=== PATIENT | female | born 1965 | race Caucasian/White ===

== ENCOUNTER 2020-10-29 09:09 | Outpatient (REF) | payer OTHER, SELFPAY ==
[2020-10-29 10:33] LABS: Thyroid Stimulating Hormone 0.16 uIU/mL (0.32-4.0)
== END 2020-10-29 09:10 | disposition home or self-care (01) ==
LOC: HO.LAB 09:09
PROVIDERS: PCP Internal Medicine; Visit Provider Internal Medicine Endocrinology, Diabetes & Metabolism
DX: E03.9 Hypothyroidism, unspecified (principal)
CPT/HCPCS: 36415; 84443

== ENCOUNTER 2020-12-27 08:06 | Outpatient (REF) | payer OTHER, SELFPAY ==
[2020-12-27 09:46] LABS: Thyroid Stimulating Hormone 1.11 uIU/mL (0.32-4.0)
== END 2020-12-27 08:07 | disposition home or self-care (01) ==
LOC: HO.LAB 08:06
PROVIDERS: PCP Internal Medicine; Visit Provider Internal Medicine Endocrinology, Diabetes & Metabolism
DX: E03.9 Hypothyroidism, unspecified (principal)
CPT/HCPCS: 36415; 84443

== ENCOUNTER 2021-02-07 08:47 | Emergency (ER) | payer OTHER, SELFPAY ==
--- NOTE | ~2021-02-07 | CT_ITS ---
EXAMINATION: CT ABDOMEN AND PELVIS WITH CONTRAST CLINICAL INFORMATION: Abdominal pain with central tenderness COMPARISON: CT abdomen and pelvis 04/29/2014 TECHNIQUE: Multidetector volumetric images were obtained from the superior aspect of the liver through the pubic symphysis following administration 85 mL of Omnipaque 350 intravenous contrast. Sagittal and coronal reformatted images were obtained on the technologist's workstation. Oral contrast: No This CT examination was performed using dose optimization techniques as appropriate, variously including the following: *Automated exposure control *Adjustment of mA and/or kV according to patient size (this includes techniques or standardized protocols for targeted exams where dose is matched to indication/reason for exam; i.e. extremities or head) *Use of iterative reconstruction technique DLP: 360 mGy-cm FINDINGS: LUNG BASES: The visualized lung bases are unremarkable. LIVER, GALLBLADDER, AND BILIARY TREE: The liver is normal in size, shape, and attenuation. No focal hepatic lesion or biliary ductal dilatation is present. The gallbladder is unremarkable with no evidence of radiopaque gallstones, gallbladder wall thickening, or obvious pericholecystic inflammatory changes. PANCREAS: Unremarkable. SPLEEN: Unremarkable. ADRENAL GLANDS: Unremarkable. KIDNEYS AND URETERS: The kidneys are normal in size, shape, and attenuation. No hydronephrosis, hydroureter, or calculi seen. No perinephric stranding. BLADDER: Unremarkable. GASTROINTESTINAL TRACT: There is scattered stool, diverticuli and gas seen throughout the colon without any significant distention. There is no evidence of diverticulitis. The small bowel loops are normal caliber. Appendix is not visualized. ABDOMINAL WALL: No significant hernia is appreciated. LYMPH NODES: Normal. VASCULAR: Unremarkable. PELVIC VISCERA: Unremarkable. OSSEOUS STRUCTURES: There is no lytic or sclerotic process. CT/CT abdomen pelvis w con IMPRESSION: No acute intra-abdominal process seen. Especially there is no abnormality seen in the epigastric region.
--- NOTE | 2021-02-07 09:25 | ED_ITS ---
HPI - Abdominal Pain General Chief Complaint: Abdominal Pain Stated Complaint: abd pain, vomiting Time Seen by Provider: 02/07/21 09:09 Source: patient Mode of arrival: ambulatory Limitations: no limitations History of Present Illness HPI narrative: 56 y/o female with history of insomnia and GERD is presenting to the ER from home complaints epigastgric abdominal pain along with nausea and diarrhea for the last 1 week. She also reports violent vomiting last night after eating. No blood in her vomit or stool. She repors having an EGD several years ago but does not know the results. She has pain in her epigastric area that is worse with eating. No fever, chills, chest pian, SOB. MD elicited complaint: abdominal pain Pertinent past history: none Onset (ago): week(s) (1) Pain Consistency: intermittent Location: epigastric Severity: moderate Quality: aching Radiation: none Migration to: no migration Exacerbating factors: eating Relieving factors: nothing Associated symptoms: nausea, vomiting and diarrhea Related Data Previous Rx's Medication Instructions Recorded ondansetron HCl 4 mg tablet 4 mg PO Q8H PRN #10 tab 02/07/21 (Zofran) pantoprazole 40 mg tablet,delayed 40 mg PO DAILY #30 tab 02/07/21 release (Protonix) Allergies Allergy/AdvReac Type Severity Reaction Status Date / Time Penicillins [PENICILLINS] Allergy Unknown DIFF Unverified 01/28/20 15:22 BREATHING Review of Systems Review of Systems Constitutional: No Fever, No Chills ENT/Mouth: No sore throat, No Rhinorrhea, No Swallowing Difficulty Cardiovascular: No Chest Pain, No SOB, No Orthopnea, No Edema Respiratory: No Cough, No Sputum, No Wheezing, No dyspnea Gastrointestinal: + Nausea, + Vomiting, + Diarrhea, + abdominal Pain, No Hematochezia, No Melena Genitourinary: No Dysuria, No Urinary Frequency, No Hematuria Musculoskeletal: No joint pain, No Myalgias Skin: No Skin Lesions, No rash Neuro: No Weakness, No Numbness, No Dizziness, No Headache Psych: + Anxiety/Panic, No Depression Heme/Lymph: No Bruising, No Lymphadenopathy Endocrine: No Polyuria, No Polydipsia Physical Exam Vital Signs: Vital Signs: Last Vital Signs Temp 97.8 F 02/07/21 10:17 Pulse 80 02/07/21 12:07 Resp 16 02/07/21 12:07 BP 142/82 H 02/07/21 12:07 Pulse Ox 98 02/07/21 12:07 Body Mass Index 23.2 Appearance: Alert. Oriented X3. No acute distress. Eyes: Pupils equal, round and reactive to light. ENT: Pharynx normal. Neck: Normal inspection. Neck supple. CVS: Normal heart rate and rhythm. Pulses normal. Respiratory: No respiratory distress. Breath sounds normal. Abdomen: Soft with moderate epigastric tenderness, negative Muprhy's sign, no rebound or guarding. +BS x4 Skin: Skin warm and dry. Normal skin color. Normal skin turgor. No rashes. Extremities: No lower extremity edema. Neuro: Oriented X 3. No motor deficit. No sensory deficit. Course Course Course Narrative: 56 y/o female presenting to the ER with 1 week of nausea, vomiting and intermittent epigastric pain. Denies ETOH or NSAIDS. No evidence of GI bleed. Possible gastroentertitis vs gastritis vs PUD. Will get labs to start, medicate with IVF, Zofran and GI cocktail. Reevaluation(s) Reevaluation #1: Lab workup is unremarkable. CT scan ordered for further evaluation as patient is still reporting pain. Reevaluation #2: CT scan is normal. Her nausea is resolved. We discussed results and concern for gastritis vs PUD. Will start on PPI, diet modifications and have her follow up with GI. She agrees with plan. Stable for d/c home with outpatient follow up. MDM - Abdominal Pain Lab Data Result diagrams: 02/07/21 09:46 02/07/21 09:46 Labs: Lab Results 02/07/21 02/07/21 02/07/21 Range/Units 09:46 09:46 09:46 WBC 6.5 (4.8-10.8) X10*3/uL RBC 5.06 (4.20-5.50) X10*6/uL Hgb 15.2 (12.0-16.0) g/dl Hct 46.4 (37-47) % MCV 91.7 (80-98) fL MCH 30.0 (27.0-33.0) pg MCHC 32.8 (31.0-35.0) g/dl RDW 12.5 (11.0-16.0) % Plt Count 203 (160-400) X10*3/uL MPV 11.9 (9.4-12.3) fL Immature Gran % (Auto) 0.3 (0.0-0.4) % Neut % (Auto) 65.2 (45-73) % Lymph % (Auto) 25.0 (20-40) % [place] % (Auto) 7.9 (2-11) % Eos % (Auto) 0.8 (0-4) % Baso % (Auto) 0.8 (0-2) % Lymph # (Auto) 1.6 (1.2-4.9) X10*3/uL [place] # (Auto) 0.5 (0.1-1.2) X10*3/uL Eos # (Auto) 0.1 (0.0-0.4) X10*3/uL Baso # (Auto) 0.1 (0.0-0.2) X10*3/uL Abs Immat Gran (auto) 0.02 (0.00-0.03) X10*3/uL Absolute Neuts (auto) 4.2 (2.0-8.3) X10*3/uL Absolute Nucleated RBC 0.000 (0.0-0.012) X10*3/uL Nucleated RBC % (auto) 0.0 (0.0-0.2) /100WBC Sodium 138 (135-145) mmol/L Potassium 4.4 (3.3-5.1) mmol/L Chloride 104 (96-108) mmol/L Carbon Dioxide 23 (22-29) mmol/L Anion Gap 15 (12-20) BUN 13 (9-16) mg/dL Creatinine 0.81 (0.5-1.4) mg/dL Estim Creat Clear Calc 57.1 Estimated GFR > 60 Random Glucose 97 (60-115) mg/dL Calcium 9.4 (8.4-10.2) mg/dL Magnesium 2.5 (1.6-2.6) mg/dL Total Bilirubin 1.3 H (0.0-1.0) mg/dL Direct Bilirubin 0.3 (0.0-0.5) mg/dL AST 29 (5-31) U/L ALT 25 (0-31) U/L Alkaline Phosphatase 59 (39-117) U/L Total Protein 8.6 H (6.5-8.0) g/dL Albumin 5.0 (3.5-5.0) g/dL Lipase 30 (8-78) U/L Urine Color Urine Appearance Urine pH (5.0-8.0) Ur Specific [place] (1.005-1.025) Urine Protein (NEG-TRACE) MG/DL Urine Glucose (UA) (NEG) MG/DL Urine Ketones (NEG) MG/DL Urine Blood (NEG) Urine Nitrite (NEG) Ur Leukocyte Esterase (NEG) COVID-19 ([facility]KO) Negative (Negative) COVID-19 Clin Com See Note 02/07/21 Range/Units 10:17 WBC (4.8-10.8) X10*3/uL RBC (4.20-5.50) X10*6/uL Hgb (12.0-16.0) g/dl Hct (37-47) % MCV (80-98) fL MCH (27.0-33.0) pg MCHC (31.0-35.0) g/dl RDW (11.0-16.0) % Plt Count (160-400) X10*3/uL MPV (9.4-12.3) fL Immature Gran % (Auto) (0.0-0.4) % Neut % (Auto) (45-73) % Lymph % (Auto) (20-40) % [place] % (Auto) (2-11) % Eos % (Auto) (0-4) % Baso % (Auto) (0-2) % Lymph # (Auto) (1.2-4.9) X10*3/uL [place] # (Auto) (0.1-1.2) X10*3/uL Eos # (Auto) (0.0-0.4) X10*3/uL Baso # (Auto) (0.0-0.2) X10*3/uL Abs Immat Gran (auto) (0.00-0.03) X10*3/uL Absolute Neuts (auto) (2.0-8.3) X10*3/uL Absolute Nucleated RBC (0.0-0.012) X10*3/uL Nucleated RBC % (auto) (0.0-0.2) /100WBC Sodium (135-145) mmol/L Potassium (3.3-5.1) mmol/L Chloride (96-108) mmol/L Carbon Dioxide (22-29) mmol/L Anion Gap (12-20) BUN (9-16) mg/dL Creatinine (0.5-1.4) mg/dL Estim Creat Clear Calc Estimated GFR Random Glucose (60-115) mg/dL Calcium (8.4-10.2) mg/dL Magnesium (1.6-2.6) mg/dL Total Bilirubin (0.0-1.0) mg/dL Direct Bilirubin (0.0-0.5) mg/dL AST (5-31) U/L ALT (0-31) U/L Alkaline Phosphatase (39-117) U/L Total Protein (6.5-8.0) g/dL Albumin (3.5-5.0) g/dL Lipase (8-78) U/L Urine Color STRAW Urine Appearance HAZY Urine pH 6.0 (5.0-8.0) Ur Specific [place] <= 1.005 (1.005-1.025) Urine Protein NEG (NEG-TRACE) MG/DL Urine Glucose (UA) NEG (NEG) MG/DL Urine Ketones NEG (NEG) MG/DL Urine Blood NEG (NEG) Urine Nitrite NEG (NEG) Ur Leukocyte Esterase NEG (NEG) COVID-19 ([facility]KO) (Negative) COVID-19 Clin Com Critical Care Time Critical Care Time Critical Care Time: No Discharge Plan Discharge Clinical Impression: Abdominal pain Qualifiers: Abdominal location: epigastric Qualified Code(s): R10.13 - Epigastric pain Patient Disposition: Home, Self-Care Instructions: Peptic Ulcer (ED), Diet for Stomach Ulcers and Gastritis (ED), Abdominal Pain (ED) Additional Instructions: Your lab workup today was unremarkable. Your CT scan was normal. You may have irritation of your stomach lining or peptic ulcers. Recommend starting prescribed antacid medication and following up with GI for further evaluation. Stick to a bland diet - no acidic or spicy foods, no greasy foods. Prescriptions: New pantoprazole [Protonix] 40 mg tablet,delayed release (DR/EC) 40 mg PO DAILY Qty: 30 RF: 0 ondansetron HCl [Zofran] 4 mg tablet 4 mg PO Q8H PRN (Reason: nausea and vomiting) Qty: 10 RF: 0 Referrals: Roz Ruano MD [Physician] - 1 week (gastritis vs PUD, rec EGD) [facility] Past Medical History Medical History (Updated 02/07/21 @ 12:50 by JASON Alvarez) Graves disease Insomnia Social History Social History Patient Tobacco Use Status: Former Tobacco user Advance Directives: Yes Advance Directives Information Provided: Yes Advance Directives on File: No
[2021-02-07 09:33] VITALS: BP 168/97; PULSE 77; RESP 16; TEMP 36.6; O2SAT 98; BMI 23.2
[2021-02-07] MEDS: 0.9 % Sodium Chloride 1,000 ML 999 ML IVCONT (09:56)
[2021-02-07] MEDS: ondansetron HCL 4 MG/2 ML VIAL IVPUSH (09:56)
[2021-02-07] MEDS: PHENobarb/Hyoscy/Atropine/Scop 10 ML ELIXIR PO (10:01)
[2021-02-07] MEDS: Lidocaine HCl Viscous 2 % 15 ML SOLUTION MUCOUS MEM (10:02)
[2021-02-07] MEDS: Magnesium Hydrox/Alum Hydrox 30 ML ORAL.SUSP PO (10:02)
[2021-02-07 10:08] LABS: MANUAL DIFF FLAG NO
[2021-02-07 10:10] LABS: Basophils Absolute Auto 0.1 X10*3/uL (0.0-0.2); Basophils Percent Auto 0.8 % (0-2); Eosinophils Absolute Auto 0.1 X10*3/uL (0.0-0.4); Eosinophils Percent Auto 0.8 % (0-4); Hematocrit 46.4 % (37-47); Hemoglobin 15.2 g/dl (12.0-16.0); Imm Gran Abs Auto 0.02 X10*3/uL (0.00-0.03); Imm Gran Pct Auto 0.3 % (0.0-0.4); Lymphocytes Absolute Auto 1.6 X10*3/uL (1.2-4.9); Mean Corpuscular HGB Conc 32.8 g/dl (31.0-35.0); Mean Corpuscular Volume 91.7 fL (80-98); Mean Platelet Volume 11.9 fL (9.4-12.3); Monocytes Absolute Auto 0.5 X10*3/uL (0.1-1.2); Monocytes Percent Auto 7.9 % (2-11); Neutrophils Absolute Auto 4.2 X10*3/uL (2.0-8.3); Neutrophils Percent Auto 65.2 % (45-73); Platelet Count 203 X10*3/uL (160-400); Red Blood Count 5.06 X10*6/uL (4.20-5.50); Red Cell Distribution Width 12.5 % (11.0-16.0); White Blood Count 6.5 X10*3/uL (4.8-10.8)
[2021-02-07 10:17] VITALS: BP 151/68; PULSE 65; RESP 17; TEMP 36.6; O2SAT 99
[2021-02-07 10:26] LABS: Alanine Aminotransferase 25 U/L (0-31); Alkaline Phosphatase 59 U/L (39-117); Anion Gap 15 (12-20); Aspartate Amino Transferase 29 U/L (5-31); Bilirubin Direct 0.3 mg/dL (0.0-0.5); Bilirubin Total 1.3 mg/dL (0.0-1.0); Blood Urea Nitrogen 13 mg/dL (9-16); Calcium 9.4 mg/dL (8.4-10.2); Carbon Dioxide 23 mmol/L (22-29); Chloride 104 mmol/L (96-108); Creatinine Clr Calc Pharmacy 57.1; Estimated Glomerular Filt Rate > 60; Glucose Random 97 mg/dL (60-115); Lipase 30 U/L (8-78); Magnesium 2.5 mg/dL (1.6-2.6); Potassium 4.4 mmol/L (3.3-5.1); Sodium 138 mmol/L (135-145); Total Protein 8.6 g/dL (6.5-8.0)
[2021-02-07 10:29] LABS: COVID-19 Test Negative (Negative)
[2021-02-07 10:33] LABS: Appearance Urine HAZY; Color Urine STRAW; Glucose Urine UA NEG (NEG); Leukocyte Esterase Urine NEG (NEG); Nitrite Urine NEG (NEG); Specific Gravity - Urine <= 1.005 (1.005-1.025); Urine Blood NEG (NEG); Urine Ketones NEG (NEG); Urine Protein NEG (NEG-TRACE)
[2021-02-07 10:40] VITALS: BP 141/79; PULSE 64; RESP 16; O2SAT 98
[2021-02-07] MEDS: iohexoL 350 MG/ML 100 ML INFUS..BTL 85 ML IV (11:24)
[2021-02-07 12:07] VITALS: BP 142/82; PULSE 80; RESP 16; O2SAT 98
== END 2021-02-07 13:08 | disposition home or self-care (01) ==
PROVIDERS: Physician Assistant; Emergency Provider Emergency Medicine; PCP Internal Medicine
DX: R10.13 Epigastric pain (principal); Z20.822 Contact with and (suspected) exposure to COVID-19; Z87.891 Personal history of nicotine dependence
CPT/HCPCS: 36415; 74177; 80048; 80076; 81003; 83690; 83735; 85025; 87635; 96361; 96374; 99284; 99285; J2405; Q9967

== ENCOUNTER 2021-03-25 | Outpatient (REF) | payer OTHER, SELFPAY ==
[2021-03-25 09:00] LABS: Thyroid Stimulating Hormone 0.26 uIU/mL (0.32-4.0)
== END 2021-03-25 00:01 | disposition home or self-care (01) ==
LOC: HO.LAB
PROVIDERS: PCP Internal Medicine Endocrinology, Diabetes & Metabolism; Visit Provider Internal Medicine Endocrinology, Diabetes & Metabolism
DX: E03.9 Hypothyroidism, unspecified (principal)
CPT/HCPCS: 36415; 84443

== ENCOUNTER 2021-06-03 07:26 | Outpatient (REF) | payer OTHER, SELFPAY ==
[2021-06-03 09:07] LABS: Thyroid Stimulating Hormone 1.25 uIU/mL (0.32-4.0)
== END 2021-06-03 07:27 | disposition home or self-care (01) ==
LOC: HO.LAB 07:26
PROVIDERS: PCP Internal Medicine; Visit Provider Internal Medicine Endocrinology, Diabetes & Metabolism
DX: E03.9 Hypothyroidism, unspecified (principal)
CPT/HCPCS: 36415; 84443

== ENCOUNTER 2021-07-12 07:24 | Outpatient (REF) | payer OTHER, SELFPAY ==
[2021-07-12 09:08] LABS: Thyroid Stimulating Hormone 1.14 uIU/mL (0.32-4.0)
== END 2021-07-12 07:25 | disposition home or self-care (01) ==
LOC: HO.LAB 07:24
PROVIDERS: PCP Internal Medicine; Visit Provider Internal Medicine Endocrinology, Diabetes & Metabolism
DX: E03.9 Hypothyroidism, unspecified (principal)
CPT/HCPCS: 36415; 84443

== ENCOUNTER 2021-09-19 06:03 | Emergency (ER) | payer OTHER, SELFPAY ==
[2021-09-19 06:08] VITALS: BP 165/92; PULSE 93; RESP 16; TEMP 36.8; O2SAT 96; BMI 21.7
[2021-09-19 07:01] LABS: MANUAL DIFF FLAG NO
[2021-09-19 07:04] LABS: Basophils Percent Auto 0.5 % (0-2); Eosinophils Absolute Auto 0.1 X10*3/uL (0.0-0.4); Hematocrit 42.5 % (37.0-47.0); Imm Gran Abs Auto 0.01 X10*3/uL (0.00-0.03); Imm Gran Pct Auto 0.2 % (0.0-0.4); Lymphocytes Absolute Auto 1.2 X10*3/uL (1.2-4.9); Lymphocytes Percent Auto 19.5 % (20-40); Mean Corpuscular HGB Conc 32.9 g/dl (31.0-35.0); Mean Corpuscular Hemoglobin 30.3 pg (27.0-33.0); Mean Platelet Volume 11.5 fL (9.4-12.3); Monocytes Absolute Auto 0.5 X10*3/uL (0.1-1.2); Monocytes Percent Auto 7.5 % (2-11); Neutrophils Absolute Auto 4.3 x10*3/uL (2.0-8.3); Neutrophils Percent Auto 71.3 % (45-73); Platelet Count 194 X10*3/uL (160-400); Red Blood Count 4.62 X10*6/uL (4.20-5.50); Red Cell Distribution Width 11.9 % (11.0-16.0)
[2021-09-19 07:21] LABS: COVID-19 Test Negative (Negative)
[2021-09-19 07:23] LABS: Alanine Aminotransferase 21 U/L (0-31); Albumin Level 4.5 g/dL (3.5-5.0); Alkaline Phosphatase 52 U/L (39-117); Anion Gap 12 (12-20); Aspartate Amino Transferase 20 U/L (5-31); Bilirubin Total 1.2 mg/dL (0.0-1.0); Blood Urea Nitrogen 16 mg/dL (9-16); Calcium 9.4 mg/dL (8.4-10.2); Carbon Dioxide 25 mmol/L (22-29); Chloride 102 mmol/L (96-108); Creatinine Clr Calc Pharmacy 57.8; Estimated Glomerular Filt Rate > 60; Glucose Random 100 mg/dL (60-115); Lipase 28 U/L (8-78); Sodium 135 mmol/L (135-145); Total Protein 7.5 g/dL (6.5-8.0)
--- NOTE | 2021-09-19 07:36 | ED_ITS ---
HPI - Abdominal Pain General Chief Complaint: Abdominal Pain Stated Complaint: Abd pain/Vomiting Time Seen by Provider: 09/19/21 07:36 Source: patient Mode of arrival: ambulatory Limitations: no limitations History of Present Illness HPI narrative: violently vomiting since yesterday with epigastric pain. 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 She may have over eaten on Saturday. MD elicited complaint: abdominal pain Pertinent past history: gastritis Onset (ago): year(s) Pain Consistency: constant Location: epigastric Severity: moderate Quality: aching Radiation: back Migration to: no migration Associated symptoms: nausea and vomiting Related Data Previous Rx's Medication Instructions Recorded ondansetron HCl 4 mg tablet 4 mg PO Q8H PRN #10 tab 02/07/21 (Zofran) pantoprazole 40 mg tablet,delayed 40 mg PO DAILY #30 tab 02/07/21 release (Protonix) ondansetron 4 mg disintegrating 4 mg PO TID PRN 5 Days tab 09/19/21 tablet Allergies Allergy/AdvReac Type Severity Reaction Status Date / Time Penicillins [PENICILLINS] Allergy Unknown DIFF Unverified 07/25/21 09:02 BREATHING Review of Systems Constitutional: Reports no additional constitutional complaints Eyes: Reports no additional eye complaints Denies dizziness Cardiovascular: Reports no additional cardiovascular complaints Respiratory: Reports as per HPI Gastrointestinal: Reports no additional gastrointestinal complaints Genitourinary: Reports no additional female genitourinary complaints Musculoskeletal: Reports no additional musculoskeletal complaints Skin/Breast: Denies rash Reports system reviewed and no additional complaints, except as documented, Denies dizziness and Denies Sensory deficit (Neuro) Psychiatric: Denies anxiety PMF Past Medical History Medical History Graves disease Insomnia Social History Social History Alcohol intake: never Patient Tobacco Use Status: Never used Tobacco Advance Directives: No Physical Exam ED Vital Signs: Vital Signs - 24 hr 09/19/21 06:08 Temperature 98.2 F Pulse Rate 93 Respiratory Rate 16 Blood Pressure 165/92 H Pulse Oximetry 96 BMI result Body Mass Index 21.7 Const General: healthy appearing Nutritional Appearance: average body habitus Orientation/consciousness: oriented to person and patient oriented x3 Limitations: no limitations HENMT Head: Yes normal to inspection Ears: external ears normal General nose exam: Normal external nose present Mouth: Normal oral and palatal mucosa present and oropharynx normal Throat: Yes posterior oropharynx normal Eyes General: appearance normal, both eyes and all related structures Neck Neck: Yes normal visual inspection Chest Chest palpation & inspection: normal inspection of the chest Resp Auscultation: clear to auscultation bilaterally Cardio Jugular venous distension: no JVD Rate: regular rate Rhythm: regular rhythm Heart sounds: S1 normal heart sound present and S2 normal heart sound present GI Other: epigastric tenderness Inspection: Yes normal to inspection Palpation (GI): Soft to palpation and No hepatosplenomegaly present Auscultation: normal bowel sounds General: Yes no CVA tenderness Back/Spine/Pelvis Back: no CVA tenderness Skin General skin exam: no rashes or lesions noted Neuro General: oriented to person and patient oriented x3 Cranial nerves: Yes CN's II-XII intact bilaterally Motor exam (neuro): 5/5 motor strength present throughout Sensory Exam: No Sensory deficit (Neuro) Extrem General: Yes normal to inspection Psych Appearance: grossly normal Course Reevaluation(s) Reevaluation #1: patient is very anxious, but physical is normal labs are normal, no indication for imaging at this time. Will dc on protonix and zofran Time: 09:27 MDM - Abdominal Pain Lab Data Result diagrams: 09/19/21 06:55 09/19/21 06:55 Labs: Lab Results 09/19/21 09/19/21 09/19/21 Range/Units 06:55 06:55 06:55 WBC 6.0 (4.8-10.8) X10*3/uL RBC 4.62 (4.20-5.50) X10*6/uL Hgb 14.0 (12.0-16.0) g/dl Hct 42.5 (37.0-47.0) % MCV 92.0 (80.0-98.0) fL MCH 30.3 (27.0-33.0) pg MCHC 32.9 (31.0-35.0) g/dl RDW 11.9 (11.0-16.0) % Plt Count 194 (160-400) X10*3/uL MPV 11.5 (9.4-12.3) fL Immature Gran % (Auto) 0.2 (0.0-0.4) % Neut % (Auto) 71.3 (45-73) % Lymph % (Auto) 19.5 L (20-40) % [place] % (Auto) 7.5 (2-11) % Eos % (Auto) 1.0 (0-4) % Baso % (Auto) 0.5 (0-2) % Lymph # (Auto) 1.2 (1.2-4.9) X10*3/uL [place] # (Auto) 0.5 (0.1-1.2) X10*3/uL Eos # (Auto) 0.1 (0.0-0.4) X10*3/uL Baso # (Auto) 0.0 (0.0-0.2) X10*3/uL Abs Immat Gran (auto) 0.01 (0.00-0.03) X10*3/uL Absolute Neuts (auto) 4.3 (2.0-8.3) x10*3/uL Absolute Nucleated RBC 0.000 (0.0-0.012) X10*3/uL Nucleated RBC % (auto) 0.0 (0.0-0.2) /100WBC Sodium 135 (135-145) mmol/L Potassium 4.0 (3.3-5.1) mmol/L Chloride 102 (96-108) mmol/L Carbon Dioxide 25 (22-29) mmol/L Anion Gap 12 (12-20) BUN 16 (9-16) mg/dL Creatinine 0.80 (0.5-1.4) mg/dL Estim Creat Clear Calc 57.8 Estimated GFR > 60 Random Glucose 100 (60-115) mg/dL Calcium 9.4 (8.4-10.2) mg/dL Total Bilirubin 1.2 H (0.0-1.0) mg/dL AST 20 (5-31) U/L ALT 21 (0-31) U/L Alkaline Phosphatase 52 (39-117) U/L Total Protein 7.5 (6.5-8.0) g/dL Albumin 4.5 (3.5-5.0) g/dL Lipase 28 (8-78) U/L Urine Color Urine Appearance Urine pH (5.0-8.0) Ur Specific [place] (1.005-1.025) Urine Protein (NEG-TRACE) MG/DL Urine Glucose (UA) (NEG) MG/DL Urine Ketones (NEG) MG/DL Urine Blood (NEG) Urine Nitrite (NEG) Ur Leukocyte Esterase (NEG) COVID-19 (YUMIKO) Negative (Negative) COVID-19 Clin Com See Note 09/19/21 Range/Units 07:58 WBC (4.8-10.8) X10*3/uL RBC (4.20-5.50) X10*6/uL Hgb (12.0-16.0) g/dl Hct (37.0-47.0) % MCV (80.0-98.0) fL MCH (27.0-33.0) pg MCHC (31.0-35.0) g/dl RDW (11.0-16.0) % Plt Count (160-400) X10*3/uL MPV (9.4-12.3) fL Immature Gran % (Auto) (0.0-0.4) % Neut % (Auto) (45-73) % Lymph % (Auto) (20-40) % [place] % (Auto) (2-11) % Eos % (Auto) (0-4) % Baso % (Auto) (0-2) % Lymph # (Auto) (1.2-4.9) X10*3/uL [place] # (Auto) (0.1-1.2) X10*3/uL Eos # (Auto) (0.0-0.4) X10*3/uL Baso # (Auto) (0.0-0.2) X10*3/uL Abs Immat Gran (auto) (0.00-0.03) X10*3/uL Absolute Neuts (auto) (2.0-8.3) x10*3/uL Absolute Nucleated RBC (0.0-0.012) X10*3/uL Nucleated RBC % (auto) (0.0-0.2) /100WBC Sodium (135-145) mmol/L Potassium (3.3-5.1) mmol/L Chloride (96-108) mmol/L Carbon Dioxide (22-29) mmol/L Anion Gap (12-20) BUN (9-16) mg/dL Creatinine (0.5-1.4) mg/dL Estim Creat Clear Calc Estimated GFR Random Glucose (60-115) mg/dL Calcium (8.4-10.2) mg/dL Total Bilirubin (0.0-1.0) mg/dL AST (5-31) U/L ALT (0-31) U/L Alkaline Phosphatase (39-117) U/L Total Protein (6.5-8.0) g/dL Albumin (3.5-5.0) g/dL Lipase (8-78) U/L Urine Color COLORLESS Urine Appearance CLEAR Urine pH 7.0 (5.0-8.0) Ur Specific [place] <= 1.005 (1.005-1.025) Urine Protein NEG (NEG-TRACE) MG/DL Urine Glucose (UA) NEG (NEG) MG/DL Urine Ketones NEG (NEG) MG/DL Urine Blood NEG (NEG) Urine Nitrite NEG (NEG) Ur Leukocyte Esterase NEG (NEG) COVID-19 (Y[facility]IKO) (Negative) COVID-19 Clin Com Discharge Plan Discharge Clinical Impression: Gastritis Patient Disposition: Home, Self-Care Instructions: Gastritis (ED) Prescriptions: New ondansetron 4 mg tablet,disintegrating 4 mg PO TID PRN (Reason: nausea and vomiting) 5 Days 0RF No Action pantoprazole [Protonix] 40 mg tablet,delayed release (DR/EC) 40 mg PO DAILY Qty: 30 0RF ondansetron HCl [Zofran] 4 mg tablet 4 mg PO Q8H PRN (Reason: nausea and vomiting) Qty: 10 0RF Referrals: Larry Borjas MD [Primary Care Provider] - 5 days
[2021-09-19] MEDS: Pantoprazole Sodium 40 MG/10 ML VIAL IVPUSH (08:04)
[2021-09-19] MEDS: ondansetron HCL 4 MG/2 ML VIAL IVPUSH (08:04)
[2021-09-19 08:05] LABS: Appearance Urine CLEAR; Glucose Urine UA NEG (NEG); Leukocyte Esterase Urine NEG (NEG); Nitrite Urine NEG (NEG); Specific Gravity - Urine <= 1.005 (1.005-1.025); Urine Blood NEG (NEG); Urine Ketones NEG (NEG); Urine Protein NEG (NEG-TRACE)
[2021-09-19] MEDS: 0.9 % Sodium Chloride 1,000 ML 999 ML IVCONT (08:05)
[2021-09-19 08:06] LABS: Color Urine COLORLESS
== END 2021-09-19 09:46 | disposition home or self-care (01) ==
PROVIDERS: Emergency Provider Emergency Medicine; PCP Internal Medicine
DX: K29.70 Gastritis, unspecified, without bleeding (principal); R10.13 Epigastric pain; Z20.822 Contact with and (suspected) exposure to COVID-19; Z79.899 Other long term (current) drug therapy
CPT/HCPCS: 36415; 80053; 81003; 83690; 85025; 87635; 96361; 96374; 96375; 99284; J2405

== ENCOUNTER 2021-10-07 07:38 | Outpatient (REF) | payer OTHER, SELFPAY ==
[2021-10-07 09:21] LABS: Thyroid Stimulating Hormone 0.29 uIU/mL (0.32-4.0)
== END 2021-10-07 07:39 | disposition home or self-care (01) ==
LOC: HO.LAB 07:38
PROVIDERS: PCP Internal Medicine; Visit Provider Internal Medicine Endocrinology, Diabetes & Metabolism
DX: E03.9 Hypothyroidism, unspecified (principal)
CPT/HCPCS: 36415; 84443

== ENCOUNTER 2021-11-03 12:25 | Outpatient (REF) | payer OTHER, SELFPAY ==
[2021-11-03 13:56] LABS: Thyroid Stimulating Hormone 1.03 uIU/mL (0.32-4.0)
== END 2021-11-03 12:26 | disposition home or self-care (01) ==
LOC: HO.LAB 12:25
PROVIDERS: PCP Internal Medicine; Visit Provider Internal Medicine Endocrinology, Diabetes & Metabolism
DX: E03.9 Hypothyroidism, unspecified (principal)
CPT/HCPCS: 36415; 84443

== ENCOUNTER 2022-03-26 08:39 | Outpatient (REF) | payer OTHER, SELFPAY ==
[2022-03-26 11:52] LABS: TSH reflex Free T4 2.42 uIU/mL (0.32-4.0)
== END 2022-03-26 08:40 | disposition home or self-care (01) ==
LOC: HO.LAB 08:39
PROVIDERS: PCP Internal Medicine; Visit Provider Internal Medicine Endocrinology, Diabetes & Metabolism
DX: E04.2 Nontoxic multinodular goiter (principal)
CPT/HCPCS: 36415; 84443

== ENCOUNTER 2022-04-30 06:16 | Emergency (ER) | payer OTHER, SELFPAY ==
--- NOTE | ~2022-04-30 | CT_ITS ---
EXAMINATION: CT ABDOMEN AND PELVIS WITH CONTRAST CLINICAL INFORMATION: Left mid abdominal pain COMPARISON: 02/07/2021 TECHNIQUE: Multidetector volumetric images were obtained from the superior aspect of the liver through the pubic symphysis following administration 85 mL of Omnipaque 350 intravenous contrast. Sagittal and coronal reformatted images were obtained on the technologist's workstation. Oral contrast: No This CT examination was performed using dose optimization techniques as appropriate, variously including the following: *Automated exposure control *Adjustment of mA and/or kV according to patient size (this includes techniques or standardized protocols for targeted exams where dose is matched to indication/reason for exam; i.e. extremities or head) *Use of iterative reconstruction technique DLP: 338 mGy-cm FINDINGS: LUNG BASES: The visualized lung bases are unremarkable. LIVER, GALLBLADDER, AND BILIARY TREE: The liver is normal in size, shape, and attenuation. No focal hepatic lesion or biliary ductal dilatation is present. The gallbladder is unremarkable with no evidence of radiopaque gallstones, gallbladder wall thickening, or obvious pericholecystic inflammatory changes. PANCREAS: Unremarkable. SPLEEN: Unremarkable. ADRENAL GLANDS: Unremarkable. KIDNEYS AND URETERS: The kidneys are normal in size, shape, and attenuation. No hydronephrosis, hydroureter, or calculi seen. No perinephric stranding. BLADDER: Unremarkable. GASTROINTESTINAL TRACT: Stomach is collapsed. Small bowel nondilated. The appendix is not seen but there are no right lower quadrant inflammatory changes. Diverticulosis without evidence of colitis or diverticulitis. ABDOMINAL WALL: No significant hernia is appreciated. LYMPH NODES: Normal. VASCULAR: Moderate calcified atherosclerotic changes of the normal caliber aorta. PELVIC VISCERA: Unremarkable. OSSEOUS STRUCTURES: Unremarkable. CT/CT abdomen pelvis w IV con IMPRESSION: No acute CT findings. Fleischner guidelines were followed.
[2022-04-30 06:18] VITALS: BP 165/105; PULSE 99; RESP 17; TEMP 36.4; O2SAT 97; BMI 20.7
--- NOTE | 2022-04-30 06:23 | ECG_ITS ---
Test Reason : RAPID HEART BEAT Blood Pressure : / mmHG Vent. Rate : 098 BPM Atrial Rate : 098 BPM P-R Int : 172 ms QRS Dur : 076 ms QT Int : 358 ms P-R-T Axes : 079 074 063 degrees QTc Int : 457 ms Normal sinus rhythm Normal ECG When compared to the previous EKG of No significant changes seen Referred By: Generic ED Physician Electronically Signed By:Adama Kimbrough
[2022-04-30 06:51] LABS: MANUAL DIFF FLAG NO
[2022-04-30 06:53] LABS: Basophils Percent Auto 0.7 % (0-2); Eosinophils Percent Auto 0.5 % (0-4); Hematocrit 41.7 % (37.0-47.0); Hemoglobin 13.7 g/dl (12.0-16.0); Imm Gran Abs Auto 0.02 X10*3/uL (0.00-0.03); Imm Gran Pct Auto 0.3 % (0.0-0.4); Lymphocytes Percent Auto 16.8 % (20-40); Mean Corpuscular HGB Conc 32.9 g/dl (31.0-35.0); Mean Corpuscular Hemoglobin 30.1 pg (27.0-33.0); Mean Corpuscular Volume 91.6 fL (80.0-98.0); Monocytes Absolute Auto 0.3 X10*3/uL (0.1-1.2); Monocytes Percent Auto 4.7 % (2-11); Neutrophils Absolute Auto 4.5 x10*3/uL (2.0-8.3); Platelet Count 180 X10*3/uL (160-400); Red Blood Count 4.55 X10*6/uL (4.20-5.50); Red Cell Distribution Width 11.7 % (11.0-16.0); White Blood Count 5.8 X10*3/uL (4.8-10.8)
[2022-04-30 07:16] LABS: Troponin-I High Sensitivity < 3.5 ng/L (<3.5-17.0)
[2022-04-30 07:27] LABS: Alanine Aminotransferase 27 U/L (0-31); Albumin Level 4.3 g/dL (3.5-5.0); Alkaline Phosphatase 51 U/L (39-117); Anion Gap 12 (12-20); Aspartate Amino Transferase 22 U/L (5-31); Bilirubin Total 0.9 mg/dL (0.0-1.0); Blood Urea Nitrogen 17 mg/dL (9-16); Calcium 9.2 mg/dL (8.4-10.2); Carbon Dioxide 26 mmol/L (22-29); Chloride 101 mmol/L (96-108); Creatinine Clr Calc Pharmacy 60.1; Estimated Glomerular Filt Rate > 60; Glucose Random 114 mg/dL (60-115); Potassium 4.2 mmol/L (3.3-5.1); Sodium 135 mmol/L (135-145); Thyroid Stimulating Hormone 2.46 uIU/mL (0.32-4.0)
[2022-04-30 07:43] VITALS: BP 132/80; PULSE 87; RESP 15; TEMP 36.8; O2SAT 98
--- NOTE | 2022-04-30 07:50 | ED_ITS ---
HPI - General Adult General Chief complaint: Arrhythmia/Palpitations Stated complaint: heart palpitations, stomach pain Time Seen by Provider: 04/30/22 07:28 Source: patient and old records reviewed History of Present Illness HPI narrative: Patient states for the past 2 days her primary symptoms have included nausea and abdominal pain. This morning she vomited several times, forcefully. She had a loose bowel movement as well. No watery diarrhea however. No blood. Some chills but no documented fever. Mild cough Positive palpitations. History of thyroid disease and is concerned her thyroid levels may be high. No chest pain. She does describe GERD like symptoms however. Family history of stomach cancer for which she is followed by GI. Last endoscopy was within the year. Related Data Previous Rx's Medication Instructions Recorded ondansetron HCl 4 mg tablet 4 mg PO Q8H PRN nausea and 02/07/21 (Zofran) vomiting #10 tabs pantoprazole 40 mg tablet,delayed 40 mg PO DAILY #30 tabs 02/07/21 release (Protonix) ondansetron 4 mg disintegrating 4 mg PO TID PRN nausea and 09/19/21 tablet vomiting 5 days ondansetron 4 mg disintegrating 4 mg PO Q6H PRN nausea and 04/30/22 tablet vomiting #14 tabs Allergies Allergy/AdvReac Type Severity Reaction Status Date / Time Penicillins [PENICILLINS] Allergy Unknown DIFF Verified 04/30/22 08:07 BREATHING Review of Systems Constitutional: Comments: Malaise. No fevers or chills Cardiovascular: Comments: Rapid heartbeat sensation Respiratory: Comments: Cough without phlegm or dyspnea Gastrointestinal: Comments: Abdominal pain with nausea vomiting and 1 loose bowel movement Musculoskeletal: Comments: No musculoskeletal complaints Integumentary/Breasts: Comments: No rash Neurologic: Comments: No focal weakness PMFSH Past Medical History Medical History Graves disease Insomnia Social History Social History Alcohol intake: never Patient Tobacco Use Status: Never used Tobacco Advance Directives: Yes Advance Directives Information Provided: No Advance Directives on File: No Physical Exam ED Vital Signs: Vital Signs - 24 hr 04/30/22 06:18 04/30/22 07:43 04/30/22 09:47 Temperature 97.5 F 98.2 F Pulse Rate 99 87 81 Respiratory Rate 17 15 15 Blood Pressure 165/105 H 132/80 117/68 Pulse Oximetry 97 98 97 Oxygen Delivery Method Room Air Room Air Room Air 04/30/22 10:33 Temperature Pulse Rate 83 Respiratory Rate 17 Blood Pressure 130/75 Pulse Oximetry 97 Oxygen Delivery Method Room Air BMI result Body Mass Index 20.7 Const Other: Awake and alert. No acute distress. Vital signs normal without tachycardia Resp Other: Clear and equal bilaterally without wheezes rales or rhonchi Cardio Other: Regular rate and rhythm without murmurs rubs or gallops GI Other: Soft. Nondistended. Tenderness along left mid upper abdomen with mild guarding. No rebound. Bowel sounds normal. Skin Other: Warm pink and dry without rash Neuro Other: Grossly Nonfocal neuro exam Extrem Other: No calf tenderness or pedal edema Course Course Course Narrative: 07:55. IV normal saline IV Zofran CT scan and lipase ordered. Respiratory panel ordered CBC shows normal white count and normal hemoglobin. Chemistry significant for BUN of 17 0 with a normal creatinine. Likely representing some [id number] dehydration. Respiratory panel, however, is positive for rhino virus enterovirus. This is certainly consistent with her syndrome. Stable for discharge home. Symptomatic treatment Medications Administered Discontinued Medications Generic Name Dose Route Start Last Admin Trade Name Freq PRN Reason Stop Dose Admin Sodium Chloride 1,000 mls @ 999 mls/hr 04/30/22 08:00 04/30/22 09:34 Ns IV 04/30/22 09:00 Infused .Q1H1M DANIELITO Infusion Promethazine HCl 12.5 mg/ 50.5 mls @ 202 mls/hr 04/30/22 10:18 04/30/22 11:02 Sodium Chloride IV 04/30/22 10:19 Infused ONCE ONE Infusion Iohexol 100 ml 04/30/22 09:24 04/30/22 09:28 Iohexol 350 Mg/Ml 100 Ml Infus..Btl IV 04/30/22 09:25 85 ml ONCE ONE Administration Ondansetron HCl 4 mg 04/30/22 07:49 04/30/22 08:07 Ondansetron Hcl 4 Mg/2 Ml Vial IVPUSH 04/30/22 07:50 4 mg ONCE ONE Administration Pantoprazole Sodium 40 mg 04/30/22 07:49 04/30/22 08:07 Pantoprazole Sodium 40 Mg/10 Ml Vial IVPUSH 04/30/22 07:50 40 mg ONCE ONE Administration Medical Decision Making Medical Decision Making MDM Narrative: Patient primarily with abdominal pain and nausea vomiting but with other symptoms of cough and palpitations. This is in the setting of Graves disease on thyroid replacement therapy. Differential Diagnosis Hyperthyroidism Viral gastroenteritis Pancreatitis Colitis Diverticulitis Gastritis Dehydration Lab Data Result Diagrams: 04/30/22 06:46 04/30/22 06:46 Labs: Lab Results 04/30/22 04/30/22 04/30/22 Range/Units 06:46 06:46 06:46 WBC 5.8 (4.8-10.8) X10*3/uL RBC 4.55 (4.20-5.50) X10*6/uL Hgb 13.7 (12.0-16.0) g/dl Hct 41.7 (37.0-47.0) % MCV 91.6 (80.0-98.0) fL MCH 30.1 (27.0-33.0) pg MCHC 32.9 (31.0-35.0) g/dl RDW 11.7 (11.0-16.0) % Plt Count 180 (160-400) X10*3/uL MPV 11.0 (9.4-12.3) fL Immature Gran % (Auto) 0.3 (0.0-0.4) % Neut % (Auto) 77.0 H (45-73) % Lymph % (Auto) 16.8 L (20-40) % [place] % (Auto) 4.7 (2-11) % Eos % (Auto) 0.5 (0-4) % Baso % (Auto) 0.7 (0-2) % Lymph # (Auto) 1.0 L (1.2-4.9) X10*3/uL [place] # (Auto) 0.3 (0.1-1.2) X10*3/uL Eos # (Auto) 0.0 (0.0-0.4) X10*3/uL Baso # (Auto) 0.0 (0.0-0.2) X10*3/uL Abs Immat Gran (auto) 0.02 (0.00-0.03) X10*3/uL Absolute Neuts (auto) 4.5 (2.0-8.3) x10*3/uL Absolute Nucleated RBC 0.000 (0.0-0.012) X10*3/uL Nucleated RBC % (auto) 0.0 (0.0-0.2) /100WBC Sodium 135 (135-145) mmol/L Potassium 4.2 (3.3-5.1) mmol/L Chloride 101 (96-108) mmol/L Carbon Dioxide 26 (22-29) mmol/L Anion Gap 12 (12-20) BUN 17 H (9-16) mg/dL Creatinine 0.76 (0.5-1.4) mg/dL Estim Creat Clear Calc 60.1 Estimated GFR > 60 Random Glucose 114 (60-115) mg/dL Calcium 9.2 (8.4-10.2) mg/dL Magnesium 2.0 (1.6-2.6) mg/dL Total Bilirubin 0.9 (0.0-1.0) mg/dL AST 22 (5-31) U/L ALT 27 (0-31) U/L Alkaline Phosphatase 51 (39-117) U/L Troponin I High Sens < 3.5 (<3.5-17.0) ng/L Total Protein 7.0 (6.5-8.0) g/dL Albumin 4.3 (3.5-5.0) g/dL Lipase 29 (8-78) U/L TSH 2.46 (0.32-4.0) uIU/mL Respiratory Panel [place] Adenovirus (Rapid PCR) (Not Detect.) B.pert (TEM-PCR) (Not Detect.) B.parapertussis DNA PCR (Not Detect.) C. pneumoniae DNA (PCR) (Not Detect.) Coronavirus OC43 (PCR) (Not Detect.) Coronavirus HKU1 (PCR) (Not Detect.) Coronavirus 229E (PCR) (Not Detect.) Coronavirus NL63 (PCR) (Not Detect.) Human Metapneumovir PCR (Not Detect.) Influenza A (RT-PCR) (Not Detect.) Influenza B (RT-PCR) (Not Detect.) M. pneumoniae (PCR) (Not Detect.) Parainfluenza 1 (PCR) (Not Detect.) Parainfluenza 2 (PCR) (Not Detect.) Parainfluenza 3 (PCR) (Not Detect.) Parainfluenza 4 (PCR) (Not Detect.) RSV (PCR) (Not Detect.) Entero/Rhino (PCR) (Not Detect.) SARS-CoV-2 RNA (RT-PCR) (Not Detect.) 04/30/22 Range/Units 09:06 WBC (4.8-10.8) X10*3/uL RBC (4.20-5.50) X10*6/uL Hgb (12.0-16.0) g/dl Hct (37.0-47.0) % MCV (80.0-98.0) fL MCH (27.0-33.0) pg MCHC (31.0-35.0) g/dl RDW (11.0-16.0) % Plt Count (160-400) X10*3/uL MPV (9.4-12.3) fL Immature Gran % (Auto) (0.0-0.4) % Neut % (Auto) (45-73) % Lymph % (Auto) (20-40) % [place] % (Auto) (2-11) % Eos % (Auto) (0-4) % Baso % (Auto) (0-2) % Lymph # (Auto) (1.2-4.9) X10*3/uL [place] # (Auto) (0.1-1.2) X10*3/uL Eos # (Auto) (0.0-0.4) X10*3/uL Baso # (Auto) (0.0-0.2) X10*3/uL Abs Immat Gran (auto) (0.00-0.03) X10*3/uL Absolute Neuts (auto) (2.0-8.3) x10*3/uL Absolute Nucleated RBC (0.0-0.012) X10*3/uL Nucleated RBC % (auto) (0.0-0.2) /100WBC Sodium (135-145) mmol/L Potassium (3.3-5.1) mmol/L Chloride (96-108) mmol/L Carbon Dioxide (22-29) mmol/L Anion Gap (12-20) BUN (9-16) mg/dL Creatinine (0.5-1.4) mg/dL Estim Creat Clear Calc Estimated GFR Random Glucose (60-115) mg/dL Calcium (8.4-10.2) mg/dL Magnesium (1.6-2.6) mg/dL Total Bilirubin (0.0-1.0) mg/dL AST (5-31) U/L ALT (0-31) U/L Alkaline Phosphatase (39-117) U/L Troponin I High Sens (<3.5-17.0) ng/L Total Protein (6.5-8.0) g/dL Albumin (3.5-5.0) g/dL Lipase (8-78) U/L TSH (0.32-4.0) uIU/mL Respiratory Panel [place] See Note Adenovirus (Rapid PCR) Not Detected (Not Detect.) B.pert (TEM-PCR) Not Detected (Not Detect.) B.parapertussis DNA PCR Not Detected (Not Detect.) C. pneumoniae DNA (PCR) Not Detected (Not Detect.) Coronavirus OC43 (PCR) Not Detected (Not Detect.) Coronavirus HKU1 (PCR) Not Detected (Not Detect.) Coronavirus 229E (PCR) Not Detected (Not Detect.) Coronavirus NL63 (PCR) Not Detected (Not Detect.) Human Metapneumovir PCR Not Detected (Not Detect.) Influenza A (RT-PCR) Not Detected (Not Detect.) Influenza B (RT-PCR) Not Detected (Not Detect.) M. pneumoniae (PCR) Not Detected (Not Detect.) Parainfluenza 1 (PCR) Not Detected (Not Detect.) Parainfluenza 2 (PCR) Not Detected (Not Detect.) Parainfluenza 3 (PCR) Not Detected (Not Detect.) Parainfluenza 4 (PCR) Not Detected (Not Detect.) RSV (PCR) Not Detected (Not Detect.) Entero/Rhino (PCR) Detected A (Not Detect.) SARS-CoV-2 RNA (RT-PCR) Not Detected (Not Detect.) Discharge Plan Discharge Clinical Impression: Upper respiratory infection, viral, Dehydration, Diarrhea Patient Disposition: Home, Self-Care Instructions: Dehydration (ED), Upper Respiratory Infection (ED), Acute Diarrhea (ED) Additional Instructions: Your workup today showed you have mild dehydration and entero/rhinovirus. Treatment is symptomatic. Drink plenty of liquids. Tylenol or ibuprofen for fevers and body aches. Zofran is a medicine for nausea. Prescriptions: New ondansetron 4 mg tablet,disintegrating 4 mg PO Q6H PRN (Reason: nausea and vomiting) Qty: 14 0RF No Action pantoprazole [Protonix] 40 mg tablet,delayed release (DR/EC) 40 mg PO DAILY Qty: 30 0RF ondansetron HCl [Zofran] 4 mg tablet 4 mg PO Q8H PRN (Reason: nausea and vomiting) Qty: 10 0RF ondansetron 4 mg tablet,disintegrating 4 mg PO TID PRN (Reason: nausea and vomiting) 5 Days 0RF
[2022-04-30] MEDS: 0.9 % Sodium Chloride 1,000 ML 999 ML IV (08:03)
[2022-04-30] MEDS: ondansetron HCL 4 MG/2 ML VIAL IVPUSH (08:07)
[2022-04-30] MEDS: Pantoprazole Sodium 40 MG/10 ML VIAL IVPUSH (08:07)
[2022-04-30 08:53] LABS: Lipase 29 U/L (8-78)
[2022-04-30] MEDS: iohexoL 350 MG/ML 100 ML INFUS..BTL IV (09:28)
[2022-04-30 09:47] VITALS: BP 117/68; PULSE 81; RESP 15; O2SAT 97
[2022-04-30 10:33] VITALS: BP 130/75; PULSE 83; RESP 17; O2SAT 97
[2022-04-30 10:55] LABS: Adenovirus PCR Not Detected (Not Detect.); Bordetella parapertussis PCR Not Detected (Not Detect.); Bordetella pertussis PCR Not Detected (Not Detect.); Chlamydia pneumoniae PCR Not Detected (Not Detect.); Coronavirus 229E PCR Not Detected (Not Detect.); Coronavirus HKU1 PCR Not Detected (Not Detect.); Coronavirus NL63 PCR Not Detected (Not Detect.); Coronavirus OC43 PCR Not Detected (Not Detect.); Human metapneumovirus PCR Not Detected (Not Detect.); Influenza A PCR Not Detected (Not Detect.); Influenza B PCR Not Detected (Not Detect.); Mycoplasma pneumoniae PCR Not Detected (Not Detect.); Parainfluenza 1 PCR Not Detected (Not Detect.); Parainfluenza 2 PCR Not Detected (Not Detect.); Parainfluenza 3 PCR Not Detected (Not Detect.); Parainfluenza 4 PCR Not Detected (Not Detect.); RSV PCR Not Detected (Not Detect.); Rhino/Enterovirus PCR Detected (Not Detect.); SARS-CoV-2 PCR Not Detected (Not Detect.)
== END 2022-04-30 11:55 | disposition home or self-care (01) ==
PROVIDERS: Emergency Provider Emergency Medicine; PCP Family Medicine
DX: R00.2 Palpitations (principal); R10.13 Epigastric pain; E86.0 Dehydration; R19.7 Diarrhea, unspecified; Z79.899 Other long term (current) drug therapy
CPT/HCPCS: 36415; 74177; 80053; 83690; 83735; 84443; 84484; 85025; 87633; 93005; 96361; 96365; 96375; 99284; J2405; J2550; Q9967

== ENCOUNTER 2022-07-14 08:33 | Outpatient (REF) | payer OTHER, SELFPAY ==
[2022-07-14 09:56] LABS: Thyroid Stimulating Hormone 0.95 uIU/mL (0.32-4.0)
== END 2022-07-14 08:34 | disposition home or self-care (01) ==
LOC: HO.LAB 08:33
PROVIDERS: PCP Family Medicine; Visit Provider Internal Medicine Endocrinology, Diabetes & Metabolism
DX: E03.9 Hypothyroidism, unspecified (principal)
CPT/HCPCS: 36415; 84443

== ENCOUNTER 2022-09-21 08:44 | Outpatient (REF) | payer OTHER, SELFPAY ==
[2022-09-21 10:01] LABS: TSH reflex Free T4 2.42 uIU/mL (0.32-4.0)
== END 2022-09-21 08:45 | disposition home or self-care (01) ==
LOC: HO.LAB 08:44
PROVIDERS: PCP Family Medicine; Visit Provider Internal Medicine Endocrinology, Diabetes & Metabolism
DX: E03.9 Hypothyroidism, unspecified (principal)
CPT/HCPCS: 36415; 84443

== ENCOUNTER 2022-10-20 07:23 | Outpatient (REF) | payer OTHER, SELFPAY ==
[2022-10-20 07:32] LABS: MANUAL DIFF FLAG NO
[2022-10-20 08:08] LABS: Basophils Percent Auto 0.7 % (0-2); Eosinophils Absolute Auto 0.1 X10*3/uL (0.0-0.4); Eosinophils Percent Auto 1.3 % (0-4); Hematocrit 42.1 % (37.0-47.0); Hemoglobin 13.7 g/dl (12.0-16.0); Imm Gran Abs Auto 0.01 X10*3/uL (0.00-0.03); Imm Gran Pct Auto 0.2 % (0.0-0.4); Lymphocytes Absolute Auto 1.4 X10*3/uL (1.2-4.9); Lymphocytes Percent Auto 22.2 % (20-40); Mean Corpuscular HGB Conc 32.5 g/dl (31.0-35.0); Mean Corpuscular Hemoglobin 30.4 pg (27.0-33.0); Mean Corpuscular Volume 93.6 fL (80.0-98.0); Mean Platelet Volume 11.7 fL (9.4-12.3); Monocytes Absolute Auto 0.5 X10*3/uL (0.1-1.2); Monocytes Percent Auto 7.7 % (2-11); Neutrophils Absolute Auto 4.1 x10*3/uL (2.0-8.3); Neutrophils Percent Auto 67.9 % (45-73); Platelet Count 182 X10*3/uL (160-400); White Blood Count 6.1 X10*3/uL (4.8-10.8)
[2022-10-20 08:42] LABS: Cholesterol 212 mg/dL; HDL Cholesterol 56 mg/dL; LDL Cholesterol Calculated 144 mg/dl; Triglycerides 60 mg/dL
== END 2022-10-20 07:24 | disposition home or self-care (01) ==
LOC: HO.LAB 07:23
PROVIDERS: PCP Family Medicine; Visit Provider Family Medicine
DX: E89.0 Postprocedural hypothyroidism (principal); R63.4 Abnormal weight loss
CPT/HCPCS: 36415; 80061; 85025

== ENCOUNTER 2023-06-07 02:49 | Emergency (ER) | payer OTHER, SELFPAY ==
--- NOTE | 2023-06-07 | ECG_ITS ---
Test Reason : ABD PAIN Blood Pressure : / mmHG Vent. Rate : 114 BPM Atrial Rate : 114 BPM P-R Int : 160 ms QRS Dur : 068 ms QT Int : 314 ms P-R-T Axes : 085 076 069 degrees QTc Int : 432 ms Sinus tachycardia Biatrial enlargement Nonspecific ST and T wave abnormality Abnormal ECG When compared with ECG of 30-APR-2022 06:39, No significant change was found Referred By: Generic ED Physician Electronically Signed By:Adama Kimbrough
[2023-06-07 03:05] VITALS: BP 137/61; PULSE 127; RESP 20; TEMP 37.7; O2SAT 98; BMI 19.3
[2023-06-07 03:24] LABS: MANUAL DIFF FLAG NO
[2023-06-07 03:28] LABS: Basophils Absolute Auto 0.1 X10*3/uL (0.0-0.2); Basophils Percent Auto 0.6 % (0-2); Eosinophils Absolute Auto 0.1 X10*3/uL (0.0-0.4); Hematocrit 39.5 % (37.0-47.0); Hemoglobin 13.3 g/dl (12.0-16.0); Imm Gran Abs Auto 0.03 X10*3/uL (0.00-0.03); Imm Gran Pct Auto 0.4 % (0.0-0.4); Lymphocytes Absolute Auto 0.3 X10*3/uL (1.2-4.9); Mean Corpuscular HGB Conc 33.7 g/dl (31.0-35.0); Mean Corpuscular Hemoglobin 30.4 pg (27.0-33.0); Mean Corpuscular Volume 90.4 fL (80.0-98.0); Mean Platelet Volume 10.9 fL (9.4-12.3); Monocytes Absolute Auto 0.6 X10*3/uL (0.1-1.2); Monocytes Percent Auto 7.4 % (2-11); Neutrophils Absolute Auto 6.9 x10*3/uL (2.0-8.3); Neutrophils Percent Auto 86.6 % (45-73); Platelet Count 188 X10*3/uL (160-400); Red Blood Count 4.37 X10*6/uL (4.20-5.50); Red Cell Distribution Width 12.4 % (11.0-16.0)
[2023-06-07 03:41] LABS: Alanine Aminotransferase 17 U/L (0-31); Albumin Level 4.4 g/dL (3.5-5.0); Alkaline Phosphatase 54 U/L (39-117); Anion Gap 18 (12-20); Aspartate Amino Transferase 17 U/L (5-31); Bilirubin Direct 0.3 mg/dL (0.0-0.5); Bilirubin Total 1.2 mg/dL (0.0-1.0); Blood Urea Nitrogen 15 mg/dL (9-16); Calcium 9.2 mg/dL (8.4-10.2); Carbon Dioxide 24 mmol/L (22-29); Chloride 100 mmol/L (96-108); Creatinine Clr Calc Pharmacy 44.1; Estimated Glomerular Filt Rate 57; Glucose Random 100 mg/dL (60-115); Lipase 30 U/L (8-78); Potassium 3.6 mmol/L (3.3-5.1); Sodium 138 mmol/L (135-145); Total Protein 7.7 g/dL (6.5-8.0)
[2023-06-07 04:33] VITALS: BP 149/89; PULSE 111; RESP 18; TEMP 36.4; O2SAT 100
--- NOTE | 2023-06-07 04:34 | PC.NURSE ---
Pt reports epigastric abdominal pain 10/10, worsening over the last couple days. Pt reports weakness, had a near fall getting up from wheelchair to stretcher.Unable to keep anything down for 3 days.
--- NOTE | 2023-06-07 04:47 | ED_ITS ---
HPI - Abdominal Pain General Chief Complaint: Abdominal Pain Stated Complaint: abd pain Time Seen by Provider: 06/07/23 04:47 Source: patient Mode of arrival: ambulatory Limitations: no limitations History of Present Illness HPI narrative: Patient with history of IBS anxiety?Bozena rings been followed by GI on PPI complaining of pain in epigastric with nausea vomiting for last 3 -4 weeks patient feels food gets stuck more often now able to drink liquids speaking full sentences with increased anxiety no fever no chills no cough Related Data Previous Rx's Medication Instructions Recorded ondansetron HCl 4 mg tablet 4 mg PO Q8H PRN nausea and 02/07/21 (Zofran) vomiting #10 tabs pantoprazole 40 mg tablet,delayed 40 mg PO DAILY #30 tabs 02/07/21 release (Protonix) ondansetron 4 mg disintegrating 4 mg PO TID PRN nausea and 09/19/21 tablet vomiting 5 days ondansetron 4 mg disintegrating 4 mg PO Q6H PRN nausea and 04/30/22 tablet vomiting #14 tabs morphine 15 mg immediate release 15 mg PO Q8H PRN pain #10 tabs 06/07/23 tablet ondansetron 4 mg disintegrating 4 mg PO Q6-8H PRN nausea and 06/07/23 tablet vomiting #10 tabs sucralfate 100 mg/mL oral 10 ml PO BID #400 mL 06/07/23 suspension Allergies Allergy/AdvReac Type Severity Reaction Status Date / Time Penicillins [PENICILLINS] Allergy Unknown DIFF Verified 06/07/23 03:09 BREATHING Review of Systems Review of Systems Yes all other systems are reviewed and are negative [facility] Past Medical History Medical History Graves disease Insomnia Social History Social History Alcohol intake: never Patient Tobacco Use Status: Never used Tobacco Smoked in Last 30 Days: No Use of substances other than those prescribed or required for medical reasons: No Advance Directives: No Advance Directives Information Provided: Yes Patient : No Physical Exam ED Vital Signs: Vital Signs - 24 hr 06/07/23 03:05 06/07/23 04:33 06/07/23 06:40 Temperature 99.9 F 97.6 F 98.3 F Pulse Rate 127 H 111 H 105 H Respiratory Rate 20 18 18 Blood Pressure 137/61 149/89 H 127/76 Pulse Oximetry 98 100 95 Oxygen Delivery Method Room Air Room Air Room Air BMI result Body Mass Index 19.3 Appearance: Alert. Oriented X3. Very anxious Eyes: PERRLA, No Nystagmus ENT: Pharynx normal. Oral Mucosa moist Neck: Normal inspection. Neck supple. CVS: Normal heart rate and rhythm. Pulses normal. Respiratory: No respiratory distress. Equal air entry bilateral, no wheezing/rales/rhonchi Abdomen: Soft , epigastric discomfort++ Bowel sounds are present, no mass palpable, no CVA tenderness Skin: Skin warm and dry. Normal skin color. Normal skin turgor. Extremities: No lower extremity edema. No calf tenderness Neuro: Oriented X 3. Medical Decision Making Medical Decision Making [facility] Narrative: Patient with difficulty/painful swallowing but able to eat and drink seems to be very anxious on arrival already on Prilosec advised to take sucralfate and and decrease the amount of food each time. Patient advised to follow with her GI patient COVID test came positive but patient asymptomatic at this time denies any cold symptoms or shortness of breath or cough Differential Diagnosis Differential Diagnoses: The differential diagnosis associated with the presentation includes Achalasia/dysphagia/gastritis/anxiety/pancreatitis Lab Data [facility] Lab Attestation statement: I reviewed the patient's lab results. 06/07/23 03:20 06/07/23 03:20 Labs: Lab Results 06/07/23 06/07/23 Range/Units 03:20 04:36 WBC 8.0 (4.8-10.8) X10*3/uL RBC 4.37 (4.20-5.50) X10*6/uL Hgb 13.3 (12.0-16.0) g/dl Hct 39.5 (37.0-47.0) % MCV 90.4 (80.0-98.0) fL MCH 30.4 (27.0-33.0) pg MCHC 33.7 (31.0-35.0) g/dl RDW 12.4 (11.0-16.0) % Plt Count 188 (160-400) X10*3/uL MPV 10.9 (9.4-12.3) fL Immature Gran % (Auto) 0.4 (0.0-0.4) % Neut % (Auto) 86.6 H (45-73) % Lymph % (Auto) 4.0 L (20-40) % [place] % (Auto) 7.4 (2-11) % Eos % (Auto) 1.0 (0-4) % Baso % (Auto) 0.6 (0-2) % Lymph # (Auto) 0.3 L (1.2-4.9) X10*3/uL [place] # (Auto) 0.6 (0.1-1.2) X10*3/uL Eos # (Auto) 0.1 (0.0-0.4) X10*3/uL Baso # (Auto) 0.1 (0.0-0.2) X10*3/uL Abs Immat Gran (auto) 0.03 (0.00-0.03) X10*3/uL Absolute Neuts (auto) 6.9 (2.0-8.3) x10*3/uL Absolute Nucleated RBC 0.000 (0.0-0.012) X10*3/uL Nucleated RBC % (auto) 0.0 (0.0-0.2) /100WBC Sodium 138 (135-145) mmol/L Potassium 3.6 (3.3-5.1) mmol/L Chloride 100 (96-108) mmol/L Carbon Dioxide 24 (22-29) mmol/L Anion Gap 18 (12-20) BUN 15 (9-16) mg/dL Creatinine 0.99 (0.5-1.4) mg/dL Estim Creat Clear Calc 44.1 Estimated GFR 57 Random Glucose 100 (60-115) mg/dL Calcium 9.2 (8.4-10.2) mg/dL Total Bilirubin 1.2 H (0.0-1.0) mg/dL Direct Bilirubin 0.3 (0.0-0.5) mg/dL AST 17 (5-31) U/L ALT 17 (0-31) U/L Alkaline Phosphatase 54 (39-117) U/L Total Protein 7.7 (6.5-8.0) g/dL Albumin 4.4 (3.5-5.0) g/dL Lipase 30 (8-78) U/L COVID-19 (YUMIKO) Positive A (Negative) COVID-19 Clin Com See Note Medications Administered Discontinued Medications Generic Name Dose Route Start Last Admin Trade Name Freq PRN Reason Stop Dose Admin Al Hydroxide/Mg Hydroxide 30 ml 06/07/23 04:55 06/07/23 05:10 Magnesium Hydrox/Alum Hydrox 30 Ml Oral.Susp PO 06/07/23 04:56 30 ml ONCE ONE Administration Famotidine 20 mg 06/07/23 04:55 06/07/23 05:06 Famotidine/Pf 20 Mg/2 Ml Vial IVPUSH 06/07/23 04:56 20 mg ONCE ONE Administration Sodium Chloride 1,000 mls @ 999 mls/hr 06/07/23 04:55 06/07/23 05:04 Ns IV 06/07/23 05:55 999 mls/hr .Q1H1M ONE Administration Lidocaine HCl 15 ml 06/07/23 04:55 06/07/23 05:10 Lidocaine Hcl Viscous 2 % 15 Ml Solution MUCOUS MEM 06/07/23 04:56 15 ml ONCE ONE Administration Lorazepam 1 mg 06/07/23 05:00 06/07/23 05:18 Lorazepam 2 Mg/Ml Vial IVPUSH 06/07/23 05:01 1 mg ONCE ONE Administration Morphine Sulfate 4 mg 06/07/23 04:55 06/07/23 05:06 Morphine Sulfate 4 Mg/Ml Cartridge IVPUSH 06/07/23 04:56 4 mg ONCE ONE Administration Protocol Ondansetron HCl 4 mg 06/07/23 04:55 06/07/23 05:06 Ondansetron Hcl 4 Mg/2 Ml Vial IVPUSH 06/07/23 04:56 4 mg ONCE ONE Administration Discharge Plan Discharge Clinical Impression: Gastritis, COVID-19, Abdominal pain, chronic, epigastric Patient Disposition: Home, Self-Care Instructions: Gastritis (ED), Epigastric Pain (ED), COVID-19 (Coronavirus Disease 2019) (ED) Additional Instructions: Drink plenty of fluids Avoid caffeinated/fried food Continue Prilosec take Sucralfate liquid half an hour before meals Pain medication as prescribed Follow up with GI Prescriptions: New ondansetron 4 mg tablet,disintegrating 4 mg PO Q6-8H PRN (Reason: nausea and vomiting) Qty: 10 0RF morphine 15 mg tablet 15 mg PO Q8H PRN (Reason: pain) Qty: 10 0RF Rx Instructions: Partial Fill upon patient request. sucralfate 100 mg/mL suspension 10 ml PO BID Qty: 400 0RF No Action pantoprazole [Protonix] 40 mg tablet,delayed release (DR/EC) 40 mg PO DAILY Qty: 30 0RF ondansetron HCl [Zofran] 4 mg tablet 4 mg PO Q8H PRN (Reason: nausea and vomiting) Qty: 10 0RF ondansetron 4 mg tablet,disintegrating 4 mg PO TID PRN (Reason: nausea and vomiting) 5 Days 0RF ondansetron 4 mg tablet,disintegrating 4 mg PO Q6H PRN (Reason: nausea and vomiting) Qty: 14 0RF
[2023-06-07 04:48] LABS: COVID-19 Test Positive (Negative); IDNOW Serial# 152EDE1D
[2023-06-07] MEDS: 0.9 % Sodium Chloride 1,000 ML 999 ML IV (05:04)
[2023-06-07] MEDS: Morphine Sulfate 4 MG/ML CARTRIDGE IVPUSH (05:06)
[2023-06-07] MEDS: ondansetron HCL 4 MG/2 ML VIAL IVPUSH (05:06)
[2023-06-07] MEDS: Famotidine/PF 20 MG/2 ML VIAL IVPUSH (05:06)
[2023-06-07] MEDS: Lidocaine HCl Viscous 2 % 15 ML SOLUTION MUCOUS MEM (05:10)
[2023-06-07] MEDS: Magnesium Hydrox/Alum Hydrox 30 ML ORAL.SUSP PO (05:10)
[2023-06-07] MEDS: LORazepam 2 MG/ML VIAL 1 MG IVPUSH (05:18)
[2023-06-07 06:40] VITALS: BP 127/76; PULSE 105; RESP 18; TEMP 36.8; O2SAT 95
[2023-06-07 07:11] VITALS: BP 124/75; PULSE 119; RESP 14; TEMP 37; O2SAT 99
== END 2023-06-07 07:12 | disposition home or self-care (01) ==
PROVIDERS: Emergency Provider Internal Medicine; PCP Family Medicine
DX: U07.1 COVID-19 (principal); K29.60 Other gastritis without bleeding; G89.29 Other chronic pain; R10.13 Epigastric pain; Z79.899 Other long term (current) drug therapy
CPT/HCPCS: 36415; 80048; 80076; 83690; 85025; 87635; 93005; 96374; 96375; 99284; 99285; J2060; J2270; J2405

== ENCOUNTER → 2023-06-07 03:58 | Outpatient (BNV) | payer OTHER, SELFPAY | PROVIDERS: Emergency Provider Internal Medicine; PCP Family Medicine; Visit Provider Internal Medicine Cardiovascular Disease | DX: R00.0 Tachycardia, unspecified (principal); R94.31 Abnormal electrocardiogram [ECG] [EKG] | CPT/HCPCS: 93010 ==

== ENCOUNTER 2023-06-09 06:41 | Observation (INO) | payer OTHER, SELFPAY ==
[2023-06-09] VITALS (7 sets, daily range): BP systolic 126–148; BP diastolic 74–88; PULSE 62–92; RESP 17–20; TEMP 36.6–37.2; O2SAT 94–98; BMI 19.6; BMI 19.4
--- NOTE | ~2023-06-09 | XR_ITS ---
EXAMINATION: XR CHEST CLINICAL INFORMATION: Chest pain. COMPARISON: Chest x-ray dated 04/29/2014. TECHNIQUE: AP upright portable view of the chest was obtained. FINDINGS: EKG leads overlie the chest. The cardiomediastinal silhouette is within normal limits in size. Lungs bilaterally are symmetrically hyperinflated. There is a round nodular density seen projected over the right lateral lower chest, consistent with a prominent nipple shadow. Similar less prominent nodular density in the left lung base is seen, also consistent with a nipple shadow. No focal consolidation, effusion or pneumothorax is seen. Mild multilevel vertebral spondylosis in the mid and lower thoracic spine. XR/XR chest 1V IMPRESSION: * Hyperinflated lungs, suggesting underlying obstructive lung disease. Clinical correlation requested. * No focal acute pulmonary process. * Prominent nipple shadows are seen in the lower lungs bilaterally.
--- NOTE | ~2023-06-09 | CT_ITS ---
EXAMINATION: CT ABDOMEN AND PELVIS WITH CONTRAST CLINICAL INFORMATION: Abdominal pain. Epigastric pain. COMPARISON: The scan of the abdomen and pelvis dated 04/30/2022 and 02/07/2021. TECHNIQUE: Multidetector CT volumetric acquisition of the abdomen and pelvis was performed after the administration of 85 mL of intravenous Omnipaque 350. The data set was reformatted in the sagittal and coronal planes and reviewed on an independent workstation. This CT examination was performed using dose optimization techniques as appropriate, variously including the following: *Automated exposure control *Adjustment of mA and/or kV according to patient size (this includes techniques or standardized protocols for targeted exams where dose is matched to indication/reason for exam; i.e. extremities or head) *Use of iterative reconstruction technique DLP: 189.8 mGy-cm. FINDINGS: LOWER CHEST: Minimal dependent atelectasis in the lung bases bilaterally. LIVER, GALLBLADDER, BILIARY TREE: Liver normal size and attenuation. No focal cystic or solid mass or intra-or extrahepatic ductal dilatation. Hepatic and portal veins patent. Gallbladder partially distended and within normal limits. PANCREAS: Normal. No ductal dilatation, mass, or surrounding stranding. SPLEEN: Normal size and appearance. Splenic vein patent. ADRENAL GLANDS: Adrenal glands normal. KIDNEYS, URETERS AND BLADDER: There is moderate bilateral ureteral nephrosis seen with dilatation of the ureters down to the markedly distended urinary bladder, which extends into the lower abdomen to about 5 cm below the level of the umbilicus. The bladder measures approximately 14.8 x 9.6 x 11.5 cm (1101 mL). No renal, ureteral or bladder calculi seen.. There is a tiny 0.3 cm diameter low-attenuation mass in the lower pole of the left kidney (series 7, image 30), unchanged from the prior exam, too small to characterize, but most likely a tiny cyst. No specific imaging follow-up is warranted. PELVIC ORGANS: Uterus and ovaries unremarkable. Trace physiologic free fluid in the cul-de-sac.. GASTROINTESTINAL TRACT: A few scattered colonic diverticula are again seen. Small and large bowel loops decompressed and otherwise unremarkable. Appendix not seen. No focal inflammatory process in the right lower quadrant. LYMPHOVASCULAR STRUCTURES: Abdominal aorta normal in caliber. No periaortic collections. No abdominal or pelvic adenopathy or free fluid collection. BONES: Minimal vertebral spondylosis throughout the lower thoracic and the lumbar spine. CT/CT abdomen pelvis w IV con IMPRESSION: * Markedly distended urinary bladder is seen with associated moderate bilateral hydroureteronephrosis. Findings are likely related to back pressure from the markedly distended urinary bladder and possible vesicoureteral reflux. If the patient is unable to void, consider straight catheter for urinary decompression. * No evidence of nephrolithiasis or obstructive uropathy. * Tiny 0.3 cm low-attenuation mass in the lower pole of left kidney, too small to characterize, but most likely a tiny cyst. Per the ACR incidental findings guidelines, no specific imaging follow-up is warranted. * Mild colonic diverticulosis.
--- NOTE | 2023-06-09 06:53 | ECG_ITS ---
Test Reason : ABD PAIN Blood Pressure : / mmHG Vent. Rate : 086 BPM Atrial Rate : 086 BPM P-R Int : 152 ms QRS Dur : 070 ms QT Int : 366 ms P-R-T Axes : 080 064 067 degrees QTc Int : 437 ms Normal sinus rhythm Normal ECG When compared with ECG of 07-JUN-2023 03:58, Nonspecific T wave abnormality no longer evident in Lateral leads Referred By: Generic ED Physician Electronically Signed By:Adama Kimbrough
--- NOTE | 2023-06-09 07:37 | PC.NURSE ---
Pt awake, alert and oriented. Breathing even and unlabored, skin warm, dry and slightly pale. Pt reports she is COVID+ was seen here approx a week ago. Pt reports symptoms of abdominal pain, nausea/vomiting, and chest pain since Saturday. Pt reports chest pain is a heavy pressure across her chest. Pt reports poor PO intake, overall not feeling well.
[2023-06-09 07:59] LABS: MANUAL DIFF FLAG NO
[2023-06-09 08:03] LABS: Basophils Percent Auto 0.4 % (0-2); Eosinophils Percent Auto 0.2 % (0-4); Hemoglobin 14.1 g/dl (12.0-16.0); Imm Gran Abs Auto 0.02 X10*3/uL (0.00-0.03); Imm Gran Pct Auto 0.4 % (0.0-0.4); Lymphocytes Absolute Auto 0.8 X10*3/uL (1.2-4.9); Lymphocytes Percent Auto 14.2 % (20-40); Mean Corpuscular HGB Conc 33.6 g/dl (31.0-35.0); Mean Corpuscular Hemoglobin 29.7 pg (27.0-33.0); Mean Corpuscular Volume 88.6 fL (80.0-98.0); Mean Platelet Volume 11.2 fL (9.4-12.3); Monocytes Absolute Auto 0.7 X10*3/uL (0.1-1.2); Monocytes Percent Auto 13.9 % (2-11); Neutrophils Absolute Auto 3.8 x10*3/uL (2.0-8.3); Neutrophils Percent Auto 70.9 % (45-73); Platelet Count 164 X10*3/uL (160-400); Red Blood Count 4.74 X10*6/uL (4.20-5.50); Red Cell Distribution Width 12.2 % (11.0-16.0); White Blood Count 5.3 X10*3/uL (4.8-10.8)
[2023-06-09] MEDS: 0.9 % Sodium Chloride 1,000 ML 999 ML IV (08:06)
[2023-06-09 08:29] LABS: Troponin-I High Sensitivity < 2.7 ng/L (<3.5-17.0)
[2023-06-09 08:31] LABS: Alanine Aminotransferase 19 U/L (0-31); Alkaline Phosphatase 47 U/L (39-117); Anion Gap 17 (12-20); Aspartate Amino Transferase 33 U/L (5-31); Bilirubin Total 0.7 mg/dL (0.0-1.0); Blood Urea Nitrogen 7 mg/dL (9-16); Calcium 9.1 mg/dL (8.4-10.2); Carbon Dioxide 19 mmol/L (22-29); Chloride 98 mmol/L (96-108); Creatinine Clr Calc Pharmacy 54.3; Estimated Glomerular Filt Rate > 60; Glucose Random 95 mg/dL (60-115); Potassium 4.9 mmol/L (3.3-5.1); Sodium 129 mmol/L (135-145); Total Protein 8.2 g/dL (6.5-8.0)
--- NOTE | 2023-06-09 08:34 | ED_ITS ---
HPI - General Adult General Chief complaint: General Medical Stated complaint: COVID + on Sat, returning Time Seen by Provider: 06/09/23 07:18 Source: patient, family and RN notes reviewed Mode of arrival: ambulatory Limitations: no limitations History of Present Illness HPI narrative: This is a 58-year-old female, with a history of Schatzki ring and graves disease, presenting to the emergency department with multiple complaints. Patient endorses headache, body aches, chest pain, shortness of breath, abdominal pain, nausea and vomiting. She was diagnosed with COVID-19 on Saturday. She states that she has been unable to eat or drink anything as she ends up vomiting this back up 1 hour later. She was seen 2 days ago and was diagnosed with gastritis, discharged on Zofran, morphine, and sucralfate which she took which provided her without any relief. She states that she developed chest pain yesterday. Chest pain comes and goes, lasts for about 1 minute, after coughing or vomiting, and resolves on its own. Patient reports over the last several months she has been losing weight, states that her family has a past medical history of stomach cancer. She currently has a GI specialist who has been monitoring her however they are not responding to her phone calls. MD complaint: Chest pain, epigastric pain Onset (ago): day(s) Quality: sharp Pain Consistency: constant Relieving factors: none Exacerbating factors: none Associated symptoms: denies other symptoms Treatments prior to arrival: none Related Data Home Medications Medication Instructions Recorded Confirmed acetaminophen 500 mg tablet 1,000 mg PO DAILY PRN Pain 06/09/23 06/09/23 cyclobenzaprine 10 mg tablet 10 mg PO DAILY PRN muscle spasm 06/09/23 06/09/23 eszopiclone 3 mg tablet 3 mg PO BEDTIME 06/09/23 06/09/23 levothyroxine 100 mcg tablet 100 mcg PO SUTUWETHFRSA 06/09/23 06/09/23 (Levoxyl) Previous Rx's Medication Instructions Recorded pantoprazole 40 mg tablet,delayed 40 mg PO DAILY #30 tabs 02/07/21 release (Protonix) ondansetron 4 mg disintegrating 4 mg PO Q6H PRN nausea and 04/30/22 tablet vomiting #14 tabs morphine 15 mg immediate release 15 mg PO Q8H PRN pain #10 tabs 06/07/23 tablet sucralfate 100 mg/mL oral 10 ml PO BID #400 mL 06/07/23 suspension Allergies Allergy/AdvReac Type Severity Reaction Status Date / Time Penicillins [PENICILLINS] Allergy Unknown DIFF Verified 06/09/23 06:48 BREATHING Review of Systems 2 Review of Systems: Yes all other systems are reviewed and are negative Constitutional: Constitutional: Reports as per [facility] Past Medical History Attestation statement: The following information was validated with the patient. Medical History Schatzki's ring of distal esophagus IBS (irritable bowel syndrome) Alcohol use disorder Insomnia Graves disease Social History Social History Alcohol intake: never Patient Tobacco Use Status: Never used Tobacco Smoked in Last 30 Days: No Use of substances other than those prescribed or required for medical reasons: No Advance Directives: No Physical Exam ED Vital Signs: Vital Signs - 24 hr 06/09/23 06:48 06/09/23 07:05 06/09/23 08:37 Temperature 98.4 F 98.1 F Pulse Rate 91 90 Respiratory Rate 20 18 17 Blood Pressure 126/75 142/80 H Pulse Oximetry 98 97 Oxygen Delivery Method Room Air Room Air 06/09/23 09:01 06/09/23 11:32 06/09/23 14:08 Temperature 98.3 F 98.7 F 99 F Pulse Rate 87 92 92 Respiratory Rate 17 18 18 Blood Pressure 145/88 H 129/74 140/86 H Pulse Oximetry 97 95 96 Oxygen Delivery Method Room Air Room Air Room Air BMI result Body Mass Index 19.6 Const General: cooperative, comfortable and no acute distress Orientation/consciousness: patient oriented x3 Limitations: no limitations HENMT Head: Yes normal to inspection, Yes normocephalic and Yes atraumatic Ears: hearing grossly normal bilaterally General nose exam: Normal external nose present Face and sinus: Yes normal facial exam Mouth: Normal oral and palatal mucosa present, oropharynx normal and moist mucous membranes Throat: Yes posterior oropharynx normal Eyes General: appearance normal, both eyes and all related structures Eyelids: Yes eyelids normal Conjunctivae: conjunctivae normal Sclerae: sclerae normal Pupils: Equal, round and reactive pupils present EOM: EOMs intact bilaterally Neck Neck: Yes normal visual inspection, Yes full ROM and Yes no lymphadenopathy Lymphatic: no lymphadenopathy noted Chest Chest palpation & inspection: normal inspection of the chest Resp Effort & Inspection: normal respiratory effort and able to speak in complete sentences Auscultation: clear to auscultation bilaterally, no crackles, no rales, no rhonchi and no wheezes Cardio Rate: regular rate Rhythm: regular rhythm Heart sounds: S1 normal heart sound present and S2 normal heart sound present GI Other: Abdomen is soft, with exquisite tenderness in the epigastrium with guarding, no right upper quadrant pain. Diffuse abdominal pain throughout. Inspection: Yes normal to inspection Skin General skin exam: no rashes or lesions noted Trauma: no lacerations or abrasions Wounds: no wounds Neuro General: patient oriented x3 and moves all extremities Cranial nerves: Yes Equal, round and reactive pupils present Extrem General: Yes normal to inspection Right upper extremity: normal to inspection Left upper extremity: normal to inspection Right lower extremity: normal to inspection Left lower extremity: normal to inspection Course Reevaluation(s) Reevaluation #1: Chest Pain improved after receiving morphine, still feeling nauseous and having epigastric pain. CT abdomen and pelvis revealing markedly distended urinary bladder with associated moderate bilateral hydroureter nephrosis. I discussed with patient she states that she had to urinate prior to the CT scan which she did not do. Bedside postvoid residual ultrasound revealing greater than 500 cc of urine located in the bladder. She states that she does not feel as though she needs to be. She is requesting more water, she states that she is very thirsty. Attempted to use the restroom, was able to urinate, residual urine to 40 within the bladder. She states that she had a push hard in order to do so. Given hyponatremia with a sodium of 129 as well as intractable nausea and vomiting, will admit to hospitalist for further evaluation and assessment. TSH ordered Time: 11:49 Reevaluation #2: Second troponin negative, message sent to hospitalist for further care. Patient reporting her chest pain has improved, still complaining of some epigastric pain however has improved since arrival. She is agreeable for hospital admission for further workup regarding hyponatremia. She is requesting ice chips, which I am holding off on given hyponatremia. Time: 12:22 Medications Administered Generic Name Dose Route Start Last Admin Trade Name Freq PRN Reason Stop Dose Admin Enoxaparin Sodium 40 mg 06/09/23 16:00 06/09/23 16:57 Enoxaparin Sodium 40 Mg/0.4 Ml Syringe SUBCUT 40 mg Q24H DANIELITO Administration Sodium Chloride 1,000 mls @ 100 mls/hr 06/09/23 17:00 06/09/23 18:26 Ns IVCONT 06/10/23 02:59 100 mls/hr .Q10H DANIELITO Administration Sodium Chloride 3 ml 06/09/23 16:00 06/09/23 16:59 0.9 % Sodium Chloride Flush 3 Ml Syringe IVFLUSH 3 ml QSHIFT DANIELITO Administration Discontinued Medications Generic Name Dose Route Start Last Admin Trade Name Frantz PRN Reason Stop Dose Admin Acetaminophen/Butalbital/Caffeine 1 tab 06/09/23 15:52 06/09/23 17:06 Butalb/Acetamin/Caff 50/325/40 Tablet PO 06/09/23 15:53 1 tab ONCE ONE Administration Sodium Chloride 1,000 mls @ 999 mls/hr 06/09/23 08:01 06/09/23 10:26 Ns IV 06/09/23 09:01 Infused .Q1H1M ONE Infusion Iohexol 100 ml 06/09/23 09:25 06/09/23 09:28 Iohexol 350 Mg/Ml 100 Ml Infus..Btl IV 06/09/23 09:26 85 ml ONCE ONE Administration Lorazepam 1 mg 06/09/23 08:52 06/09/23 09:00 Lorazepam 1 Mg Tablet PO 06/09/23 08:53 1 mg ONCE ONE Administration Morphine Sulfate 4 mg 06/09/23 08:32 06/09/23 08:37 Morphine Sulfate 4 Mg/Ml Cartridge IVPUSH 06/09/23 08:33 4 mg ONCE ONE Administration Protocol Ondansetron HCl 4 mg 06/09/23 08:32 06/09/23 08:37 Ondansetron Hcl 4 Mg/2 Ml Vial IVPUSH 06/09/23 08:33 4 mg ONCE ONE Administration Prochlorperazine Edisylate 5 mg 06/09/23 15:45 06/09/23 16:59 Prochlorperazine Edisylate 10 Mg/2 Ml Vial IVPUSH 06/09/23 15:46 5 mg ONCE ONE Administration Medical Decision Making Medical Decision Making [facility] Narrative: This is a 58-year-old female, with a history of Schatzki ring, presenting to the emergency department with multiple complaints. On arrival, vital signs within normal limits. Patient tested positive for COVID 2 days ago. She states that she has been unable to tolerate oral medication or food or drink without vomiting. She has exquisite tenderness in the epigastrium, no right upper quadrant pain with associated diffuse abdominal pain throughout. She also endorses chest pain and shortness breath. Lungs are clear to auscultation bilaterally. VSS. She is nontoxic appearing and under no acute distress. Plan: Labs, rib xray, shoulder xray ordered. Differential Diagnosis Differential Diagnoses: The differential diagnosis associated with the presentation includes ACS, COVID, Pneumonia, Gastritis, electrolyte abnormality, psychogenic polydipsia, SIADH Admission/Observation Consideration of admission/observation: Escalation of care including admission/observation considered Consult Healthcare Provider Management of the patient was discussed with: Hospitalist Lab Data [facility] Lab Attestation statement: I reviewed the patient's lab results. No leukocytosis, stable H&H, Hyponatremic at 129, liver transaminases WNL. TSH normal. Urine noninfected.troponin x 2 negative. 06/09/23 07:56 06/09/23 07:56 Labs: Lab Results 06/09/23 06/09/23 06/09/23 Range/Units 07:56 09:59 11:41 WBC 5.3 (4.8-10.8) X10*3/uL RBC 4.74 (4.20-5.50) X10*6/uL Hgb 14.1 (12.0-16.0) g/dl Hct 42.0 (37.0-47.0) % MCV 88.6 (80.0-98.0) fL MCH 29.7 (27.0-33.0) pg MCHC 33.6 (31.0-35.0) g/dl RDW 12.2 (11.0-16.0) % Plt Count 164 (160-400) X10*3/uL MPV 11.2 (9.4-12.3) fL Immature Gran % (Auto) 0.4 (0.0-0.4) % Neut % (Auto) 70.9 (45-73) % Lymph % (Auto) 14.2 L (20-40) % Bartholomew % (Auto) 13.9 H (2-11) % Eos % (Auto) 0.2 (0-4) % Baso % (Auto) 0.4 (0-2) % Lymph # (Auto) 0.8 L (1.2-4.9) X10*3/uL Bartholomew # (Auto) 0.7 (0.1-1.2) X10*3/uL Eos # (Auto) 0.0 (0.0-0.4) X10*3/uL Baso # (Auto) 0.0 (0.0-0.2) X10*3/uL Abs Immat Gran (auto) 0.02 (0.00-0.03) X10*3/uL Absolute Neuts (auto) 3.8 (2.0-8.3) x10*3/uL Absolute Nucleated RBC 0.000 (0.0-0.012) X10*3/uL Nucleated RBC % (auto) 0.0 (0.0-0.2) /100WBC Sodium 129 L (135-145) mmol/L Potassium 4.9 D (3.3-5.1) mmol/L Chloride 98 (96-108) mmol/L Carbon Dioxide 19 L (22-29) mmol/L Anion Gap 17 (12-20) BUN 7 L (9-16) mg/dL Creatinine 0.82 (0.5-1.4) mg/dL Estim Creat Clear Calc 54.3 Estimated GFR > 60 Random Glucose 95 (60-115) mg/dL Calcium 9.1 (8.4-10.2) mg/dL Total Bilirubin 0.7 (0.0-1.0) mg/dL AST 33 H (5-31) U/L ALT 19 (0-31) U/L Alkaline Phosphatase 47 (39-117) U/L Lactate Dehydrogenase Cancelled Troponin I High Sens < 2.7 < 2.7 (<3.5-17.0) ng/L C-Reactive Protein Cancelled Total Protein 8.2 H (6.5-8.0) g/dL Albumin 4.0 (3.5-5.0) g/dL Lipase 35 (8-78) U/L TSH 0.48 (0.32-4.0) uIU/mL Urine Color Yellow Urine Appearance Clear Urine pH 8.0 (5.0-9.0) Ur Specific [place] 1.015 (1.005-1.025) Urine Protein Negative (Neg-Trace) mg/dL Urine Glucose (UA) Negative (Negative) mg/dL Urine Ketones Trace (Negative) mg/dL Urine Blood Negative (Negative) Urine Nitrite Negative (Negative) Ur Leukocyte Esterase Negative (Negative) Urine Osmolality 239 L (373-1093) mosm/kg Ur Random Sodium mmol/L Urine Creatinine mg/dL 06/09/23 06/09/23 Range/Units 12:19 14:36 WBC (4.8-10.8) X10*3/uL RBC (4.20-5.50) X10*6/uL Hgb (12.0-16.0) g/dl Hct (37.0-47.0) % MCV (80.0-98.0) fL MCH (27.0-33.0) pg MCHC (31.0-35.0) g/dl RDW (11.0-16.0) % Plt Count (160-400) X10*3/uL MPV (9.4-12.3) fL Immature Gran % (Auto) (0.0-0.4) % Neut % (Auto) (45-73) % Lymph % (Auto) (20-40) % Bartholomew % (Auto) (2-11) % Eos % (Auto) (0-4) % Baso % (Auto) (0-2) % Lymph # (Auto) (1.2-4.9) X10*3/uL Bartholomew # (Auto) (0.1-1.2) X10*3/uL Eos # (Auto) (0.0-0.4) X10*3/uL Baso # (Auto) (0.0-0.2) X10*3/uL Abs Immat Gran (auto) (0.00-0.03) X10*3/uL Absolute Neuts (auto) (2.0-8.3) x10*3/uL Absolute Nucleated RBC (0.0-0.012) X10*3/uL Nucleated RBC % (auto) (0.0-0.2) /100WBC Sodium (135-145) mmol/L Potassium (3.3-5.1) mmol/L Chloride (96-108) mmol/L Carbon Dioxide (22-29) mmol/L Anion Gap (12-20) BUN (9-16) mg/dL Creatinine (0.5-1.4) mg/dL Estim Creat Clear Calc Estimated GFR Random Glucose (60-115) mg/dL Calcium (8.4-10.2) mg/dL Total Bilirubin (0.0-1.0) mg/dL AST (5-31) U/L ALT (0-31) U/L Alkaline Phosphatase (39-117) U/L Lactate Dehydrogenase 163 Troponin I High Sens (<3.5-17.0) ng/L C-Reactive Protein 1.98 H Total Protein (6.5-8.0) g/dL Albumin (3.5-5.0) g/dL Lipase (8-78) U/L TSH (0.32-4.0) uIU/mL Urine Color Urine Appearance Urine pH (5.0-9.0) Ur Specific [place] (1.005-1.025) Urine Protein (Neg-Trace) mg/dL Urine Glucose (UA) (Negative) mg/dL Urine Ketones (Negative) mg/dL Urine Blood (Negative) Urine Nitrite (Negative) Ur Leukocyte Esterase (Negative) Urine Osmolality (373-1093) mosm/kg Ur Random Sodium 97.0 mmol/L Urine Creatinine 26.28 mg/dL Independent Interpretation I performed an independent interpretation of an: EKG and CT Scan Interpretation: EKG normal sinus rhythm at a ventricular rate of 86 beats per minute, HI interval 152, QTC 437, no ST elevation or depression. I reviewed the CT abdomen and agree with radiology report Radiology Impression Discussion of test interpretation with radiology: I have reviewed the radiologist's reading. Radiologist Impression: EXAMINATION: CT ABDOMEN AND PELVIS WITH CONTRAST CLINICAL INFORMATION: Abdominal pain. Epigastric pain. COMPARISON: The scan of the abdomen and pelvis dated 04/30/2022 and 02/07/2021. TECHNIQUE: Multidetector CT volumetric acquisition of the abdomen and pelvis was performed after the administration of 85 mL of intravenous Omnipaque 350. The data set was reformatted in the sagittal and coronal planes and reviewed on an independent workstation. This CT examination was performed using dose optimization techniques as appropriate, variously including the following: *Automated exposure control *Adjustment of mA and/or kV according to patient size (this includes techniques or standardized protocols for targeted exams where dose is matched to indication/reason for exam; i.e. extremities or head) *Use of iterative reconstruction technique DLP: 189.8 mGy-cm. FINDINGS: LOWER CHEST: Minimal dependent atelectasis in the lung bases bilaterally. LIVER, GALLBLADDER, BILIARY TREE: Liver normal size and attenuation. No focal cystic or solid mass or intra-or extrahepatic ductal dilatation. Hepatic and portal veins patent. Gallbladder partially distended and within normal limits. PANCREAS: Normal. No ductal dilatation, mass, or surrounding stranding. SPLEEN: Normal size and appearance. Splenic vein patent. ADRENAL GLANDS: Adrenal glands normal. KIDNEYS, URETERS AND BLADDER: There is moderate bilateral ureteral nephrosis seen with dilatation of the ureters down to the markedly distended urinary bladder, which extends into the lower abdomen to about 5 cm below the level of the umbilicus. The bladder measures approximately 14.8 x 9.6 x 11.5 cm (1101 mL). No renal, ureteral or bladder calculi seen.. There is a tiny 0.3 cm diameter low-attenuation mass in the lower pole of the left kidney (series 7, image 30), unchanged from the prior exam, too small to characterize, but most likely a tiny cyst. No specific imaging follow-up is warranted. PELVIC ORGANS: Uterus and ovaries unremarkable. Trace physiologic free fluid in the cul-de-sac.. GASTROINTESTINAL TRACT: A few scattered colonic diverticula are again seen. Small and large bowel loops decompressed and otherwise unremarkable. Appendix not seen. No focal inflammatory process in the right lower quadrant. LYMPHOVASCULAR STRUCTURES: Abdominal aorta normal in caliber. No periaortic collections. No abdominal or pelvic adenopathy or free fluid collection. BONES: Minimal vertebral spondylosis throughout the lower thoracic and the lumbar spine. CT/CT abdomen pelvis w IV con IMPRESSION: * Markedly distended urinary bladder is seen with associated moderate bilateral hydroureteronephrosis. Findings are likely related to back pressure from the markedly distended urinary bladder and possible vesicoureteral reflux. If the patient is unable to void, consider straight catheter for urinary decompression. * No evidence of nephrolithiasis or obstructive uropathy. * Tiny 0.3 cm low-attenuation mass in the lower pole of left kidney, too small to characterize, but most likely a tiny cyst. Per the ACR incidental findings guidelines, no specific imaging follow-up is warranted. * Mild colonic diverticulosis. Dictated By: Lili Elam MD EXAMINATION: XR CHEST CLINICAL INFORMATION: Chest pain. COMPARISON: Chest x-ray dated 04/29/2014. TECHNIQUE: AP upright portable view of the chest was obtained. FINDINGS: EKG leads overlie the chest. The cardiomediastinal silhouette is within normal limits in size. Lungs bilaterally are symmetrically hyperinflated. There is a round nodular density seen projected over the right lateral lower chest, consistent with a prominent nipple shadow. Similar less prominent nodular density in the left lung base is seen, also consistent with a nipple shadow. No focal consolidation, effusion or pneumothorax is seen. Mild multilevel vertebral spondylosis in the mid and lower thoracic spine. XR/XR chest 1V IMPRESSION: * Hyperinflated lungs, suggesting underlying obstructive lung disease. Clinical correlation requested. * No focal acute pulmonary process. * Prominent nipple shadows are seen in the lower lungs bilaterally. Dictated By: Lili Elam MD Independent Historian Clinical information obtained from an independent historian. History obtained from or confirmed by: Spouse Tests considered The following testing was considered but not selected: Abdominal US, however given no RUQ pain and normal LFTs, gall bladder etiology less likely Prescription Management I considered prescription management with: Pain Medication Critical Care Time Critical Care Time Critical Care Time: Yes Total Critical Care Time: 35 Attestation: I have personally provided critical care time exclusive of time spent on separately billable procedures. Time includes review of lab data, radiology results, discussion with consultants, and monitoring for potential decompensation. Intervention performed as documented. Discharge Plan Discharge Clinical Impression: Acute hyponatremia, COVID-19 Patient Disposition: Admitted As Inpatient Interventions: Admission Worksheet (ED) Last Done: 06/09/23 17:58 Discharge Date/Time: 06/09/23 18:38
[2023-06-09] MEDS: Morphine Sulfate 4 MG/ML CARTRIDGE IVPUSH (08:37)
[2023-06-09] MEDS: ondansetron HCL 4 MG/2 ML VIAL IVPUSH (08:37)
[2023-06-09] MEDS: LORazepam 1 MG TABLET PO (09:00)
--- NOTE | 2023-06-09 09:03 | PC.NURSE ---
Pt reports slight improvement in chest and abdominal pain to 8/10. Pt reports brief period of itching in her left arm, since resolved. No rash noted to arms, chest or abdomen. Pt reports new sharp pain in left side of head.
--- NOTE | 2023-06-09 09:05 | PC.NURSE ---
Pt taken to CT scan.
[2023-06-09 09:20] LABS: Lipase 35 U/L (8-78)
[2023-06-09] MEDS: iohexoL 350 MG/ML 100 ML INFUS..BTL IV (09:28)
[2023-06-09 10:07] LABS: Appearance Urine Clear; Color Urine Yellow; Glucose Urine UA Negative (Negative); Leukocyte Esterase Urine Negative (Negative); Nitrite Urine Negative (Negative); Specific Gravity - Urine 1.015 (1.005-1.025); Urine Blood Negative (Negative); Urine Ketones Trace mg/dL (Negative); Urine Protein Negative (Neg-Trace)
--- NOTE | 2023-06-09 11:41 | PC.NURSE ---
Pt bladder scanned per provider order, 525 mL. Provider aware. Pt reports feeling dry and dehydrated , no new pain.
--- NOTE | 2023-06-09 12:00 | PC.NURSE ---
Pt attempted to urinate, measured via urine hat with 200 mL voided clear yellow urine. Pt reports hard to urinate with some pain. Post bladder scan noted to be 240 mL. Provider aware.
[2023-06-09 12:18] LABS: Troponin-I High Sensitivity < 2.7 ng/L (<3.5-17.0)
[2023-06-09 12:41] LABS: Creatinine Urine 26.28 mg/dL
[2023-06-09 13:03] LABS: TSH reflex Free T4 0.48 uIU/mL (0.32-4.0)
--- NOTE | 2023-06-09 14:48 | PHA.MEDREC ---
Pharmacy Consult ? Medication Reconciliation Pharmacy has completed the medication reconciliation.
--- NOTE | 2023-06-09 14:50 | PC.NURSE ---
LDS and CRP redrawn. spoke with hospitalist Marifer re: pt diet via [employer], pt is to have regular diet order. provided with chiqui and brian esteves pt request
[2023-06-09 15:11] LABS: C Reactive Protein 1.98 mg/dL (< or = 0.50); Lactate Dehydrogenase 163 U/L (122-220)
--- NOTE | 2023-06-09 15:16 | P.HPHOSP_ITS ---
<Statement entered by Kin Caicedo MD - 06/10/23 14:08> the patient was seen and evaluated with JASON Kelly. I agree with his note, assessment and plan with the following. 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 she reports intractable nausea and vomiting. Hyponatremia 2/2 Covid19 infection secondary to GI losses and poor p.o. intake IVF maintenance Follow BNP use symptomatic treatment no indication for remdesivir or dexamethasone Rest of evaluations by PA note. History of Present Illness Date of Service: 06/09/23 Attending physician on admission: iKn Caicedo Chief Complaint: Abd pain, N/V, CP, GONZALEZ Pt is a 58-year-old female with a PMH significant for?Schatzki ring, Graves disease, IBS, and remote hx alcohol use disorder sober for 35 years who presents to the ED for the second time 3 days with?multiple complaints. Pt initially presented to ED on 06/07/2023 with nausea, vomiting, and abdominal pain. Was diagnosed with gastritis and also found to be positive with COVID. Patient was discharged on Zofran, morphine, and sucralfate. Patient presents again today stating medications did not provide any relief, and she has continued nausea, vomiting, and abdominal pain, as well as headache, body ache, chest tightness, and shortness on breath, and cough. Reports since discharge has not been able to keep anything down, saying she vomits 1 hour after eating or drinking anything. Patient also complains of losing weight over the past 3-4 months, and reports family hx of stomach cancer (father and uncle). Is followed by GI and diagnosed with IBS. Has been keeping a food diary and a food map, though expresses frustration with her GI provider and their lack of support and input. Pt wishes to be established with GI here at the hospital. In the ED pt was tachycardic up to 92 and mildly hypertensive up to 145/88, satting at 96% on RA. Labs were significant for sodium 129, CRP mildly elevated at 1.98, otherwise grossly unremarkable. No leukocytosis. Stable H&H. Serial troponins negative. TSH WNL at 0.48. Renal and hepatic function seemingly at baseline. CXR showed no focal acute pulmonary process. CT?of abdomen and pelvis found distended urinary bladder with moderate bilateral hydroureteronephrosis, and tiny 0.3 cm low-attenuation mass of left kidney that is most likely a tiny cyst. No specific imaging follow-up is warranted for this. Also found no evidence of nephrolithiasis or obstructive uropathy. EKG demonstrated normal sinus rhythm with T-wave inversions in V1 and V2 but no evidence of ST elevations or depressions. Pt was treated with IVF, morphine sulfate, ondansetron, and lorazepam. Pt will be admitted to the hospital for treatment and further evaluation of hyponatremia and intractable nausea and vomiting. Review of Systems 2 Review of Systems: Nausea, vomiting, abdominal pain Shortness of breath, cough Headache Chest tightness Myalgias [facility] Medical History (Updated 06/09/23 @ 16:42 by JASON Kelly) Schatzki's ring of distal esophagus IBS (irritable bowel syndrome) Alcohol use disorder Insomnia Graves disease Social History Alcohol intake: never Patient Tobacco Use Status: Never used Tobacco Smoked in Last 30 Days: No Use of substances other than those prescribed or required for medical reasons: No Advance Directives: No Meds Allergies Allergy/AdvReac Type Severity Reaction Status Date / Time Penicillins [PENICILLINS] Allergy Unknown DIFF Verified 06/09/23 06:48 BREATHING Active Medications: Current Medications Cyclobenzaprine HCl (Cyclobenzaprine Hcl 10 Mg Tablet) 10 mg PO DAILY PRN PRN Reason: muscle spasm Levothyroxine Sodium (Levothyroxine Sodium 100 Mcg Tablet) 100 mcg PO SuTuWeThFrSa@0600 [facility] Non-Formulary Medication (Eszopiclone) 3 mg PO BEDTIME [facility] Omeprazole (Omeprazole 20 Mg Capsule.) 20 mg PO DAILY@0630 [facility] Home Medications Medication Instructions Recorded Confirmed Last Taken Type acetaminophen 500 mg tablet 1,000 mg PO DAILY PRN Pain 06/09/23 06/09/23 Unknown History cyclobenzaprine 10 mg tablet 10 mg PO DAILY PRN muscle spasm 06/09/23 06/09/23 Unknown History eszopiclone 3 mg tablet 3 mg PO BEDTIME 06/09/23 06/09/23 06/08/23 History levothyroxine 100 mcg tablet 100 mcg PO SUTUWETHFRSA 06/09/23 06/09/23 06/08/23 History (Levoxyl) Physical Exam 2 Vital Signs and Narrative: Vital Signs: Last Vital Signs Temp 99 F 06/09/23 14:08 Pulse 92 06/09/23 14:08 Resp 18 06/09/23 14:08 BP 140/86 H 06/09/23 14:08 Pulse Ox 96 06/09/23 14:08 O2 Del Method Room Air 06/09/23 14:08 BMI result Body Mass Index 19.6 Constitutional: Alert, in no acute distress. Mental Status: Oriented to person, place and time. Eyes: Pupils are equal, round, and reactive to light. Ear, Nose, and Throat: Oropharynx clear, mucous membranes moist. Ears and nose without deformities. Trachea midline. Respiratory: Clear to auscultation bilaterally. No wheezing, rales, or rhonchi. Cardiovascular: S1, S2 regular. No murmurs, rubs, or gallops. Gastrointestinal: Abdomen soft, non-distended, with periumbilical tenderness. Normal bowel sounds. Neurologic: Cranial nerves II-XII are grossly intact bilaterally. No focal neurological deficits. Moves all extremities spontaneously. Skin: Warm, dry. Musculoskeletal: No cyanosis or clubbing. Extremities: No edema. Psychiatric: Mildly anxious. Results Labs 06/09/23 07:56 06/09/23 07:56 Labs: Laboratory Results - last 24 hr 06/09/23 06/09/23 06/09/23 07:56 09:59 12:19 MCV 88.6 MCH 29.7 MCHC 33.6 RDW 12.2 Plt Count 164 MPV 11.2 Immature Gran % (Auto) 0.4 Neut % (Auto) 70.9 Lymph % (Auto) 14.2 L [place] % (Auto) 13.9 H Eos % (Auto) 0.2 Baso % (Auto) 0.4 Lymph # (Auto) 0.8 L [place] # (Auto) 0.7 Eos # (Auto) 0.0 Baso # (Auto) 0.0 Abs Immat Gran (auto) 0.02 Absolute Neuts (auto) 3.8 Absolute Nucleated RBC 0.000 Nucleated RBC % (auto) 0.0 Anion Gap 17 Estim Creat Clear Calc 54.3 Estimated GFR > 60 Random Glucose 95 Calcium 9.1 Total Bilirubin 0.7 AST 33 H ALT 19 Alkaline Phosphatase 47 Lactate Dehydrogenase Cancelled C-Reactive Protein Cancelled Total Protein 8.2 H Albumin 4.0 Lipase 35 TSH 0.48 Urine Color Yellow Urine Appearance Clear Urine pH 8.0 Ur Specific [place] 1.015 Urine Protein Negative Urine Glucose (UA) Negative Urine Ketones Trace Urine Blood Negative Urine Nitrite Negative Ur Leukocyte Esterase Negative Ur Random Sodium 97.0 Urine Creatinine 26.28 06/09/23 14:36 MCV MCH MCHC RDW Plt Count MPV Immature Gran % (Auto) Neut % (Auto) Lymph % (Auto) [place] % (Auto) Eos % (Auto) Baso % (Auto) Lymph # (Auto) [place] # (Auto) Eos # (Auto) Baso # (Auto) Abs Immat Gran (auto) Absolute Neuts (auto) Absolute Nucleated RBC Nucleated RBC % (auto) Anion Gap Estim Creat Clear Calc Estimated GFR Random Glucose Calcium Total Bilirubin AST ALT Alkaline Phosphatase Lactate Dehydrogenase 163 C-Reactive Protein 1.98 H Total Protein Albumin Lipase TSH Urine Color Urine Appearance Urine pH Ur Specific [place] Urine Protein Urine Glucose (UA) Urine Ketones Urine Blood Urine Nitrite Ur Leukocyte Esterase Ur Random Sodium Urine Creatinine Imaging Radiologist's Impressions: Impressions Chest X-Ray 06/09/23 07:42 IMPRESSION: * Hyperinflated lungs, suggesting underlying obstructive lung disease. Clinical correlation requested. * No focal acute pulmonary process. * Prominent nipple shadows are seen in the lower lungs bilaterally. Abdomen/Pelvis CT 06/09/23 08:24 IMPRESSION: * Markedly distended urinary bladder is seen with associated moderate bilateral hydroureteronephrosis. Findings are likely related to back pressure from the markedly distended urinary bladder and possible vesicoureteral reflux. If the patient is unable to void, consider straight catheter for urinary decompression. * No evidence of nephrolithiasis or obstructive uropathy. * Tiny 0.3 cm low-attenuation mass in the lower pole of left kidney, too small to characterize, but most likely a tiny cyst. Per the ACR incidental findings guidelines, no specific imaging follow-up is warranted. * Mild colonic diverticulosis. Assessment and Plan (1) Acute hyponatremia: Status: Acute (2) COVID-19: Status: Acute Plan Pt is a 58-year-old female with a PMH significant for?Schatzki ring, Graves disease, IBS, and remote hx alcohol use disorder sober for 35 years who presents to the ED for the second time 3 days with?multiple complaints. Pt initially presented to ED on 06/07/2023 with nausea, vomiting, and abdominal pain. Was diagnosed with gastritis and also found to be positive with COVID. Patient was discharged on Zofran, morphine, and sucralfate. Patient presents again today stating medications did not provide any relief, and she has continued nausea, vomiting, and abdominal pain, as well as headache, body ache, chest tightness, and shortness on breath, and cough. Pt will be admitted to the hospital under observation for treatment and further evaluation of hyponatremia and intractable nausea and vomiting. Hyponatremia Sodium 129 at time presentation Likely secondary to GI losses and poor p.o. intake Patient received IVF in ED, placed on maintenance fluids Urine sodium and creatinine WNL, will check urine osmolality Follow BNP COVID+ Tested positive on 06/07 Mild symptoms, no hypoxia, lungs CTA Will use symptomatic treatment; no indication for remdesivir or dexamethasone Headache Patient complaining of 10/10 headache Will treat with Fioricet IBS Pt with N/V/abd pain CT negative for acute abdomen Treated with Zofran and analgesics in ED Will give 1 time dose of Compazine GI consult to establish care Urinary retention CT scan with evidence of distended bladder Patient has been able to freely void after CT scan Will do voiding trial and postvoid bladder scan prior to discharge Graves disease Continue levothyroxine Full Code Attending:?Dr. Caicedo DVT Prophylaxis: Lovenox Patient be admitted to the hospital under observation for treatment and further evaluation of hyponatremia and intractable nausea and vomiting. Given that patient has presented to the hospital twice in the past 3 days and is unable to tolerate p.o. at home, patient will require hospitalization for IV fluids, anti emetics, and close monitoring of labs. Quality Stroke Does the patient have a stroke diagnosis?: No VTE Prior VTE?: No VTE Risk Level:: Medical - moderate - high VTE Device Contraindication: Treatment Not Indicated VTE Drug Contraindication: N/A - Med Ordered
[2023-06-09 16:12] LABS: Osmolality Urine 239 mosm/kg (373-1093)
[2023-06-09] MEDS: Enoxaparin Sodium 40 MG/0.4 ML SYRINGE SUBCUT (16:57)
[2023-06-09] MEDS: Prochlorperazine Edisylate 10 MG/2 ML VIAL 5 MG IVPUSH (16:59)
[2023-06-09] MEDS: 0.9 % Sodium Chloride Flush 3 ML SYRINGE IVFLUSH (16:59)
[2023-06-09] MEDS: Butalb/Acetamin/Caff 50/325/40 TABLET 1 TAB PO (17:06)
[2023-06-09] MEDS: 0.9 % Sodium Chloride 1,000 ML 100 ML IVCONT (18:26)
[2023-06-10 00:22] VITALS: BP 151/87; PULSE 83; RESP 18; TEMP 36.9; O2SAT 96
[2023-06-10 04:00] VITALS: BP 133/72; PULSE 80; RESP 18; TEMP 36.5; O2SAT 96
[2023-06-10] MEDS: Omeprazole 20 MG CAPSULE.DR PO (06:30)
[2023-06-10 07:25] LABS: Anion Gap 14 (12-20); Blood Urea Nitrogen 8 mg/dL (9-16); Calcium 8.4 mg/dL (8.4-10.2); Carbon Dioxide 22 mmol/L (22-29); Chloride 103 mmol/L (96-108); Creatinine Clr Calc Pharmacy 57.7; Estimated Glomerular Filt Rate > 60; Glucose Random 85 mg/dL (60-115); Potassium 3.8 mmol/L (3.3-5.1); Sodium 135 mmol/L (135-145)
[2023-06-10] MEDS: 0.9 % Sodium Chloride Flush 3 ML SYRINGE IVFLUSH (07:39)
[2023-06-10 08:00] VITALS: BP 140/80; PULSE 78; RESP 20; TEMP 36.6; O2SAT 97
--- NOTE | 2023-06-10 08:59 | MHC.CM.PN ---
Radha 06/10/23, Pt lives with her , she is independent with ADL's and does not have home health care or medical equipment. HCP was completed here and added to chart, names her . Pt said that she is works, but is on a medical leave due to a shoulder and hand injury. will transport home upon DC. PCP: Dion Ocampo, JENNIFER plan is home, self care.
[2023-06-10] MEDS: Butalb/Acetamin/Caff 50/325/40 TABLET 2 TAB PO (11:45)
--- NOTE | 2023-06-10 13:23 | MHC.CLN ---
NUTRITION REVIEW OF WEIGHT HX SHOWS NO SIGNIFICANT WEIGHT CHANGE IN GREATER THAN 2 YEARS.
--- NOTE | 2023-06-10 13:23 | PM.DS ---
DS: Providers Provider Date of Service: 06/10/23 Date of admission: 06/09/23 15:23 Primary care physician: Dion Ocampo MD Consults: 06/09/23 15:31 Consult to Gastroenterology Routine Consulting Provider: Madelenie Herrera Reason for consultation: To establish outpatient care, pt with ?IBS DS: Diagnosis Discharge Diagnosis (1) Acute hyponatremia: Status: Acute (2) COVID-19: Status: Acute DS: Summary Hospital Course Hospital Course: Admission note HPI Pt is a 58-year-old female with a PMH significant for?Schatzki ring, Graves disease, IBS, and remote hx alcohol use disorder sober for 35 years who presents to the ED for the second time 3 days with?multiple complaints. Pt initially presented to ED on 06/07/2023 with nausea, vomiting, and abdominal pain. Was diagnosed with gastritis and also found to be positive with COVID. Patient was discharged on Zofran, morphine, and sucralfate. Patient presents again today stating medications did not provide any relief, and she has continued nausea, vomiting, and abdominal pain, as well as headache, body ache, chest tightness, and shortness on breath, and cough. Reports since discharge has not been able to keep anything down, saying she vomits 1 hour after eating or drinking anything. Patient also complains of losing weight over the past 3-4 months, and reports family hx of stomach cancer (father and uncle). Is followed by GI and diagnosed with IBS. Has been keeping a food diary and a food map, though expresses frustration with her GI provider and their lack of support and input. Pt wishes to be established with GI here at the hospital. In the ED pt was tachycardic up to 92 and mildly hypertensive up to 145/88, satting at 96% on RA. Labs were significant for sodium 129, CRP mildly elevated at 1.98, otherwise grossly unremarkable. No leukocytosis. Stable H&H. Serial troponins negative. TSH WNL at 0.48. Renal and hepatic function seemingly at baseline. CXR showed no focal acute pulmonary process. CT?of abdomen and pelvis found distended urinary bladder with moderate bilateral hydroureteronephrosis, and tiny 0.3 cm low-attenuation mass of left kidney that is most likely a tiny cyst. No specific imaging follow-up is warranted for this. Also found no evidence of nephrolithiasis or obstructive uropathy. EKG demonstrated normal sinus rhythm with T-wave inversions in V1 and V2 but no evidence of ST elevations or depressions. Pt was treated with IVF, morphine sulfate, ondansetron, and lorazepam. Pt will be admitted to the hospital for treatment and further evaluation of hyponatremia and intractable nausea and vomiting. Hospital course # Acute Hyponatremia Admitted for Sodium of 129 at time presentation. secondary to GI losses and poor p.o. intake. received IVF maintenance. She was able to tolerate diet well with no reported Follow BNP # COVID+ Tested positive on 06/07. Mild symptoms, no hypoxia. Will use symptomatic treatment; no indication for remdesivir or dexamethasone. was able to ambulate on room air with no complaints. Flonase for congestion. # Headache Patient complaining of 10/10 headache likely from sinusitis. responded well to Fioricet. # Abdominal pain and weight loss. CT negative for acute abdomenal findings. Improved with Zofran and pain meds. tolerated her meals overnight and this morning. To follow with GI as outpatient. To see talend etl developer for reported weight loss as well. Keep yourself well hydrated Fiorecit for headache Flonase for nasal congestion Increase physical activity as tolerated Referrals made to dr Herrera from GI and Ann Marie Baugh from Nutrition. Please call to schedule appointments. Time Attestation Discharge coordination time: Less than 30 minutes Quality: Safe Use of Opioids Does Pt have an Active Cancer Diagnosis on the Problem List?: No Quality: Stroke Does the patient have a stroke diagnosis?: No Physical Exam Vital Signs: Vital Signs: Last Vital Signs Temp 97.8 F 06/10/23 08:00 Pulse 78 06/10/23 08:00 Resp 20 06/10/23 08:00 BP 140/80 H 06/10/23 08:00 Pulse Ox 97 06/10/23 08:00 O2 Del Method Room Air 06/10/23 08:00 BMI result Body Mass Index 19.4 Const: Other: Constitutional : Awake, interactive, not in distress Neck : Normal inspection, Supple Cardiovascular : RRR, no JVP, no lower extremity edema Respiratory : good bilateral air entry, no crackles, wheezes or rhonchi Gastrointestinal: soft, lax, Normal bowel sounds, Non tender Skin : Warm, Dry Neurological : Alert & oriented x3, No focal deficit DS: Data Data Completed and Pending Labs on day of discharge: Laboratory Results - last 24 hr 06/09/23 06/09/23 06/09/23 07:56 09:59 14:36 Hold Purple Top Sodium Potassium Chloride Carbon Dioxide Anion Gap BUN Creatinine Estim Creat Clear Calc Estimated GFR Random Glucose Calcium Lactate Dehydrogenase Cancelled 163 C-Reactive Protein Cancelled 1.98 H Urine Osmolality 239 L 06/10/23 06:52 Hold Purple Top SEE NOTE Sodium 135 Potassium 3.8 D Chloride 103 Carbon Dioxide 22 Anion Gap 14 BUN 8 L Creatinine 0.76 Estim Creat Clear Calc 57.7 Estimated GFR > 60 Random Glucose 85 Calcium 8.4 D Lactate Dehydrogenase C-Reactive Protein Urine Osmolality Imaging Chest x-ray: Radiologist's impression: ITS Impressions Chest X-Ray 06/09/23 07:42 IMPRESSION: * Hyperinflated lungs, suggesting underlying obstructive lung disease. Clinical correlation requested. * No focal acute pulmonary process. * Prominent nipple shadows are seen in the lower lungs bilaterally. Abdomen/Pelvis CT 06/09/23 08:24 IMPRESSION: * Markedly distended urinary bladder is seen with associated moderate bilateral hydroureteronephrosis. Findings are likely related to back pressure from the markedly distended urinary bladder and possible vesicoureteral reflux. If the patient is unable to void, consider straight catheter for urinary decompression. * No evidence of nephrolithiasis or obstructive uropathy. * Tiny 0.3 cm low-attenuation mass in the lower pole of left kidney, too small to characterize, but most likely a tiny cyst. Per the ACR incidental findings guidelines, no specific imaging follow-up is warranted. * Mild colonic diverticulosis. Discharge Plan Discharge Anticipated Discharge Date/Time: 06/10/23 10:43 Patient Disposition: Home, Self-Care Discharge Diagnosis: Covid19 infection Hyponatremia Referrals: Dion Ocampo MD [Primary Care Provider] - 1 Week Madeleine Herrera MD [Physician] - 2 Weeks (Weight loss, abdominal distention and pain .) Ann Marie Baugh RD [Registered Dietitian] - 2 Weeks (Dietary advice. weight monitoring program. ) Discharge Medications: New fluticasone propionate 50 mcg/actuation [place],Suspension 2 spray intranasal DAILY Qty: 16 0RF [id number] [Fioricet] 50-300-40 mg capsule 1 cap PO Q8H PRN (Reason: headache) Qty: 20 1RF Continued pantoprazole [Protonix] 40 mg tablet,delayed release (DR/EC) 40 mg PO DAILY Qty: 30 0RF ondansetron 4 mg tablet,disintegrating 4 mg PO Q6H PRN (Reason: nausea and vomiting) Qty: 14 0RF morphine 15 mg tablet 15 mg PO Q8H PRN (Reason: pain) Qty: 10 0RF Rx Instructions: Partial Fill upon patient request. sucralfate 100 mg/mL suspension 10 ml PO BID Qty: 400 0RF cyclobenzaprine 10 mg tablet 10 mg PO DAILY PRN (Reason: muscle spasm) levothyroxine [Levoxyl] 100 mcg tablet 100 mcg PO SUTUWETHFRSA eszopiclone 3 mg tablet 3 mg PO BEDTIME acetaminophen 500 mg Tablet 1,000 mg PO DAILY PRN (Reason: Pain) Discharge Orders: Discharge Order (Routine); Ordered 06/10/23 Ordered By: Kin Caicedo Diet: Advance to usual diet Activity on Discharge: As tolerated Stand Alone Forms: Patient Portal Discharge page Care Plan Goals: Read below Health Concerns: Read below Plan of Treatment: Read below Assessment: Keep yourself well hydrated Fiorecit for headache Flonase for nasal congestion Increase physical activity as tolerated Referrals made to dr Herrera from GI and Ann Marie Baugh from Nutrition. Please call to schedule appointments. Discharge Date/Time: 06/10/23 13:46
--- NOTE | 2023-06-10 13:30 | MHC.CM.PN ---
Pt has been medically cleared for DC, she will call her to pick her up. DC plan is home, self care.
== END 2023-06-10 13:46 | disposition home or self-care (01) ==
LOC: HO.ED 12:23 → HO.EDOVER 16:01 → HO.IMC 18:05
PROVIDERS: Physician Assistant Medical; Admitting Provider Student in an Organized Health Care Education/Training Program; Emergency Provider Emergency Medicine; PCP Family Medicine; Visit Provider Student in an Organized Health Care Education/Training Program
DX: E87.1 Hypo-osmolality and hyponatremia (principal); U07.1 COVID-19; R51.9 Headache, unspecified; K58.9 Irritable bowel syndrome, unspecified; R33.9 Retention of urine, unspecified; E05.00 Thyrotoxicosis with diffuse goiter without thyrotoxic crisis or storm; R10.9 Unspecified abdominal pain; R07.9 Chest pain, unspecified; R11.2 Nausea with vomiting, unspecified; R06.02 Shortness of breath; R05.9 Cough, unspecified; K22.2 Esophageal obstruction; Z79.899 Other long term (current) drug therapy
CPT/HCPCS: 36415; 71045; 74177; 80048; 80053; 81003; 82570; 83615; 83690; 83935; 84300; 84443; 84484; 85025; 86140; 93005; 96361; 96372; 96374; 96375; 99222; 99285; J0737; J1650; J2270; J2405; Q9967

== ENCOUNTER → 2023-06-09 06:53 | Outpatient (BNV) | payer OTHER, SELFPAY | PROVIDERS: Admitting Provider Student in an Organized Health Care Education/Training Program; Emergency Provider Emergency Medicine; Visit Provider Internal Medicine Cardiovascular Disease | DX: R94.31 Abnormal electrocardiogram [ECG] [EKG] (principal) | CPT/HCPCS: 93010 ==

== ENCOUNTER → 2023-06-09 15:23 | Outpatient (BNV) | payer OTHER, SELFPAY | PROVIDERS: Admitting Provider Student in an Organized Health Care Education/Training Program; Emergency Provider Emergency Medicine; PCP Family Medicine; Visit Provider Student in an Organized Health Care Education/Training Program | DX: E87.1 Hypo-osmolality and hyponatremia (principal); U07.1 COVID-19 | CPT/HCPCS: 99222; 99238 ==

== ENCOUNTER 2023-08-01 14:25 | Outpatient (AMB) | payer OTHER, SELFPAY ==
[2023-08-01 14:29] VITALS: BP 162/95; PULSE 97
--- NOTE | 2023-08-01 14:29 | MHC.OFFVIS ---
Intake Vital Signs 08/01/23 14:29 Height 5 ft 1 in Weight 105 lb 13.15 oz BMI 20.0 BP 162/95 H Blood Pressure Location Lt brachial Position Sitting Pulse 97 Intake Visit Reasons: GERD and weight loss Intake Note: Judi presents in the office as a new patient for GERD and weight loss. CC: She states that she is slowly gaining the weight - [facility] She states she is out on PFMLA due to rotator cuff tear. 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: No Allergies Penicillins [PENICILLINS] Allergy (Unknown, Verified 08/01/23 14:29) DIFF BREATHING Medication List - Last Reconciled 08/01/23 by Nicole Braswell PA-C acetaminophen 1,000 mg PO DAILY PRN [id number] 50-300-40 mg (Fioricet) 1 cap PO Q8H PRN cyclobenzaprine 10 mg PO DAILY PRN eszopiclone 3 mg PO BEDTIME fluticasone propionate 50 mcg/actuation 2 sprays intranasal DAILY levothyroxine (Levoxyl) 100 mcg PO SUTUWETHFRSA ondansetron 4 mg PO Q6H PRN HPI HPI Comments History of Present Illness Details 58 year old female referred after hospital admission for Covid- GERD and weight loss Established with [facility] treated for IBS -requesting 2nd opinion -due to feeling of lack of input. She was mostly recently seen by [facility] for weight did a course of Xifaxan- SIBO 05/[address] She requested to see Dr[address] Herrera- She presents today acid reflux, weight loss over the past 6 months She is unable to gain wt- she eats high calorie- 6 times a day She has Graves dz- has never been like this- she has been following with endocrinology [facility]colonoscopy 2020- normal She started [place]- high calorie 11/2021- CT- normal 07/06- UGI- unremarkable. She has loose stool-for the past 6 months at least CXR- recent- reports as normal No fever or chills no hematemesis or hematochezia [facility] Medical History (Updated 08/14/23 @ 14:22 by Nicole Braswell PA-C) Schatzki's ring of distal esophagus IBS (irritable bowel syndrome) Alcohol use disorder Insomnia Graves disease Surgical History Hx of colonoscopy History of esophagogastroduodenoscopy (EGD) Social History Household Members: Spouse Housing: House Do you presently have visiting nurse or other home services: No Alcohol intake: never Comment: PT REFUSED Patient Tobacco Use Status: Former Tobacco user Tobacco use type: Cigarette Years Smoked: 15 e-Cigarette/Vaping Use: Never Used service: No Review of Systems Const All systems reviewed & are unremarkable except as noted in HPI and below Denies chills, Denies fever(s) and Reports weight loss Card Denies chest pain GI Reports heartburn and Reports loose stools Skin/Breast Reports rash (sandpaper like) Physical Exam Vital Signs: Last Vital Signs Pulse 97 08/01/23 14:29 BP 162/95 H 08/01/23 14:29 BMI result Body Mass Index 20.0 Const General: cooperative and anxious Nutritional Appearance: thin Orientation/consciousness: patient oriented x3 Limitations: no limitations Eyes Sclerae: sclerae normal Resp Effort & Inspection: normal respiratory effort and able to speak in complete sentences Auscultation: clear to auscultation bilaterally, no rales, no rhonchi and no wheezes Cardio Rate: regular rate Rhythm: regular rhythm Heart sounds: S1 normal heart sound present and S2 normal heart sound present GI Palpation (GI): Soft to palpation and nontender Auscultation: normal bowel sounds Neuro General: patient oriented x3 Extrem General: Yes full ROM Psych Appearance: well kempt Speech and movement: Pressured speech present Affect: Anxious affect present Attitude: cooperative Thought process: Circumstantial thought process present Thought content: Normal thought content present Assessment & Plan Assessment & Plan (1) Weight loss: Code(s): R63.4 - Abnormal weight loss (2) Acid reflux: Code(s): K21.9 - Gastro-esophageal reflux disease without esophagitis Plan: Omeprazole QD Reflux precautions (3) Loose stools: Code(s): R19.5 - Other fecal abnormalities (4) IBS (irritable bowel syndrome): Comment: Extremely anxious-not well focused-specific Code(s): K58.9 - Irritable bowel syndrome without diarrhea Plan Plan-Care dependent on above Orders: Orders Calprotectin, Fecal 08/05/23 R19.7 - Diarrhea, unspecified Thyroid Stimulating Hormone 08/02/23 R19.8 - Other specified symptoms and signs involving the digestive system and abdomen H pylori Ag Stool 08/05/23 A04.8 - Other specified bacterial intestinal infections Transglutaminase IgA 08/02/23 R19.7 - Diarrhea, unspecified Endomysial IgA rflx Titer 08/02/23 R63.4 - Abnormal weight loss, K21.9 - Gastro-esophageal reflux disease without esophagitis Vitamin B12 and Folate 08/02/23 D64.9 - Anemia, unspecified Pancreatic Elastase-1 08/05/23 R63.4 - Abnormal weight loss, K21.9 - Gastro-esophageal reflux disease without esophagitis Complete Blood Count Auto Diff 08/02/23 K52.9 - Noninfective gastroenteritis and colitis, unspecified Comprehensive Met. Panel 08/02/23 K58.9 - Irritable bowel syndrome without diarrhea Erythrocyte Sedimentation Rate 08/02/23 R19.7 - Diarrhea, unspecified CDiff Gene PCR 08/05/23 R19.7 - Diarrhea, unspecified GI Panel 08/05/23 R19.7 - Diarrhea, unspecified Fecal Fat Qualitative 08/05/23 R63.4 - Abnormal weight loss, K21.9 - Gastro-esophageal reflux disease without esophagitis Medications: New omeprazole 20 mg PO DAILY 30 tabs 5RF 30 days Patient Instructions: Extremely anxious, thin 58-year-old female here for 2nd opinion for weight loss done acid reflux We will get labs as well as stool study to rule out underlying causes of loose stool Omeprazole daily for acid reflux Reflux precautions review Will see her back for plan of care dependent on above Coding Level of Care Code New Pt Level 4 (32047) Diagnoses Weight loss R63.4 Acid reflux K21.9 Loose stools R19.5 IBS (irritable bowel syndrome) K58.9 Time Spent (min) 35
== END 2023-08-01 15:13 | disposition home or self-care (01) ==
PROVIDERS: PCP Family Medicine; Visit Provider Physician Assistant
DX: R63.4 Abnormal weight loss (principal); K21.9 Gastro-esophageal reflux disease without esophagitis; R19.5 Other fecal abnormalities; K58.9 Irritable bowel syndrome, unspecified
CPT/HCPCS: 99204

== ENCOUNTER → 2023-08-01 14:25 | Outpatient (BNVA) | payer OTHER, SELFPAY | PROVIDERS: PCP Family Medicine; Visit Provider Physician Assistant ==

== ENCOUNTER 2023-08-02 08:06 | Outpatient (REF) | payer OTHER, SELFPAY ==
[2023-08-02 08:44] LABS: MANUAL DIFF FLAG NO
[2023-08-02 09:35] LABS: Basophils Absolute Auto 0.1 X10*3/uL (0.0-0.2); Basophils Percent Auto 0.8 % (0-2); Eosinophils Absolute Auto 0.2 X10*3/uL (0.0-0.4); Eosinophils Percent Auto 2.3 % (0-4); Hematocrit 39.2 % (37.0-47.0); Imm Gran Abs Auto 0.02 X10*3/uL (0.00-0.03); Imm Gran Pct Auto 0.3 % (0.0-0.4); Lymphocytes Absolute Auto 1.4 X10*3/uL (1.2-4.9); Lymphocytes Percent Auto 17.7 % (20-40); Mean Corpuscular HGB Conc 33.2 g/dl (31.0-35.0); Mean Corpuscular Hemoglobin 30.8 pg (27.0-33.0); Mean Corpuscular Volume 92.9 fL (80.0-98.0); Mean Platelet Volume 11.4 fL (9.4-12.3); Monocytes Absolute Auto 0.6 X10*3/uL (0.1-1.2); Monocytes Percent Auto 7.5 % (2-11); Neutrophils Absolute Auto 5.6 x10*3/uL (2.0-8.3); Neutrophils Percent Auto 71.4 % (45-73); Platelet Count 240 X10*3/uL (160-400); Red Blood Count 4.22 X10*6/uL (4.20-5.50); White Blood Count 7.8 X10*3/uL (4.8-10.8)
[2023-08-02 10:11] LABS: Alanine Aminotransferase 25 U/L (0-31); Albumin Level 4.2 g/dL (3.5-5.0); Alkaline Phosphatase 54 U/L (39-117); Anion Gap 12 (12-20); Aspartate Amino Transferase 22 U/L (5-31); Bilirubin Total 0.5 mg/dL (0.0-1.0); Blood Urea Nitrogen 20 mg/dL (9-16); Calcium 9.3 mg/dL (8.4-10.2); Carbon Dioxide 28 mmol/L (22-29); Chloride 102 mmol/L (96-108); Estimated Glomerular Filt Rate > 60; Glucose Random 76 mg/dL (60-115); Potassium 3.9 mmol/L (3.3-5.1); Sodium 138 mmol/L (135-145); Total Protein 7.5 g/dL (6.5-8.0)
[2023-08-02 10:17] LABS: Erythrocyte Sedimentation Rate 14 MM/HR (0-20)
[2023-08-02 10:27] LABS: Thyroid Stimulating Hormone 3.36 uIU/mL (0.32-4.0)
[2023-08-02 10:32] LABS: Folate 15.1 ng/mL (> or = 4.0); Vitamin B12 814 pg/mL (200-900)
[2023-08-06 08:22] LABS: Endomysial IgA Antibody Negative (Negative)
[2023-08-08 06:18] LABS: Transglutaminase IgA <1.0 U/mL
== END 2023-08-02 08:07 | disposition home or self-care (01) ==
LOC: HO.LAB 08:06
PROVIDERS: PCP Family Medicine; Visit Provider Physician Assistant
DX: R19.8 Other specified symptoms and signs involving the digestive system and abdomen (principal); R63.4 Abnormal weight loss; K21.9 Gastro-esophageal reflux disease without esophagitis; D64.9 Anemia, unspecified; K52.9 Noninfective gastroenteritis and colitis, unspecified
CPT/HCPCS: 36415; 80053; 82607; 82746; 84443; 85025; 85652; 86231; 86364

== ENCOUNTER 2023-08-05 08:10 | Outpatient (REF) | payer OTHER, SELFPAY ==
[2023-08-05 11:39] LABS: Adenovirus F 40/41 Not Detected (Not Detect.); Astrovirus Not Detected (Not Detect.); Campylobacter Not Detected (Not Detect.); Cryptosporidium Not Detected (Not Detect.); Cyclospora cayetanensis Not Detected (Not Detect.); E. coli EAEC Not Detected (Not Detect.); E. coli EPEC Not Detected (Not Detect.); E. coli ETEC Not Detected (Not Detect.); E. coli STEC Not Detected (Not Detect.); Entamoeba histolytica Not Detected (Not Detect.); Giardia lamblia Not Detected (Not Detect.); Norovirus GI/GII Not Detected (Not Detect.); Plesiomonas shigelloides Not Detected (Not Detect.); Rotavirus A Not Detected (Not Detect.); Salmonella Not Detected (Not Detect.); Sapovirus Not Detected (Not Detect.); Shigella sp./EIEC Not Detected (Not Detect.); Vibrio Not Detected (Not Detect.); Vibrio Cholerae Not Detected (Not Detect.); Yersinia enterocolitica Not Detected (Not Detect.)
[2023-08-05 11:55] LABS: CDiff Gene PCR NEGATIVE (Negative)
[2023-08-08 05:46] LABS: Fecal Fat Qualitative Normal (Normal)
[2023-08-10 18:18] LABS: Pancreatic Elastase-1 >500 mcg/g
[2023-08-11 22:38] LABS: Calprotectin, Fecal 16 mcg/g
== END 2023-08-05 08:11 | disposition home or self-care (01) ==
LOC: HO.LNP 08:10
PROVIDERS: Visit Provider Physician Assistant
DX: R19.7 Diarrhea, unspecified (principal); A04.8 Other specified bacterial intestinal infections; R63.4 Abnormal weight loss; K21.9 Gastro-esophageal reflux disease without esophagitis
CPT/HCPCS: 82656; 82705; 83993; 87338; 87493; 87507

== ENCOUNTER 2023-09-02 11:31 | Outpatient (AMB) | payer OTHER, SELFPAY ==
--- NOTE | 2023-09-02 11:44 | MHC.OFFVIS ---
Vital Signs 09/02/23 11:49 Height 5 ft 1 in Weight 105 lb 8 oz BMI 19.9 BP 134/78 Blood Pressure Location Lt brachial Position Sitting Intake Visit Reasons: 1 month follow up Intake Note: Patient follow up acid reflex Patient cc: loose stool and different color, bloating and gassy pain, and acid reflex with burning sensation on and off. Childcare Center Director Required: No Accompanied by: Self / Same As Patient Allergies Penicillins [PENICILLINS] Allergy (Unknown, Verified 09/02/23 11:41) DIFF BREATHING HPI Comments Details: A 58 y/o female seen initially for 2nd opinion after having workup at [facility] for multiple GI complaint PCP sent hr for u/s due to ferritin- 247- showed fatty liver She was sent for blood work as well as stool studies is here to discuss findings She is feeling better- less stomach issues-she feels she is eating better able to tolerate more bowels - loose- HFD- protein shakes-she has always had issues with her weight-she is followed with Endocrine for many years however they have now retired Thyroid - Graves disease-she is no longer being followed- she is requesting referral Colonoscopy normal 2021 [place] She has no nausea, vomiting, hematemesis, hematochezia fever chills PFSH Medical History (Updated 09/02/23 @ 14:54 by Nicole Braswell PA-C) Schatzki's ring of distal esophagus IBS (irritable bowel syndrome) Alcohol use disorder Insomnia Graves disease Surgical History Hx of colonoscopy History of esophagogastroduodenoscopy (EGD) Social History Household Members: Spouse Housing: House Do you presently have visiting nurse or other home services: No Alcohol intake: never Comment: PT REFUSED Patient Tobacco Use Status: Former Tobacco user Tobacco use type: Cigarette Years Smoked: 15 e-Cigarette/Vaping Use: Never Used service: No Review of Systems Const All systems reviewed & are unremarkable except as noted in HPI and below Card Denies chest pain and Denies dyspnea Resp Denies dyspnea GI Denies abdominal pain, Denies hematochezia, Reports loose stools, Denies nausea and Denies vomiting Physical Exam Vital Signs: Last Vital Signs BP 134/78 09/02/23 11:49 BMI result Body Mass Index 19.9 Const General: cooperative, healthy appearing, comfortable and no acute distress Nutritional Appearance: thin Orientation/consciousness: patient oriented x3 Limitations: no limitations Resp Effort & Inspection: normal respiratory effort and able to speak in complete sentences Skin General skin exam: no rashes or lesions noted Neuro General: patient oriented x3 Extrem General: Yes full ROM Psych Appearance: grossly normal and well kempt Mental Status: mental status grossly normal Speech and movement: Normal speech and movement present Affect: normal affect Attitude: cooperative Thought process: Normal thought process present Results Reviewed Results Reviewed: 05/2023 CT/CT abdomen pelvis w IV con IMPRESSION: * Markedly distended urinary bladder is seen with associated moderate bilateral hydroureteronephrosis. Findings are likely related to back pressure from the markedly distended urinary bladder and possible vesicoureteral reflux. If the patient is unable to void, consider straight catheter for urinary decompression. * No evidence of nephrolithiasis or obstructive uropathy. * Tiny 0.3 cm low-attenuation mass in the lower pole of left kidney, too small to characterize, but most likely a tiny cyst. Per the ACR incidental findings guidelines, no specific imaging follow-up is warranted. * Mild colonic diverticulosis. Assessment & Plan Assessment & Plan (1) IBS (irritable bowel syndrome): Comment: Second opinion, Extremely anxious-1 month follow up after blood work and stool studies with no findings to account for her symptoms Code(s): K58.9 - Irritable bowel syndrome without diarrhea Category: Medical Plan: Review imaging, labs and stool test (2) Loose stools: Comment: Not diarrhea, Code(s): R19.5 - Other fecal abnormalities Category: Medical Plan: Maintain high-fiber diet Continue to monitor (3) Acid reflux: Code(s): K21.9 - Gastro-esophageal reflux disease without esophagitis Category: Medical Plan: Continue PPI avoid (4) Weight loss: Comment: Diet improved, weight stable-admits to anxiety returning back to work Code(s): R63.4 - Abnormal weight loss Category: Medical Plan: Continue to monitor Stable (5) Elevated ferritin: Comment: Acute phase reactant Code(s): R79.89 - Other specified abnormal findings of blood chemistry Category: Medical Plan: Reviewed, mild elevation Will check fasting (6) Graves disease: Comment: Patient requesting referral to endocrine-referral put through Code(s): E05.00 - Thyrotoxicosis with diffuse goiter without thyrotoxic crisis or storm Category: Medical Plan: Referral to endocrine Patient to discuss with PCP Orders: Orders C Reactive Protein Today K58.9 - Irritable bowel syndrome without diarrhea, R19.5 - Other fecal abnormalities Ferritin Today R79.89 - Other specified abnormal findings of blood chemistry Referrals Endocrinology Referral E05.00 - Thyrotoxicosis with diffuse goiter without thyrotoxic crisis or storm Patient Instructions: 58-year-old female seen initially for 2nd opinion follows up after 1 month-she admits to improvement in her symptoms she is eating better stools are not diarrhea- Discussed labs stool studies previous imaging-opportunity for questions We will get a fasting ferritin, explained acute phase reactant-hold off on testing for hemochromatosis She will continue to monitor symptoms Continue PPI avoid culprits Follow-up with progress-she may call Encouraged to call questions or concerns
[2023-09-02 11:49] VITALS: BP 134/78; BMI 19.9
== END 2023-09-02 13:28 | disposition home or self-care (01) ==
LOC: HO.HGI 11:31
PROVIDERS: PCP Family Medicine; Visit Provider Physician Assistant
DX: K58.9 Irritable bowel syndrome, unspecified (principal); R19.5 Other fecal abnormalities; K21.9 Gastro-esophageal reflux disease without esophagitis; R63.4 Abnormal weight loss; R79.89 Other specified abnormal findings of blood chemistry; E05.00 Thyrotoxicosis with diffuse goiter without thyrotoxic crisis or storm
CPT/HCPCS: 99213

== ENCOUNTER → 2023-09-02 11:31 | Outpatient (BNVA) | payer OTHER, SELFPAY | PROVIDERS: PCP Family Medicine; Visit Provider Physician Assistant ==

== ENCOUNTER 2023-09-04 07:07 | Outpatient (REF) | payer OTHER, SELFPAY ==
[2023-09-04 09:15] LABS: C Reactive Protein 0.14 mg/dL (< or = 0.50)
[2023-09-04 09:19] LABS: Ferritin 233 ng/mL (10-250)
== END 2023-09-04 07:08 | disposition home or self-care (01) ==
LOC: HO.LAB 07:07
PROVIDERS: PCP Family Medicine; Visit Provider Physician Assistant
DX: R79.89 Other specified abnormal findings of blood chemistry (principal); K58.9 Irritable bowel syndrome, unspecified; R19.5 Other fecal abnormalities
CPT/HCPCS: 36415; 82728; 86140

== ENCOUNTER 2024-03-14 07:26 | Outpatient (REF) | payer OTHER, SELFPAY ==
[2024-03-14 08:49] LABS: Cortisol Random 8.6 ug/dL
[2024-03-14 08:50] LABS: TSH reflex Free T4 2.51 uIU/mL (0.32-4.0)
[2024-03-18 07:38] LABS: Antibody to SS-A Antigen <1.0 NEG AI (<1.0 NEG); Antibody to SS-B Antigen <1.0 NEG AI (<1.0 NEG)
== END 2024-03-14 07:27 | disposition home or self-care (01) ==
LOC: HO.LAB 07:26
PROVIDERS: PCP Family Medicine; Visit Provider Internal Medicine Endocrinology, Diabetes & Metabolism
DX: R63.4 Abnormal weight loss (principal); E89.0 Postprocedural hypothyroidism; R68.2 Dry mouth, unspecified; H04.123 Dry eye syndrome of bilateral lacrimal glands
CPT/HCPCS: 36415; 82533; 84443; 86235

== ENCOUNTER 2024-04-04 07:13 | Outpatient (REF) | payer OTHER, SELFPAY ==
[2024-04-04 08:24] LABS: Cortisol Random 9.8 ug/dL
[2024-04-11 19:34] LABS: Adrenocorticotropic Hormone 13 pg/mL (6-50)
== END 2024-04-04 07:14 | disposition home or self-care (01) ==
LOC: HO.LAB 07:13
PROVIDERS: PCP Family Medicine; Visit Provider Internal Medicine Endocrinology, Diabetes & Metabolism
DX: R63.4 Abnormal weight loss (principal)
CPT/HCPCS: 36415; 82024; 82533

== ENCOUNTER 2024-05-29 08:35 | Outpatient (REF) | payer OTHER, SELFPAY ==
[2024-05-29 10:39] LABS: Free T4 (Free Thyroxine) 1.33 ng/dL (0.71-1.85); Thyroid Stimulating Hormone 1.44 uIU/mL (0.32-4.0)
[2024-05-30 09:28] LABS: Triiodothyronine T3 Free 2.5 pg/mL (2.3-4.2)
[2024-05-30 10:38] LABS: Follicle Stimulating Hormone 118.6 mIU/mL; Lutenizing Hormone 38.2 mIU/mL; Prolactin 3.5 ng/mL
[2024-06-04 15:34] LABS: IGF-1 (Somatomedin C) 172 ng/mL (41-279); IGF-1 Z Score (Female) 0.7 SD (-2.0 - +2.0)
== END 2024-05-29 08:36 | disposition home or self-care (01) ==
LOC: HO.LAB 08:35
PROVIDERS: PCP Family Medicine; Visit Provider Internal Medicine Endocrinology, Diabetes & Metabolism
DX: R63.4 Abnormal weight loss (principal); E89.0 Postprocedural hypothyroidism
CPT/HCPCS: 36415; 83001; 83002; 84146; 84305; 84439; 84443; 84481

== ENCOUNTER 2024-08-15 10:56 | Outpatient (REF) | payer OTHER, SELFPAY ==
--- OUTSIDE RECORDS SUMMARY | 2024-08-15 10:59 | XMS_ITS | Continuity of Care Document ---
Author Organization [facility] [address] [place] [address] Phone [phone] Care Team Providers Care Refinery Process Engineer Name Role Phone Larry Borjas MD Care Team Information Recei samantha [phone] Problems Active Problems Provider Date Hypothyroidism Constantin Gage M.D. Onset: Dysthymia Constantin Gage M.D. Onset: Hypothyroidism following radioiodine therapy Jorge Gage M.D. Onset: 12/11/2021 Irritable bowel syndrome Constantin Gage M.D. O nset: 12/11/2021 Anxiety state Constantin Gage M.D. Onset: 05/2021 Weight decreased Constantin Gage M.D. Onset: Social History Type Date Description Comments Sex Unknown ETOH Use Denies alcohol use Tobacco Use Start: Unknown End: Unknown Patient is a former smoker Medications Active Medications SIG Qnty Indications Ordering Provider Date Dicyclomine PSC23gd Capsules 1 tab ac 60caps Constantin Gage M.D. 12/11/2021 [id number] Tablets 1 by mouth 6 days a week Constantin Gage M.D. 11/26/2021 Vital Signs Date Vital Result Comment 12/11/2021 2:24pm BP Systolic 130 mmHg BP Diastolic 80 mmHg Heart Rate 96 /min Height 62 inches 5'2 Weight 108.00 lb BMI (Body Mass Index) 19.8 kg/m2 Results Test Acquired Date Facility Test Result H/L Range N ote TSH With Reflex To FT4 03/09/2023 [facility] TSH With Reflex To FT4 2.39 uIU/mL (0.4-4.2) TSH 01/05/2023 [facility] TSH Duplicate Order TSH With Reflex To FT4 01/05/2023 [facility] TSH With Reflex To FT4 2.24 uIU/mL (0.4-4.2) Medical Devices Description No Information Available Encounters Type Date Location Provider Dx Diagnosis Office Visit 12/11/2021 2:15p Main Office Constantin Gage M.D. E03.9 Hypothyroidism, unspecified R63.4 Abnormal weight loss K58.9 Irritable bowel synd leoncio without diarrhea Assessments Date Code Description Provider 03/09/2023 E03.9 Hypothyroidism, unspecified Constantin Gage M.D. 01/05/2023 E03.9 Hypothyroidism, unspecified Constantin Gage M.D. 12/11/2021 E03.9 Hypothyroidism Constantin torres M.D. 12/11/2021 R63.4 Abnormal weight loss Constantin mujica M.D. 12/11/2021 K58.9 Irritable bowel syndrome Jorge Gage M.D. Plan of Treatment 12/11/2021 - Constantin Gage M.D.* E03.9 Hypothyroidism * R63.4 Abnormal weight loss * K58.9 Irritable bowel syndrome * Functional Status Description No Information Available Mental Status Description No Information Available Referrals Description No Information Available
[2024-08-15 12:07] LABS: Free T4 (Free Thyroxine) 1.13 ng/dL (0.71-1.85); Thyroid Stimulating Hormone 4.36 uIU/mL (0.32-4.0)
== END 2024-08-15 10:57 | disposition home or self-care (01) ==
LOC: HO.LAB 10:56
PROVIDERS: PCP Family Medicine; Visit Provider Internal Medicine Endocrinology, Diabetes & Metabolism
DX: E89.0 Postprocedural hypothyroidism (principal)
CPT/HCPCS: 36415; 84439; 84443

== ENCOUNTER 2024-08-18 09:07 | Outpatient (AMB) | payer OTHER, SELFPAY ==
[2024-08-18 09:14] VITALS: BP 144/85; PULSE 88; O2SAT 97; BMI 19.8
--- NOTE | 2024-08-18 09:14 | MHC.OFFVIS ---
Vital Signs 08/18/24 09:14 Height 5 ft 1 in Weight 105 lb BMI 19.8 BP 144/85 H Blood Pressure Location Lt brachial Position Sitting Pulse 88 Pulse Oximetry (%) 97 Oxygen Delivery Method Room Air Intake Visit Reasons: follw Intake Note: Patient complex follow up for acid reflux and lab results from last visit 09/02/2023 with Nicole. Patient cc: nauseas, LUQ pain with bloating, patient feeling air/gasses on her stomach, and weight loss. Drier Belt Conveyor Required: No Accompanied by: Self / Same As Patient Allergies Penicillins [PENICILLINS] Allergy (Unknown, Verified 08/18/24 09:12) DIFF BREATHING HPI HPI follw: Details: Patient is a 59-year-old female with PMH GERD, graves disease, alcohol dependence in remission, opioid dependence in remission and former smoker. Last seen by Marysol 07/2023 for fatty liver. Pt seen today for mx concerns: -Chronic acid reflux -Chronic unintentional wt loss -acute LUQ ab pain Reports increase in acid reflux the past few weeks. She continues with omeprazole 20 mg daily, taken around 1500. She is also requiring TUMS 2-3 tablets up to TID the last 3-4 weeks. EGD 06/01/2022: Esophageal squamous and gastric cardia mucosa with chronic active inflammation and reactive changes. No intestinal metaplasia identified. Duodenum and stomach without pathologic change. She expresses concern for wt loss, not able to gain weight. Shares this is an ongoing problem. PCP aware and initiated workup 10/2023, that includes an U/S X 2. Shares she is also connected with Endocrinology through [facility] and underwent a recent workup. She needs to call to schedule a follow up appt. Shares she is working to eat more protein and fat in her diet. Consumes: cava and a canoli daily. Other commonly foods consumed: -oatmeal -chicken salad with miracle whip -kale soup -kind bar -eletrolytes replacement -water Associated symptoms: fatigue, decrease appetite She reports LUQ ab pain onset approx one week ago. She describes the pain as sharp, currently rating a 6-7/10 and describes a numb. Reports daily bowel movement, type 4 on Loíza stool chart. 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 Expresses concern this medication may have irritated her taina. Associated symptoms: can't get air up , belching, nausea Aggravating factors: unable to identify Alleviating attempts: ambulation, gas-x 3x/week X 2-3 weeks, small meals Patient denies: systemic symptoms, vomiting, dysphasia, pulmonary symptoms, bladder changes, melena/hematochezia or injury/trauma. Social hx: ETOH cessation X 34 years ago (1990). Previous heavy daily intake heroin use via sniffing, cessation age 26. Denies other recreational drug use former smoker 1ppd, 20 pack year hx. Surgical hx: appy age 12 Denies personal hx of CA Family hx: Father elliott of the stomach CA, remission x 1 year [facility] Medical History (Updated 08/18/24 @ 13:06 by Dana Swenson CNP) Opioid abuse LUQ abdominal pain Former smoker, stopped smoking many years ago Schatzki's ring of distal esophagus IBS (irritable bowel syndrome) Alcohol use disorder Insomnia Graves disease Surgical History Hx of colonoscopy History of esophagogastroduodenoscopy (EGD) Social History Household Members: Spouse Housing: House Do you presently have visiting nurse or other home services: No Alcohol intake: never Comment: PT REFUSED Patient Tobacco Use Status: Former Tobacco user Tobacco use type: Cigarette Years Smoked: 15 e-Cigarette/Vaping Use: Never Used service: No Physical Exam Vital Signs: Last Vital Signs Pulse 88 08/18/24 09:14 BP 144/85 H 08/18/24 09:14 Pulse Ox 97 08/18/24 09:14 Oxygen Delivery Method Room Air 08/18/24 09:14 BMI result Body Mass Index 19.8 Const General: healthy appearing, no acute distress and well developed Nutritional Appearance: well nourished Orientation/consciousness: patient oriented x3 HEENT Head: Yes normal to inspection, Yes normocephalic and Yes atraumatic Face and sinus: Yes normal facial exam Eyes General: appearance normal, both eyes and all related structures Neck Neck: Yes normal visual inspection Resp Effort & Inspection: normal respiratory effort, able to speak in complete sentences, no tracheal deviation and symmetric chest movement Auscultation: clear to auscultation bilaterally Cardio Jugular venous distension: no JVD Rate: regular rate Rhythm: regular rhythm Heart sounds: S1 normal heart sound present, S2 normal heart sound present, no gallops and no murmurs GI Inspection: Yes normal to inspection and No distended Palpation (GI): Soft to palpation, not firm, Tenderness to palpation present (GI) in the LLQ, in the LUQ and periumbilically, Guarding due to palpation present (GI) in the LLQ and in the LUQ and No hepatosplenomegaly present Auscultation: normal bowel sounds Neuro General: patient oriented x3 Gait exam (Neuro): Normal gait present and Assistive device used Psych Appearance: grossly normal Mental Status: mental status grossly normal Speech and movement: Normal speech and movement present Affect: normal affect Attitude: cooperative Thought process: Normal thought process present Thought content: Normal thought content present Insight: Good insight present (Psych) Judgement: Good judgement present (Psych) Results Reviewed Results Reviewed: Laboratory Tests 09/04/23 07:24 Ferritin 233 Assessment & Plan Assessment & Plan (1) Acid reflux: Code(s): K21.9 - Gastro-esophageal reflux disease without esophagitis Category: Medical Qualifiers: Esophagitis presence: without esophagitis Qualified Code(s): K21.9 - Gastro-esophageal reflux disease without esophagitis Plan: Increase in symptoms requiring breakthrough therapy with TUMS. Shared decision-making to increase omeprazole to 40 mg daily. Can continue with antacids as needed. Will also obtain a upper GI with small bowel to evaluate for potential hernia VS obstruction. Do believe she would benefit from a repeat EGD given exacerbation in symptoms, weight changes and ? familial cancer history. We spoke after the visit and she was agreeable to adding procedure to the plan. Reinforced GERD prevention-Advised against heavy meals.? Encouraged small frequent meals VS large meals, remaining upright after meals x 2-3 hours, avoid spicy foods/caffeine/alcohol and known triggers. Call back precautions reviewed. (2) LUQ abdominal pain: Code(s): R10.12 - Left upper quadrant pain Category: Medical Plan: Etiology of symptoms unclear. Did review anatomy with patient. Normal abdominal pelvis CT 12/03/2021. Advised we proceed with labs and imaging via CT scan, she is agreeable. Diet and activity as tolerated. Strict ER and return precautions reviewed. (3) Former smoker, stopped smoking many years ago: Code(s): Z87.891 - Personal history of nicotine dependence Category: Social Hx Plan: 20-pack year history. Encouraged to discuss LDCT with PCP. CXR as below (4) Graves disease: Code(s): E05.00 - Thyrotoxicosis with diffuse goiter without thyrotoxic crisis or storm Category: Medical Plan: 08/15/2024 TSH 4.36 with T4 of 1.13. Prescribed levothyroxine. Strongly encouraged to follow-up with endocrinology to discuss potential dose adjustment. (5) Weight loss: Code(s): R63.4 - Abnormal weight loss Category: Medical Plan: Weight stable the last year with 3lb fluctuation. DDX reviewed: thyroid disorder induced VS malignancy VS gastrointestinal disorder. We will obtain basic and screening labs, along with chest x-ray, upper GI with small bowel and Endoscopy. Diet as tolerated. (6) Elevated ferritin: Code(s): R79.89 - Other specified abnormal findings of blood chemistry Category: Medical Plan: Normal ferritin 08/2023. Repeat today. 12/20/2023 ultrasound elastography: Liver elastography stiffness value 5.3kPa, not consistent with advanced liver disease. Plan Follow-up 8 weeks after result or sooner as needed. Time: I spent a total of 60 minutes on the date of encounter which includes: Preparing to see the patient (reviewed previous documentation, test results and medical history) Performing a medically appropriate exam and/or evaluation Ordering medications, tests, and procedures Documenting clinical information in the health record Orders: Orders Hepatitis B Surface Antigen Today R63.4 - Abnormal weight loss Hepatitis B Surface Antibody Today R63.4 - Abnormal weight loss HIV Ab/Ag Today R63.4 - Abnormal weight loss Mitochondrial Antibody Today R63.4 - Abnormal weight loss FL upper GI small bowel Today K21.9 - Gastro-esophageal reflux disease without esophagitis Hepatitis C Antibody Today R63.4 - Abnormal weight loss Hepatitis B Core Antibody Today R63.4 - Abnormal weight loss Hepatitis B Surface Ab Qnt Today R63.4 - Abnormal weight loss Complete Blood Count Auto Diff Today K21.9 - Gastro-esophageal reflux disease without esophagitis, R63.4 - Abnormal weight loss Comprehensive Met. Panel Today K21.9 - Gastro-esophageal reflux disease without esophagitis, R63.4 - Abnormal weight loss IRON PROFILE Today R63.4 - Abnormal weight loss Vitamin D 1,25 dihydroxy Today R63.4 - Abnormal weight loss Vitamin B12 and Folate Today R63.4 - Abnormal weight loss XR chest 2V Today R63.4 - Abnormal weight loss, Z87.891 - Personal history of nicotine dependence Smooth Muscle Antibody Today R63.4 - Abnormal weight loss LOR Reflex Titer and Pattern Today R63.4 - Abnormal weight loss CT abdomen pelvis w IV con Today R10.12 - Left upper quadrant pain Transglutaminase IgA Today R63.4 - Abnormal weight loss EGD - GI Use Only Today K21.9 - Gastro-esophageal reflux disease without esophagitis, R63.4 - Abnormal weight loss Medications: New omeprazole 40 mg PO DAILY 90 caps 1RF Changed From fluticasone propionate 50 mcg/actuation 2 sprays intranasal DAILY 16 grams 0RF To fluticasone propionate 50 mcg/actuation 2 sprays intranasal DAILY PRN 16 grams 0RF allergy symptoms Discontinued omeprazole Discontinued Reason: No Longer Medically Relevant 20 mg PO DAILY 30 days 30 tabs 5RF omeprazole Discontinued Reason: No Longer Medically Relevant 20 mg PO DAILY 30 days 30 caps 5RF Coding Level of Care Code Established Pt Est Pt Level 4 (35296) Patient Type Established Diagnoses Gastroesophageal reflux disease without esophagitis K21.9 Esophagitis presence: without esophagitis LUQ abdominal pain R10.12 Former smoker, stopped smoking many years ago Z87.891 Graves disease E05.00 Weight loss R63.4 Elevated ferritin R79.89
--- OUTSIDE RECORDS SUMMARY | 2024-08-18 10:01 | XMS_ITS | Continuity of Care Document ---
Author Organization [facility] [address] [place] [address] Phone [phone] Care Team Providers Care Commodity Trader Name Role Phone Larry Borjas MD Care Team Information Recei samantha [phone] Problems Active Problems Provider Date Hypothyroidism Constantin [...] SIG Qnty Indications Ordering Provider Date Dicyclomine [id number] Capsules 1 tab ac 60caps Constantin Gage M.D. 12/11/2021 [id number] Tablets 1 by mouth 6 days a week Constantin Gage M.D. 11/26/2021 Vital Signs Date Vital Result Comment 12/11/2021 2:24pm BP Systolic 130 mmHg BP Diastolic 80 mmHg Heart Rate 96 /min Height 62 inches 5'2 Weight 108.00 lb BMI (Body Mass Index) 19.8 kg/m2 Results Test Acquired Date Facility Test Result H/L Range N ote TSH With Reflex To FT4 03/09/2023 [facility] TSH With Reflex To FT4 2.39 uIU/mL (0.4-4.2) TSH 01/05/2023 [facility] TSH Duplicate Order TSH With Reflex To FT4 01/05/2023 [facility] TSH With Reflex To FT4 2.24 uIU/mL (0.4-4.2) Medical Devices Description No Information Available Encounters Type Date Location Provider Dx Diagnosis Office Visit 12/11/2021 2:15p Main Office Constantin Gage M.D. E03.9 Hypothyroidism, unspecified R63.4 Abnormal weight loss K58.9 Irritable bowel synd leoncio without diarrhea Assessments Date Code Description Provider 03/09/2023 E03.9 Hypothyroidism, unspecified Constantin Gage M.D. 01/05/2023 E03.9 Hypothyroidism, unspecified Cnostantin Gage M.D. 12/11/2021 E03.9 Hypothyroidism Constantin torres [...]
== END 2024-08-18 10:35 | disposition home or self-care (01) ==
LOC: HO.HGI 09:07
PROVIDERS: PCP Family Medicine; Visit Provider Nurse Practitioner Family
DX: K21.9 Gastro-esophageal reflux disease without esophagitis (principal); R10.12 Left upper quadrant pain; R63.4 Abnormal weight loss; Z87.891 Personal history of nicotine dependence; E05.00 Thyrotoxicosis with diffuse goiter without thyrotoxic crisis or storm; R79.89 Other specified abnormal findings of blood chemistry
CPT/HCPCS: 99215; 99417

== ENCOUNTER → 2024-08-18 09:07 | Outpatient (BNVA) | payer OTHER, SELFPAY | PROVIDERS: PCP Family Medicine; Visit Provider Nurse Practitioner Family ==

== ENCOUNTER 2024-08-22 07:13 | Outpatient (REF) | payer OTHER, SELFPAY ==
[2024-08-22 07:44] LABS: MANUAL DIFF FLAG NO
[2024-08-22 08:10] LABS: Basophils Percent Auto 0.7 % (0-2); Eosinophils Absolute Auto 0.1 X10*3/uL (0.0-0.4); Eosinophils Percent Auto 1.3 % (0-4); Hematocrit 43.1 % (37.0-47.0); Hemoglobin 14.4 g/dl (12.0-16.0); Imm Gran Abs Auto 0.02 X10*3/uL (0.00-0.03); Imm Gran Pct Auto 0.4 % (0.0-0.4); Lymphocytes Absolute Auto 1.2 X10*3/uL (1.2-4.9); Lymphocytes Percent Auto 22.5 % (20-40); Mean Corpuscular HGB Conc 33.4 g/dl (31.0-35.0); Mean Corpuscular Hemoglobin 30.6 pg (27.0-33.0); Mean Corpuscular Volume 91.7 fL (80.0-98.0); Mean Platelet Volume 11.2 fL (9.4-12.3); Monocytes Absolute Auto 0.4 X10*3/uL (0.1-1.2); Monocytes Percent Auto 7.8 % (2-11); Neutrophils Absolute Auto 3.7 x10*3/uL (2.0-8.3); Neutrophils Percent Auto 67.3 % (45-73); Platelet Count 179 X10*3/uL (160-400); White Blood Count 5.5 X10*3/uL (4.8-10.8)
[2024-08-22 08:21] LABS: Estimated Average Glucose 108 mg/dL; Hemoglobin A1C 137.6286 umol/L; Hemoglobin A1c % 5.4 % (<6.0); Total Hemoglobin (HGBA1C) 3821.1644 umol/L
[2024-08-22 08:42] LABS: Alanine Aminotransferase 28 U/L (0-31); Albumin Level 4.5 g/dL (3.5-5.0); Alkaline Phosphatase 49 U/L (39-117); Anion Gap 12 (12-20); Aspartate Amino Transferase 27 U/L (5-31); Blood Urea Nitrogen 20 mg/dL (9-16); Calcium 9.3 mg/dL (8.4-10.2); Carbon Dioxide 26 mmol/L (22-29); Chloride 105 mmol/L (96-108); Estimated Glomerular Filt Rate > 60; Glucose Random 86 mg/dL (60-115); Iron 125 mcg/dL (30-160); Percent Iron Saturation 43 % (15-50); Sodium 139 mmol/L (135-145); Total Iron Binding Capacity 291 mcg/dL (228-428); Total Protein 7.6 g/dL (6.5-8.0); Unsaturated Iron Binding 166 ug/dL
[2024-08-22 09:16] LABS: Vitamin B12 1019 pg/mL (200-900)
[2024-08-24 04:52] LABS: Hepatitis B Surface Ab Qnt <5 mIU/mL (> OR = 10)
[2024-08-24 08:21] LABS: HBS Num1 0.79 mIU/mL (0-7.99); HBc Num1 0.11 S/CO (0.00-0.79); HBsAGNum1 0.29 S/CO (0.00-0.99); HIV AB/AG Nonreactive (Nonreactive); HIV Num 1 0.07 S/CO (0.00-0.99); Hepatitis B Core Antibody Nonreactive (Nonreactive); Hepatitis B Surface Antigen Negative (Negative); ~HepC Num1 0.16 S/CO (0.00-0.79); ~Hepatitis B Surface Antibody NONREACTIVE (Nonreactive); ~Hepatitis C Antibody Nonreactive (Nonreactive)
[2024-08-25 12:24] LABS: Mitochondrial Antibodies NEGATIVE (NEGATIVE)
[2024-08-25 17:37] LABS: Transglutaminase IgA <1.0 U/mL
[2024-08-26 15:23] LABS: Anti Nuclear Antibody Screen NEGATIVE (NEGATIVE)
[2024-08-26 15:29] LABS: Smooth Muscle Antibody <20 U (<20)
[2024-08-28 16:53] LABS: VITAMIN D (1,25 OH) D3 35 pg/mL; Vit D (1,25-Dihydroxy) Total 45 pg/mL (18-72); Vitamin D (1,25 OH) D2 10 pg/mL
== END 2024-08-22 07:14 | disposition home or self-care (01) ==
LOC: HO.LAB 07:13
PROVIDERS: PCP Family Medicine; Visit Provider Nurse Practitioner Family
DX: R63.4 Abnormal weight loss (principal); K21.9 Gastro-esophageal reflux disease without esophagitis; Z13.1 Encounter for screening for diabetes mellitus
CPT/HCPCS: 36415; 80053; 82607; 82652; 82746; 83036; 83540; 85025; 86015; 86038; 86317; 86364; 86381; 86704; 86706; 86803; 87340; 87389

== ENCOUNTER 2024-08-29 07:56 | Outpatient (REF) | payer OTHER, SELFPAY | END 2024-08-29 07:57 | disposition home or self-care (01) | LOC: HO.XRAY 07:56 | PROVIDERS: PCP Family Medicine; Visit Provider Nurse Practitioner Family | DX: R63.4 Abnormal weight loss (principal); Z87.891 Personal history of nicotine dependence | CPT/HCPCS: 71046 ==

== ENCOUNTER → 2024-08-29 08:00 | Outpatient (BNV) | payer OTHER, SELFPAY | PROVIDERS: PCP Family Medicine; Visit Provider Radiology Diagnostic Radiology | DX: R63.4 Abnormal weight loss (principal) | CPT/HCPCS: 71046 ==

== ENCOUNTER 2024-10-09 14:43 | Outpatient (REF) | payer OTHER, SELFPAY ==
--- NOTE | ~2024-10-09 | CT_ITS ---
CLINICAL HISTORY: R10.12 - Left upper quadrant pain CT abdomen and pelvis with contrast Comparison: None Findings: The visualized portions of the lungs are normal in appearance. The liver is normal in size without suspicious focal hepatic lesions. No intrahepatic or extrahepatic ductal dilatation is seen. The hepatic and portal veins are patent. No calcified gallstones in the gallbladder. Pancreas, spleen and adrenals are normal in appearance. No suspicious focal lesion of the kidneys. No hydronephrosis or calculi. The abdominal aorta demonstrates no evidence of aneurysmal dilatation or dissection. There are food debris within the stomach. Contrast filling defects in the stomach. Heterogeneous contrast enhancement of the gastric antrum. Moderate amount of fecal material within the colon. Bowel wall thickening of the descending colon. No evidence of bowel obstruction. No evidence of acute appendicitis. The pelvic organs are within normal limits. No intraperitoneal free air or fluid is visualized. No pathologic lymphadenopathy is seen. There are no osseous or soft tissue abnormalities. IMPRESSION: Contrast filling defects in the stomach likely represent food debris. Heterogeneous contrast enhancement of the gastric antrum. Correlation with EGD findings as indicated. Bowel wall thickening of the descending colon could be due to nondistention. Colitis can not be excluded. Correlation with colonoscopy findings as indicated. This document has been electronically signed by: Kimberly Melgoza MD on 10/12/2024 15:47:42
--- OUTSIDE RECORDS SUMMARY | 2024-10-09 14:46 | XMS_ITS | Continuity of Care Document ---
Author Organization [facility] [address] [place] [address] Phone [phone] Care Team Providers Care Professor Of Early Childhood Education Name Role Phone Larry Borjas MD Care Team Information Recei samantha [phone] Problems Active Problems Provider Date Hypothyroidism Constantin [...] SIG Qnty Indications Ordering Provider Date Dicyclomine [id number] Capsules 1 tab ac 60caps Constantin Gage M.D. 12/11/2021 [id number] Tablets 1 by mouth 6 days a week Constantin Gage M.D. 11/26/2021 Vital Signs Date Vital Result Comment 12/11/2021 2:24pm BP Systolic 130 mmHg BP Diastolic 80 mmHg Heart Rate 96 /min Height 62 inches 5'2 Weight 108.00 lb BMI (Body Mass Index) 19.8 kg/m2 Results Test Acquired Date Facility Test Result H/L Range N ote TSH With Reflex To FT4 03/09/2023 [facility] TSH With Reflex To FT4 2.39 uIU/mL (0.4-4.2) TSH 01/05/2023 [facility] TSH Duplicate Order TSH With Reflex To FT4 01/05/2023 [facility] TSH With Reflex To FT4 2.24 uIU/mL (0.4-4.2) Medical Devices Description No Information Available Encounters Type Date Location Provider Dx Diagnosis Office Visit 12/11/2021 2:15p Main Office Constnatin Gage M.D. E03.9 Hypothyroidism, unspecified R63.4 Abnormal [...]
[2024-10-09] MEDS: iohexoL 350 MG/ML 100 ML INFUS..BTL IV (15:17)
[2024-10-09 17:52] LABS: Creatinine POC 0.8 mg/dL (0.5-1.4)
[2024-10-09 17:53] LABS: GFR POC > 60
== END 2024-10-09 14:44 | disposition home or self-care (01) ==
LOC: HO.CT 14:43
PROVIDERS: PCP Family Medicine; Visit Provider Nurse Practitioner Family
DX: R10.12 Left upper quadrant pain (principal)
CPT/HCPCS: 74177; 82565; Q9967

== ENCOUNTER → 2024-10-09 14:45 | Outpatient (BNV) | payer OTHER, SELFPAY | PROVIDERS: PCP Family Medicine; Visit Provider Nuclear Medicine | DX: R10.12 Left upper quadrant pain (principal) | CPT/HCPCS: 74177 ==

== ENCOUNTER 2024-10-24 07:10 | Outpatient (REF) | payer OTHER, SELFPAY ==
--- OUTSIDE RECORDS SUMMARY | 2024-10-24 07:13 | XMS_ITS | Continuity of Care Document ---
Author Organization [facility] [address] [place] [address] Phone [phone] Care Team Providers Care Porter Marina Name Role Phone Larry Borjas MD Care Team Information Recei samantha [phone] Problems Active Problems Provider Date Hypothyroidism Constantin Gage M.D. Onset: Dysthymia Constantin Gage M.D. Onset: Hypothyroidism following radioiodine therapy Jorge Gage M.D. Onset: 12/11/2021 Irritable bowel syndrome Constantin Gage M.D. O nset: 12/11/2021 Anxiety state Constantin Gage M.D. Onset: 05/2021 Weight decreased Constantin Gage M.D. Onset: Social History Type Date Description Comments Sex Female Sex Unknown ETOH Use Denies alcohol use Tobacco Use Start: Unknown End: Unknown Patient is a former smoker Medications Active Medications SIG Qnty Indications Ordering Provider Date Dicyclomine [id number] Capsules 1 tab ac 60caps Constantin Gage M.D. 12/11/2021 [id number] Tablets 1 by mouth 6 days a week Constantin Gage M.D. 11/26/2021 Vital Signs Date Vital Result Comment 12/11/2021 2:24pm BP Systolic 130 mmHg BP Diastolic 80 mmHg Heart Rate 96 /min Height 62 inches 5'2 Weight 108.00 lb BMI (Body Mass Index) 19.8 kg/m2 Results Test Acquired Date Facility Test Result H/L Range N ote TSH With Reflex To FT4 03/09/2023 [facility] TSH With Reflex To FT4 2.39 uIU/mL (0.4-4.2) TSH 01/05/2023 [facility] TSH Duplicate Order TSH With Reflex To FT4 01/05/2023 [facility] TSH With Reflex To FT4 [...]
[2024-10-24 08:15] LABS: Cortisol Random 7.5 ug/dL
[2024-10-24 08:22] LABS: Free T4 (Free Thyroxine) 1.38 ng/dL (0.71-1.85)
== END 2024-10-24 07:11 | disposition home or self-care (01) ==
LOC: HO.LAB 07:10
PROVIDERS: PCP Family Medicine; Visit Provider Internal Medicine Endocrinology, Diabetes & Metabolism
DX: E89.0 Postprocedural hypothyroidism (principal); R63.4 Abnormal weight loss
CPT/HCPCS: 36415; 82533; 84439; 84443

== ENCOUNTER 2024-12-15 17:23 | Emergency (ER) | payer OTHER, SELFPAY ==
--- NOTE | ~2024-12-15 | CT_ITS ---
CLINICAL HISTORY: LLQ pain? Divericulitis CT abdomen and pelvis with contrast Comparison: 10/09/2024 Findings: Lung bases are clear. No acute bony abnormalities. Mild nonspecific stranding left peritoneal fat. Underlying small bowel wall thickening noted. Findings may represent an acute enteritis pattern. No significant bowel distention noted. Liver and spleen within normal limits. Pancreas and adrenal glands unremarkable. Gallbladder is within normal limits. No significant focal renal abnormalities. No renal stones or hydronephrosis. Abdominal aorta is normal in caliber. No free fluid or adenopathy in the pelvis. No diverticulitis. Appendix unremarkable. Uterus normal size. No adnexal abnormality. Impression: Probable acute enteritis pattern left abdomen This document has been electronically signed by: Mateusz Bhakta MD on 12/15/2024 20:21:49
[2024-12-15 17:38] VITALS: BP 141/75; BP 158/82; PULSE 76; PULSE 77; RESP 18; TEMP 36.8; O2SAT 100; O2SAT 99; BMI 20.7
--- NOTE | 2024-12-15 17:45 | ED.ABDPAIN ---
HPI - Abdominal Pain General Chief Complaint: Abdominal Pain Stated Complaint: abd pain, vomiting Time Seen by Provider: 12/15/24 17:42 Source: patient Mode of arrival: ambulatory Limitations: no limitations History of Present Illness ED Provider: HPI narrative: Patient otherwise healthy complaining of pain lower abdomen since yesterday and been vomiting since then no diarrhea no constipation no fever no chills patient apparently had left over meat yesterday morning no other family member sick Related Data Home Medications ?Medication ?Instructions ?Recorded ?Confirmed acetaminophen 500 mg tablet 1,000 mg PO DAILY PRN Pain 06/09/23 08/01/23 cyclobenzaprine 10 mg tablet 10 mg PO DAILY PRN muscle spasm 06/09/23 08/01/23 eszopiclone 3 mg tablet 3 mg PO BEDTIME 06/09/23 08/01/23 levothyroxine 100 mcg tablet 100 mcg PO SUTUWETHFRSA 06/09/23 08/01/23 (Levoxyl) Previous Rx's ?Medication ?Instructions ?Recorded ondansetron 4 mg disintegrating 4 mg PO Q6H PRN nausea and 04/30/22 tablet vomiting #14 tabs qmtghuyhoa-vqjweulvbzflf-wlydpxxc 1 cap PO Q8H PRN headache #20 caps 06/10/23 50 mg-300 mg-40 mg capsule (Fioricet) fluticasone propionate 50 2 spray intranasal DAILY PRN 08/18/24 mcg/actuation nasal allergy symptoms #16 grams spray,suspension omeprazole 40 mg capsule,delayed 40 mg PO DAILY #90 caps 08/18/24 release barium sulfate 2 % (w/v) oral 450 ml PO .COMPLEX #900 mL 09/04/24 suspension (Readi-Cat 2) ondansetron 4 mg disintegrating 4 mg PO Q6-8H PRN nausea and 12/15/24 tablet vomiting #7 tabs Allergies Allergy/AdvReac Type Severity Reaction Status Date / Time Penicillins (PENICILLINS) Allergy Unknown DIFF Verified 12/15/24 17:48 BREATHING prochlorperazine (From AdvReac Muscle Verified 12/15/24 21:44 Compazine) cramps Review of Systems Review of Systems Yes all other systems are reviewed and are negative PMFSH Past Medical History Medical History Opioid abuse LUQ abdominal pain Former smoker, stopped smoking many years ago Schatzki's ring of distal esophagus IBS (irritable bowel syndrome) Alcohol use disorder Insomnia Graves disease Surgical History Hx of colonoscopy History of esophagogastroduodenoscopy (EGD) Social History Social History Household Members: Spouse Housing: House Do you presently have visiting nurse or other home services: No Alcohol intake: never Comment: PT REFUSED Patient Tobacco Use Status: Former Tobacco user Tobacco use type: Cigarette Years Smoked: 15 Smoked in Last 30 Days: No e-Cigarette/Vaping Use: Never Used Advance Directives: Yes Advance Directives on File: Yes Advance Directives Date on File: 06/11/23 service: No Physical Exam ED Vital Signs: Vital Signs - 24 hr 12/15/24 17:38 12/15/24 21:37 Temperature 98.2 F Pulse Rate 76 107 H Respiratory Rate 18 24 H Blood Pressure 158/82 H 159/92 H Pulse Oximetry 99 97 Oxygen Delivery Method Room Air Room Air BMI result Body Mass Index 20.7 Appearance: Alert. Oriented X3. No acute distress. Eyes: No pallor or icterus ENT: Pharynx normal. Oral Mucosa moist Neck: Normal inspection. Neck supple. CVS: Normal heart rate and rhythm. Pulses normal. Respiratory: No respiratory distress. Equal air entry bilateral, no wheezing/rales/rhonchi Abdomen: Soft and diffuse tenderness left lower quadrant no rebound tenderness or guarding. Bowel sounds are present, no mass palpable, no CVA tenderness Skin: Skin warm and dry. Normal skin color. Normal skin turgor. Extremities: No lower extremity edema. No calf tenderness Neuro: Oriented X 3. Medical Decision Making Medical Decision Making MDM Narrative: Patient has acute nausea vomiting possibly after eating bad food left over meat feeling much better after IV fluids taking p.o. in the ER normal white counts CT scan negative for diverticulitis shows enteritis Differential Diagnosis Differential Diagnoses: The differential diagnosis associated with the presentation includes Diverticulitis/colitis/enteritis Lab Data MDM Lab Attestation statement: I reviewed the patient's lab results. 12/15/24 18:31 12/15/24 18:31 Labs: Lab Results 12/15/24 12/15/24 Range/Units 18:31 20:28 WBC 6.3 (4.8-10.8) X10*3/uL RBC 4.14 L (4.20-5.50) X10*6/uL Hgb 12.7 (12.0-16.0) g/dl Hct 36.6 L (37.0-47.0) % MCV 88.4 (80.0-98.0) fL MCH 30.7 (27.0-33.0) pg MCHC 34.7 (31.0-35.0) g/dl RDW 11.9 (11.0-16.0) % Plt Count 172 (160-400) X10*3/uL MPV 11.4 (9.4-12.3) fL Immature Gran % (Auto) 0.3 (0.0-0.4) % Neut % (Auto) 66.9 (45-73) % Lymph % (Auto) 20.7 (20-40) % [place] % (Auto) 11.0 (2-11) % Eos % (Auto) 0.6 (0-4) % Baso % (Auto) 0.5 (0-2) % Lymph # (Auto) 1.3 (1.2-4.9) X10*3/uL [place] # (Auto) 0.7 (0.1-1.2) X10*3/uL Eos # (Auto) 0.0 (0.0-0.4) X10*3/uL Baso # (Auto) 0.0 (0.0-0.2) X10*3/uL Abs Immat Gran (auto) 0.02 (0.00-0.03) X10*3/uL Absolute Neuts (auto) 4.2 (2.0-8.3) x10*3/uL Absolute Nucleated RBC 0.000 (0.0-0.012) X10*3/uL Nucleated RBC % (auto) 0.0 (0.0-0.2) /100WBC Sodium 139 (135-145) mmol/L Potassium 3.5 (3.3-5.1) mmol/L Chloride 108 (96-108) mmol/L Carbon Dioxide 23 (22-29) mmol/L Anion Gap 12 (12-20) BUN 17 H (9-16) mg/dL Creatinine 0.77 (0.5-1.4) mg/dL Estim Creat Clear Calc 57.9 Estimated GFR > 60 Random Glucose 110 (60-115) mg/dL Calcium 8.8 (8.4-10.2) mg/dL Total Bilirubin 0.8 (0.0-1.0) mg/dL AST 24 (5-31) U/L ALT 24 (0-31) U/L Alkaline Phosphatase 43 (39-117) U/L Total Protein 6.7 (6.5-8.0) g/dL Albumin 4.1 (3.5-5.0) g/dL Urine Color Yellow Urine Appearance Clear Urine pH 7.5 (5.0-9.0) Ur Specific [place] >= 1.030 H (1.005-1.025) Urine Protein Negative (Neg-Trace) mg/dL Urine Glucose (UA) Negative (Negative) mg/dL Urine Ketones Trace (Negative) mg/dL Urine Blood Trace H (Negative) Urine Nitrite Negative (Negative) Ur Leukocyte Esterase Small (1+) H (Negative) Urine RBC 0-2 (0-2) /HPF Urine WBC 0-5 (0-5) /HPF Ur Squamous Epith Cells 0-2 (0-2) /HPF Urine Bacteria None Seen (None Seen) Hyaline Casts 0-2 (0-2) /LPF COVID-19 (YUMIKO) Negative (Negative) COVID-19 Clin Com See Note Independent Interpretation I performed an independent interpretation of an: CT Scan Radiology Impression Discussion of test interpretation with radiology: I have reviewed the radiologist's reading. Radiologist Impression: [place] [address] CT Scan Report Signed Patient: Judi Whitney MR#: [id number] : 1965 Acct:[id number] Age/Sex: 59 / F ADM Date: 12/15/24 Loc: .ED Attending Dr: Ordering Physician: Rosalio Johnson MD Date of Service: 12/15/24 Procedure(s): CT abdomen pelvis w IV con Accession Number(s): [id number] cc: Dion Ocampo MD; Rosalio Johnson MD~ Report Number: [id number]: Total DLP = 262.00 mGy-cm CLINICAL HISTORY: LLQ pain? Divericulitis CT abdomen and pelvis with contrast Comparison: 10/09/2024 Findings: Lung bases are clear. No acute bony abnormalities. Mild nonspecific stranding left peritoneal fat. Underlying small bowel wall thickening noted. Findings may represent an acute enteritis pattern. No significant bowel distention noted. Liver and spleen within normal limits. Pancreas and adrenal glands unremarkable. Gallbladder is within normal limits. No significant focal renal abnormalities. No renal stones or hydronephrosis. Abdominal aorta is normal in caliber. No free fluid or adenopathy in the pelvis. No diverticulitis. Appendix unremarkable. Uterus normal size. No adnexal abnormality. Impression: Probable acute enteritis pattern left abdomen This document has been electronically signed by: Mateusz Bhakta MD on 12/15/2024 20:21:49 Medications Administered Discontinued Medications Generic Name Dose Route Start Last Admin Trade Name Freq PRN Reason Stop Dose Admin Diphenhydramine HCl 25 mg 12/15/24 21:34 12/15/24 21:38 Diphenhydramine Hcl 50 Mg/Ml Vial IVPUSH 12/15/24 21:35 25 mg ONCE ONE Administration Sodium Chloride 1,000 mls @ 999 mls/hr 12/15/24 17:55 12/15/24 21:17 Ns IV 12/15/24 18:55 Infused .Q1H1M ONE Infusion Iohexol 100 ml 12/15/24 19:25 12/15/24 19:26 Iohexol 350 Mg/Ml 100 Ml Infus..Btl IV 12/15/24 19:26 85 ml ONCE ONE Administration Morphine Sulfate 4 mg 12/15/24 17:56 12/15/24 18:20 Morphine Sulfate 4 Mg/Ml Cartridge IVPUSH 12/15/24 17:57 4 mg ONCE ONE Administration Protocol Ondansetron HCl 4 mg 12/15/24 17:55 12/15/24 18:20 Ondansetron Hcl 4 Mg/2 Ml Vial IVPUSH 12/15/24 17:56 4 mg ONCE ONE Administration Prochlorperazine Edisylate 10 mg 12/15/24 21:05 12/15/24 21:14 Prochlorperazine Edisylate 10 Mg/2 Ml Vial IVPUSH 12/15/24 21:06 10 mg ONCE ONE Administration Discharge Plan Discharge Clinical Impression: Gastroenteritis Patient Disposition: Home, Self-Care Instructions: Acute Nausea and Vomiting (ED) Additional Instructions: Drink plenty of fluids Nausea medication as prescribed Follow with the PCP Report to ER if not better Prescriptions: New ondansetron 4 mg tablet,disintegrating 4 mg PO Q6-8H PRN (Reason: nausea and vomiting) Qty: 7 0RF No Action Readi-Cat 2 2 % (w/v) suspension 450 ml PO .COMPLEX Qty: 900 0RF Rx Instructions: 2 hours before your appointment drink the 1st Bottle (450 ml) of the READI-CAT 2, 1 hour before your appointment drink the 2nd bottle (450 ml) of the READI-CAT 2 ondansetron 4 mg tablet,disintegrating 4 mg PO Q6H PRN (Reason: nausea and vomiting) Qty: 14 0RF cyclobenzaprine 10 mg tablet 10 mg PO DAILY PRN (Reason: muscle spasm) levothyroxine [Levoxyl] 100 mcg tablet 100 mcg PO SUTUWETHFRSA eszopiclone 3 mg tablet 3 mg PO BEDTIME acetaminophen 500 mg Tablet 1,000 mg PO DAILY PRN (Reason: Pain) [id number]-[id number]-aybj [Fioricet] 50-300-40 mg capsule 1 cap PO Q8H PRN (Reason: headache) Qty: 20 1RF omeprazole 40 mg capsule,delayed release(DR/EC) 40 mg PO DAILY Qty: 90 1RF fluticasone propionate 50 mcg/actuation spray,suspension 2 spray intranasal DAILY PRN (Reason: allergy symptoms) Qty: 16 0RF Print Language: Nepali
--- OUTSIDE RECORDS SUMMARY | 2024-12-15 17:50 | XMS_ITS | Continuity of Care Document ---
Author Organization [facility] [address] [place] [address] Phone [phone] Care Team Providers Care Boomboat Operator Name Role Phone Larry Borjas MD Care Team Information Recei samantha [phone] Problems Active Problems Provider Date Hypothyroidism Constantin [...] SIG Qnty Indications Ordering Provider Date Dicyclomine [id number] Capsules 1 tab ac 60caps Constantin Gage M.D. 12/11/2021 [id number] Tablets 1 by mouth 6 days a week Constantin Gage M.D. 11/26/2021 Vital Signs Date Vital Result Comment 12/11/2021 2:24pm BP Systolic 130 mmHg BP Diastolic 80 mmHg Heart Rate 96 /min Height 62 inches 5'2 Weight 108.00 lb BMI (Body Mass Index) 19.8 kg/m2 Results Test Acquired Date Facility Test Result H/L Range N ote TSH With Reflex To FT4 03/09/2023 [facility] TSH With Reflex To FT4 2.39 uIU/mL (0.4-4.2) TSH 01/05/2023 [facility] TSH Duplicate Order TSH With Reflex To FT4 01/05/2023 [facility] TSH With Reflex To FT4 [...]
[2024-12-15 18:42] LABS: MANUAL DIFF FLAG NO
[2024-12-15 18:44] LABS: Hematocrit 36.6 % (37.0-47.0); Hemoglobin 12.7 g/dl (12.0-16.0); Imm Gran Abs Auto 0.02 X10*3/uL (0.00-0.03); Imm Gran Pct Auto 0.3 % (0.0-0.4); Lymphocytes Absolute Auto 1.3 X10*3/uL (1.2-4.9); Mean Corpuscular HGB Conc 34.7 g/dl (31.0-35.0); Mean Corpuscular Hemoglobin 30.7 pg (27.0-33.0); Mean Corpuscular Volume 88.4 fL (80.0-98.0); NRBC Abs Auto 0.000 X10*3/uL (0.0-0.012); NRBC Pct Auto 0.0 /100WBC (0.0-0.2); Platelet Count 172 X10*3/uL (160-400); Red Blood Count 4.14 X10*6/uL (4.20-5.50); White Blood Count 6.3 X10*3/uL (4.8-10.8)
[2024-12-15 18:56] LABS: Alanine Aminotransferase 24 U/L (0-31); Albumin Level 4.1 g/dL (3.5-5.0); Alkaline Phosphatase 43 U/L (39-117); Anion Gap 12 (12-20); Aspartate Amino Transferase 24 U/L (5-31); Blood Urea Nitrogen 17 mg/dL (9-16); Calcium 8.8 mg/dL (8.4-10.2); Carbon Dioxide 23 mmol/L (22-29); Chloride 108 mmol/L (96-108); Creatinine Clr Calc Pharmacy 57.9; Estimated Glomerular Filt Rate > 60; Potassium 3.5 mmol/L (3.3-5.1); Sodium 139 mmol/L (135-145); Total Protein 6.7 g/dL (6.5-8.0)
[2024-12-15 18:57] LABS: COVID-19 Test Negative (Negative); IDNOW Serial# 55D5AD1C
[2024-12-15] MEDS: iohexoL 350 MG/ML 100 ML INFUS..BTL IV (19:26)
[2024-12-15 20:35] LABS: Appearance Urine Clear; Glucose Urine UA Negative (Negative); PH 7.5 (5.0-9.0); Specific Gravity - Urine >= 1.030 (1.005-1.025); UMIC TRIGGER UACC YES
[2024-12-15 20:46] LABS: UACC Culture Trigger YES
[2024-12-15 21:37] VITALS: BP 159/92; PULSE 107; RESP 24; O2SAT 97
--- NOTE | 2024-12-15 21:37 | PC.NURSE ---
This nurse called to the room as pt appears to be having a reaction to Compazine. Pt aox4, tachypneic, breaths even and unlabored, anxious, Sinus tach on monitor. MD at bedside reports pt having a distonia reaction to compazine. Pt given Benadryl 25mg IV with good effect. VSS. Involuntary muscle contractions subsided.
[2024-12-15 23:13] VITALS: BP 159/92; PULSE 107; RESP 24; TEMP -17.7; TEMP 0; O2SAT 97
--- NOTE | 2024-12-15 23:20 | PC.NURSE ---
RN was going to get pt a wheelchair since she was a bit unsteady on her feet after the benadryl- however pt walked out with and did not wait for wheelchair.
== END 2024-12-15 23:20 | disposition home or self-care (01) ==
PROVIDERS: Emergency Provider Internal Medicine; PCP Family Medicine
DX: K52.9 Noninfective gastroenteritis and colitis, unspecified (principal); R10.30 Lower abdominal pain, unspecified
CPT/HCPCS: 74177; 80053; 81001; 85025; 87086; 87635; 96361; 96374; 96375; 99284; J0737; J1200; J2270; J2405; Q9967

== ENCOUNTER → 2024-12-15 17:55 | Outpatient (BNV) | payer OTHER, SELFPAY | PROVIDERS: Emergency Provider Internal Medicine; PCP Family Medicine; Visit Provider Radiology Diagnostic Radiology | DX: R10.32 Left lower quadrant pain (principal) | CPT/HCPCS: 74177 ==

== ENCOUNTER 2025-01-16 09:25 | Outpatient (REF) | payer OTHER, SELFPAY ==
--- OUTSIDE RECORDS SUMMARY | 2025-01-16 09:28 | XMS_ITS | Encounter Summary ---
Author Organization [facility] Address [address] [place] [phone] Phone Care Team Providers Care Salvage Engineering Technician Name Role Phone Larry Borjas MD Primary Care Provide r Dion Ocampo MD Primary Care Provider + Encounter Details Date Type Department Care Team (Late st Contact Info) Description 10/28/2019 Procedure Pass [facility], Ct Scan - [address] [address] Social History Tobacco Use Types Packs/Day Years Used Date Smoking Tobacco: Never Smokeless Tobacco: Never Alcohol Use Standard Drinks/Week Comments Never 0 (1 standard drink = 0.6 oz pur e alcohol) Comments Unknown Sex and Gender Information Value Date Recorded Sex Assigned at Female 08/31/2018 7:18 AM EDT Legal Sex Female 9:38 AM EDT Gender Identity Female 08/31/2018 7:18 AM EDT Sexual Orientation Straight 08/31/2018 7: 18 AM EDT documented as of this encounter Plan of Treatment Upcoming Encounters Date Type Department Care Team (Late st Contact Info) Description 03/17/2025 8:20 AM EST Office Visit [facility] [address] [place] [address] Nuha Boss MD [address] [place] [address] documented as of this encounter Visit Diagnoses Not on filedocumented in this encounter Care Teams Salvage Engineering Technician Relationship Specialty Start Date End Date Larry Borjas MD PCP - General Internal Medicine 08/31/18 03/12/24 Dion Ocampo MD [address] [place] [address] PCP - General Family Medicine 03/13/24 documented as of this encounter Additional Source Comments The information contained in this document represents components of the legal health record. It is not the complete legal health record.[facility]
--- OUTSIDE RECORDS SUMMARY | 2025-01-16 09:28 | XMS_ITS | Clinical Summary ---
Author Organization [facility] Address [address] [place] [address] Phone Care Team Providers Care Business Services Sales Representative Name Role Phone Dion Ocampo MD Primary Care Provider + Allergies Active Allergy Reactions Criticality Noted Date Comments Penicillins Hives,Shortness Of Breath High 9 Pravastatin 03/13/2024 achy Rosuvastatin 03/13/2024 aches Medications levothyroxine (SYNTHROID, LEVOTHROID) 100 MCG tablet Take 100 mcg by mouth as directed. Take 6 days a week Active eszopiclone (LUNESTA) 3 mg tablet Take 2 mg by mouth nightly at bedtime. Take immediately before bedtime Active mometasone (ELOCON) 0.1 % cream APPLY A THIN FILM TOPICALLY TO AFFECTED AREAS TWICE DAILY Active cyclobenzaprine (FLEXERIL) 10 MG tablet Take by mouth as needed. 3 Active omeprazole (PRILOSEC) 20 MG tablet Take 20 mg by mouth daily. Active omega-3s/dha/ep a/fish oil (OMEGA 3 ORAL) Take by mouth. Active b complex vitamins capsule Take 1 capsule by mouth daily. Active multivit-minera ls/folic acid (ONE-A-DAY WOMEN'S 50 PLUS ORAL) Take by mouth once a week. Active Active Problems Problem Noted Date Diagnosed Date Fibromyalgia 03/13/2024 GERD (gastroesophageal reflux disease) 4 Seasonal allergic rhinitis 03/13/2024 Weight loss 03/13/2024 Assessment & Plan (03/13/2024 10:29 AM EDT): Will evaluate for potential adrenal insufficiency - to check fasting cortisol, 8-9 am. Dry mouth and eyes 03/13/2024 Assessment & Plan (03/13/2024 10:29 AM EDT): Will check antibodies for sjogrens. Anxiety state 12/11/2021 Irritable bowel syndrome 12/11/2021 Dysthymia 11/26/2021 Left shoulder pain 02/25/2018 Postablative hypothyroidism Assessment & Plan (03/13/2024 10:28 AM EDT): 59 y.o. woman with hypothyroidism following SCHMIDT for Graves', many years ago. Has been maintained on LT4 since. She reports good consistency taking rx regularly. She is on a B-complex with biotin. There has been some fluctuation in her levels, ? Related to weight chagnes vs biotin vs other. Will repeat labs off of biotin for 5-7 days & adjust rx as appropriate. To message me when done so we can obtain results. If we adjust rx, will repeat ~ 6-8 weeks later. If levels normal, will continue current & repeat in 6-12 months, sooner prn symptoms concerning for thyroid levels being off (unexplained change in energy, weight, or bowels or feeling too cold or too warm) or more than 10 pound change in weight. Resolved Problems Problem Noted Date Diagnosed Date Resolved Date Hypothyroid 03/13/2024 03/13/2024 Hypothyroidism following radioiodine therapy 2 03/13/2024 Encounters Date Type Department Care Team Description 10/27/2024 Orders Only [facility] [address] [place] [address] Linda Daniel MA Weight loss; Hypothyroidism following radioiodine therapy 10/20/2024 Telephone [facility] [address] [place] [address] Nuha Boss MD TSH & Cortisol testing (TSH & Cortisol testing) from Last 3 Months Family History Medical History Relation Comments Cancer Father Burkitts Lymphom a Coronary artery disease Father Dementia Maternal Grandmother Dementia Mother Hypertension Mother Transient ischemic attack Mother ALS Paternal Grandmother Thyroid disease Neg Hx Relation Status Comments Father Alive Maternal Grandmother Mother Paternal Grandmother Social History Tobacco Use Types Packs/Day Years Used Date Smoking Tobacco: Never Smokeless Tobacco: Never Alcohol Use Standard Drinks/Week Comments Never 0 (1 standard drink = 0.6 oz pur e alcohol) Education Answer Date Recorded Are you interested in more education? Not on ken e 09/07/2022 Are you concerned about learning? Not on file 09/07/2022 No 09/07/2022 No 09/07/2022 Digital Access Answer Date Recorded No 10/06/2022 No 10/06/2022 Reliable internet access at home? Not on file 10/06/2022 Device with a working camera? Not on file Comments Unknown Sex and Gender Information Value Date Recorded Sex Assigned at Female 08/31/2018 7:18 AM EDT Legal Sex Female 9:38 AM EDT Gender Identity Female 08/31/2018 7:18 AM EDT Sexual Orientation Straight 08/31/2018 7: 18 AM EDT Last Filed Vital Signs Vital Sign Reading Time Taken Comments Blood Pressure 110/60 03/13/2024 9:30 AM EDT Pulse 55 03/13/2024 9:30 AM EDT Temperature 37 C (98.6 F) 10/28/2019 3:21 PM EDT Respiratory Rate 18 10/28/2019 3:21 PM EDT Oxygen Saturation 98% 03/13/2024 9:30 AM EDT Inhaled Oxygen Concentration - - Weight 47.7 kg (105 lb 3.2 oz) 03/13/2024 9:30 A M EDT Height 157.1 cm (5' 1.85 ) 03/13/2024 9:30 AM ED T Body Mass Index 19.33 03/13/2024 9:30 AM EDT Plan of Treatment Upcoming Encounters Date Type Department Care Team (Late st Contact Info) Description 03/17/2025 8:20 AM EST Office Visit [facility] [address] [place] [address] [place] [address] Nuha Boss MD [address] [place] [address] Health Maintenance Due Date Last Done Comments Adult Td,Tdap Booster 1965 LIPID PANEL 1965 DEPRESSION SCREENING 1975 HEPATITIS C SCREENING 1981 HIV ONE-TIME SCREENING (18-65 YEARS) 1981 PAP SMEAR 02/05/1984 MAMMOGRAM 2003 COLOGUARD 02/05/2008 COLONOSCOPY 02/05/2008 COLORECTAL CANCER SCREENING 02/05/2008 FIT TEST 02/05/2008 FOBT 02/05/2008 SIGMOIDOSCOPY 02/05/2008 VIRTUAL COLONOSCOPY 02/05/2008 PNEUMOCOCCAL VACCINES (50+ years) (1 of 1 - PCV) 2013 ZOSTER VACCINES (2 of 2) 02/17/2021 12/23/2020 INFLUENZA VACCINE (#1) 2024 02/07/2019 COVID-19 VACCINE (3 - 2024- season) 2025 11/04/2020, 10/07/2020 TSH LEVEL 10/24/2025 10/24/2024, 04/0 09/2024, 06/01/2024, Additional history exists RSV VACCINE (1 - 1-dose 75+ series) 2038 SMOKING STATUS SCREENING (Once After 26 Yrs) Completed 10/28/2019 HEPATITIS A VACCINES Aged Out No long er eligible based on patient's age to complete this topic HIB VACCINES Aged Out No longer eligi ble based on patient's age to complete this topic MENINGOCOCCAL VACCINES (ACWY) Aged Out No longer eligible based on patient's age to complete this topic MENINGOCOCCAL VACCINES (B) Aged Out N o longer eligible based on patient's age to complete this topic Medical Devices Not on file Procedures Procedure Name Priority Date/Time Associated Diagnosis Comments CORTISOL AM Routine 10/24/2024 8:05 AM EDT Weight loss FREE T4 Routine 10/24/2024 8:05 AM EDT Hypothyroidism following radioiodine therapy TSH Routine 10/24/2024 8:05 AM EDT Hypothyroidism following radioiodine therapy from Last 3 Months Results * Cortisol AM (10/24/2024 8:05 AM EDT) Blood Nuha Boss MD LAB BLOOD ORDERABLES F inal Result Performing Organization Address City/[facility]/ZIP Co de Phone Number [address] [address] * Free T4 (10/24/2024 8:05 AM EDT) Blood Nuha Boss MD LAB BLOOD ORDERABLES F inal Result Performing Organization Address City/[facility]/ZIP Co de Phone Number [address] [address] * TSH (10/24/2024 8:05 AM EDT) Blood Nuha Boss MD LAB BLOOD ORDERABLES F inal Result Performing Organization Address [facility]/ZIP Co de Phone Number [address] [address] from Last [address] [place], [place] [address]O O O O O O O O Care Teams Business Services Sales Representative Relationship Specialty Start Date End Date Dion Ocampo MD [address] [place] [address] PCP - General Family Medicine 03/13/24 Additional Source Comments The information contained in this document represents components of the legal health record. It is not the complete legal health record.[facility]
--- OUTSIDE RECORDS SUMMARY | 2025-01-16 09:28 | XMS_ITS | Continuity of Care Document ---
Author Organization [facility] [address] [place] [address] Phone [phone] Care Team Providers Care Deputy Fire Chief Name Role Phone Larry Borjas MD Care Team Information Recei samantha [phone] Problems Active Problems Provider Date Hypothyroidism Constantin [...] SIG Qnty Indications Ordering Provider Date Dicyclomine [id number] Capsules 1 tab ac 60caps Constantin Gage M.D. 12/11/2021 [id number] Tablets 1 by mouth 6 days a week Constantin Gage M.D. 11/26/2021 Vital Signs Date Vital Result Comment 12/11/2021 2:24pm BP Systolic 130 mmHg BP Diastolic 80 mmHg Heart Rate 96 /min Height 62 inches 5'2 Weight 108.00 lb BMI (Body Mass Index) 19.8 kg/m2 Results Test Acquired Date Facility Test Result H/L Range N ote TSH With Reflex To FT4 03/09/2023 [facility] TSH With Reflex To FT4 2.39 uIU/mL (0.4-4.2) TSH 01/05/2023 [facility] TSH Duplicate Order TSH With Reflex To FT4 01/05/2023 [facility] TSH With Reflex To [...]
--- OUTSIDE RECORDS SUMMARY | 2025-01-16 09:28 | XMS_ITS | Encounter Summary ---
Author Organization [facility] Address [address] [place] [phone] Phone Care Team Providers Care Salesperson Driver Name Role Phone Larry Borjas MD Primary Care Provide r Dion Ocampo MD Primary Care Provider + Encounter Details Date Type Department Care Team (Late st Contact Info) Description 10/28/2019 Procedure Pass [facility], Ct Scan - [address] [address] Social History Tobacco Use Types Packs/Day Years [...] 8:20 AM EST Office Visit [facility] [address] [place] [address] Nuha Boss MD [address] [place] [address] documented as of this encounter Visit Diagnoses Not on filedocumented in this encounter Care Teams Salesperson Driver Relationship Specialty Start Date End Date Larry Borjas MD PCP - General Internal Medicine 08/31/18 03/12/24 Dion Ocampo MD [address] [place] [id number] PCP - General Family Medicine 03/13/24 documented as of this encounter Additional Source Comments The information contained in this document represents components of the legal health record. It is not the complete legal health record.[facility]
[2025-01-16 10:00] LABS: FIT1 NEGATIVE (NEGATIVE)
[2025-01-16 10:01] LABS: FIT Date 1 09/06/2025; FIT Date 2 09/06/2025; FIT2 NEGATIVE (NEGATIVE)
[2025-01-16 10:02] LABS: FIT Int Ctl YES; FIT Lot M502755
[2025-01-16 14:04] LABS: E. coli EAEC Not Detected (Not Detect.); E. coli EPEC Not Detected (Not Detect.); E. coli ETEC Not Detected (Not Detect.); E. coli STEC Not Detected (Not Detect.); Shigella sp./EIEC Not Detected (Not Detect.)
== END 2025-01-16 09:26 | disposition home or self-care (01) ==
LOC: HO.LNP 09:25
PROVIDERS: Visit Provider Nurse Practitioner Family
DX: R19.5 Other fecal abnormalities (principal)
CPT/HCPCS: 82274; 82705; 87177; 87209; 87507

== ENCOUNTER 2025-02-04 06:52 | Day surgery (SDC) | payer OTHER, SELFPAY ==
--- OUTSIDE RECORDS SUMMARY | 2025-01-25 20:34 | XMS_ITS | Encounter Summary ---
Author Organization [facility] Address [address] [place] [phone] Phone Care Team Providers Care Cutting Table Operator Name Role Phone Larry Borjas MD Primary Care Provide r Dion Ocampo MD Primary Care Provider + Encounter Details Date Type Department Care Team (Late st Contact Info) Description 10/28/2019 Procedure Pass [facility], Ct Scan - [address] [address] Social History Tobacco Use Types Packs/Day Years [...] 8:20 AM EST Office Visit [facility] [address] [place] [address] Nuha Boss MD [address] [place] [phone] documented as of this encounter Visit Diagnoses Not on filedocumented in this encounter Care Teams Cutting Table Operator Relationship Specialty Start Date End Date Larry Borjas MD PCP - General Internal Medicine 08/31/18 03/12/24 Dion Ocampo MD [address] [place] [phone] PCP - General Family Medicine 03/13/24 documented as of this encounter Additional Source Comments The information contained in this document represents components of the legal health record. It is not the complete legal health record.[facility]
--- OUTSIDE RECORDS SUMMARY | 2025-01-25 20:34 | XMS_ITS | Encounter Summary ---
Author Organization [facility] Address [address] [place] [address] Phone Care Team Providers Care Supervisor Webbing Name Role Phone Larry Borjas MD Primary Care Provide r Dion Ocampo MD Primary Care Provider + Encounter Details Date Type Department Care Team (Late st Contact Info) Description 10/28/2019 Procedure Pass [facility], Ct Scan - [address] [address] Social History Tobacco Use Types Packs/Day Years [...] 8:20 AM EST Office Visit [facility] [address] [place] [address] Nuha Boss MD [address] [place] [address] documented as of this encounter Visit Diagnoses Not on filedocumented in this encounter Care Teams Supervisor Webbing Relationship Specialty Start Date End Date Larry Borjas MD PCP - General Internal Medicine 08/31/18 03/12/24 Dion Ocampo MD [address] [place] [phone] PCP - General Family Medicine 03/13/24 documented as of this encounter Additional Source Comments The information contained in this document represents components of the legal health record. It is not the complete legal health record.[facility]
--- OUTSIDE RECORDS SUMMARY | 2025-01-25 20:34 | XMS_ITS | Clinical Summary ---
Author Organization [facility] Address [address] [place] [phone] Phone Care Team Providers Care Ladle Puller Name Role Phone Dion Ocampo MD Primary [...] Department Care Team Description 10/27/2024 Orders Only [facility] [address] [place] [address] Linda Daniel MA Weight loss; Hypothyroidism following radioiodine therapy from Last 3 Months Family History Medical [...] 8:20 AM EST Office Visit [facility] [address] [place] [address] [place] [address] Nuha Boss MD [address] [place] [address] [email or web address] Health Maintenance Due Date Last Done Comments [...] Procedure Name Priority Date/Time Associated Diagnosis Comments TSH Routine 10/24/2024 8:05 AM EDT Hypothyroidism following radioiodine therapy from Last 3 Months or Most Recently Relevant to Health Maintenance Results * TSH (10/24/2024 8:05 AM EDT) Blood Nuha Boss MD LAB BLOOD ORDERABLES F inal Result [address] [id number] from Last 3 Months or Most Recently Relevant to Health Maintenance Insurance [facility] Care Teams Ladle Puller Relationship Specialty Start Date End Date Dion Ocampo MD [address] [place] [phone] PCP - General Family Medicine 03/13/24 Additional Source Comments The information contained in this document represents components of the legal health record. It is not the complete legal health record.[facility]
--- OUTSIDE RECORDS SUMMARY | 2025-01-25 20:34 | XMS_ITS | Continuity of Care Document ---
Author Organization [facility] [address] [place] [address] Phone [phone] Care Team Providers Care Poultry Farmer Egg Name Role Phone Larry Borjas MD Care Team Information Recei samantha [phone] Problems Active Problems Provider Date Hypothyroidism Constantin [...] SIG Qnty Indications Ordering Provider Date Dicyclomine [id number] Capsules 1 tab ac 60caps Constantin Gage M.D. 12/11/2021 [id number] Tablets 1 by mouth 6 days a week Constantin Gage M.D. 11/26/2021 Vital Signs Date Vital Result Comment 12/11/2021 2:24pm BP Systolic 130 mmHg BP Diastolic 80 mmHg Heart Rate 96 /min Height 62 inches 5'2 Weight 108.00 lb BMI (Body Mass Index) 19.8 kg/m2 Results Test Acquired Date Facility Test Result H/L Range N ote TSH With Reflex To FT4 03/09/2023 [facility] TSH With Reflex To FT4 2.39 uIU/mL (0.4-4.2) TSH 01/05/2023 [facility] TSH Duplicate Order TSH With Reflex To FT4 01/05/2023 [facility] TSH With Reflex To FT4 [...]
--- NOTE | 2025-02-02 11:24 | HO.ANESPROP2 ---
Documented by User: Selene Gold NP 02/02/25 12:51 HPI - Anesthesia Eval Consult details Narrative: 59 yr old female for upper endoscopy, colonoscopy H/O ETOH abuse, in remission for 35 yrs Opioid use: denies prior opioid use entirely PMFSH Active Problems Active Problems: All Active Problems Change in stool (Acute) LUQ abdominal pain (Acute) Former smoker, stopped smoking many years ago (Acute) Graves disease (Acute) Elevated ferritin (Acute) IBS (irritable bowel syndrome) (Acute) Loose stools (Acute) Acid reflux (Acute) Weight loss (Acute) COVID-19 (Acute) COVID-19 (Acute) Past Medical History Medical History Change in stool Opioid abuse LUQ abdominal pain Former smoker, stopped smoking many years ago Schatzki's ring of distal esophagus IBS (irritable bowel syndrome) Alcohol use disorder Insomnia Graves disease Surgical History Surgical History Hx of colonoscopy History of esophagogastroduodenoscopy (EGD) Social History Social History Household Members: Spouse Housing: House Do you presently have visiting nurse or other home services: No Alcohol intake: never Comment: PT REFUSED Patient Tobacco Use Status: Former Tobacco user Tobacco use type: Cigarette Years Smoked: 15 e-Cigarette/Vaping Use: Never Used Use of substances other than those prescribed or required for medical reasons: No Advance Directives: No Advance Directives Information Provided: Yes Advance Directives Date on File: 06/11/23 service: No Meds Allergies Allergy/AdvReac Type Severity Reaction Status Date / Time Penicillins (PENICILLINS) Allergy Intermediate DIFF Verified 02/02/25 14:21 BREATHING prochlorperazine (From AdvReac Intermediate Muscle Verified 02/02/25 14:21 Compazine) cramps Home Medications ?Medication ?Instructions ?Recorded ?Confirmed ?Last Taken ?Type acetaminophen 500 mg tablet 1,000 mg PO DAILY PRN Pain 06/09/23 08/01/23 Unknown History cyclobenzaprine 10 mg tablet 10 mg PO DAILY PRN muscle spasm 06/09/23 08/01/23 Unknown History eszopiclone 3 mg tablet 3 mg PO BEDTIME 06/09/23 02/02/25 06/08/23 History levothyroxine 100 mcg tablet 100 mcg PO SUTUWETHFRSA 06/09/23 02/02/25 06/08/23 History (Levoxyl) Documented by User: Dahlia Ramirez MD 02/04/25 08:34 [facility] Past Medical History Medical History Change in stool Opioid abuse LUQ abdominal pain Former smoker, stopped smoking many years ago Schatzki's ring of distal esophagus IBS (irritable bowel syndrome) Alcohol use disorder Insomnia Graves disease Family History Family history of problems with anesthesia: No Surgical History Surgical History Hx of colonoscopy History of esophagogastroduodenoscopy (EGD) History of Problems with Anesthesia: No Social History Social History Household Members: Spouse Housing: House Do you presently have visiting nurse or other home services: No Alcohol intake: never Comment: PT REFUSED Patient Tobacco Use Status: Former Tobacco user Tobacco use type: Cigarette Years Smoked: 15 e-Cigarette/Vaping Use: Never Used Use of substances other than those prescribed or required for medical reasons: No Advance Directives: No Advance Directives Information Provided: Yes Advance Directives Date on File: 06/11/23 service: No Meds Allergies Allergy/AdvReac Type Severity Reaction Status Date / Time Penicillins (PENICILLINS) Allergy Intermediate DIFF Verified 02/02/25 14:21 BREATHING prochlorperazine (From AdvReac Intermediate Muscle Verified 02/02/25 14:21 Compazine) cramps Home Medications ?Medication ?Instructions ?Recorded ?Confirmed ?Last Taken ?Type acetaminophen 500 mg tablet 1,000 mg PO DAILY PRN Pain 06/09/23 08/01/23 Unknown History cyclobenzaprine 10 mg tablet 10 mg PO DAILY PRN muscle spasm 06/09/23 08/01/23 Unknown History eszopiclone 3 mg tablet 3 mg PO BEDTIME 06/09/23 02/02/25 06/08/23 History levothyroxine 100 mcg tablet 100 mcg PO SUTUWETHFRSA 06/09/23 02/02/25 06/08/23 History (Levoxyl) Exam Airway Mallampati Class: II TM Dist: >3cm Neck ROM: Full Heart: rrr Lungs: cta Assessment and Plan Assessment Anesthesia Assessment: Anesthesia Plan Discussed and Chart Reviewed Final Anesthetic Review Family History of Problems with Anesthesia: No History of Problems with Anesthesia: No NPO: Yes ASA Class: III Final Preanesthetic Review: No Changes in Pt Med Stat, Meds/Allgs Chart Reviewed, Consent Obtained/Reviewed and Anes Risks/Benef Reviewed Patient Risk: Intermediate Procedure Risk: Low Anesthetic Plan Anesthetic Plan: MAC: Disposition: Standard PACU
[2025-02-02 14:23] VITALS: BMI 19.8
[2025-02-04 07:17] VITALS: BP 165/88; PULSE 66; RESP 16; TEMP 37.2; O2SAT 99
[2025-02-04] MEDS: Lactated Ringers 1,000 ML 100 ML IVCONT (07:19)
--- NOTE | 2025-02-04 07:46 | MHC.SHP ---
Pre-Procedural Eval Section A - 24 Hr Update-Section A only Date of Service: 02/04/25 Section B - Complete if H&P > 30 days Chief Complaint: Abnormal weight loss,gerd, Details of Present Illness: Opioid abuse LUQ abdominal pain Former smoker, stopped smoking many years ago Schatzki's ring of distal esophagus IBS (irritable bowel syndrome) Alcohol use disorder Insomnia Graves disease Surgical History Hx of colonoscopy History of esophagogastroduodenoscopy (EGD) Present Medications: see Short Stay Collaborative assessment Allergies: Allergies Allergy/AdvReac Type Severity Reaction Status Date / Time Penicillins (PENICILLINS) Allergy Intermediate DIFF Verified 02/02/25 14:21 BREATHING prochlorperazine (From AdvReac Intermediate Muscle Verified 02/02/25 14:21 Compazine) cramps Review of Systems Review of Systems Comment: Ten point ROS negative Exam Exam Comment: Gen appear: No acute distress HEENT: no icterus Chest: No overt resp distress Abd: soft, nontender, nondistended Psych: Stable affect, answering questions appropriately Neuro: A/Ox3 noted to move all extremities spontaneously Ext: no peripheral edema Plan Diagnosis/Plan: Unchanged I have reviewed the history and physical and performed a pertinent physical examination on my patient. No changes have occurred unless specified. Time Spent With Patient Time: Total time managing care of this patient today ____ minutes.
[2025-02-04 08:26] VITALS: BP 127/73; PULSE 75; RESP 16; TEMP 36.5; O2SAT 98
--- NOTE | 2025-02-04 08:28 | P.OPN-COLO_ITS ---
Colonoscopy Operative Note Operative Note Date of Service: 02/04/25 Narrative: Procedure: Upper endoscopy and colonoscopy Indication: GERD, weight loss, change in bowel habits Endoscopist: Myranda Santiago MD Anesthesia Provider: Desirae Edward CRNA Anesthesia type: MAC Instrument: [id number] and [id number] EGD Procedure:?? The procedure, indications, preparation and potential complications were reviewed with the patient, who indicated understanding and gave written informed consent to proceed. The endoscope was introduced through the mouth, and advanced to the 2nd part of the duodenum. The mucosa was carefully examined on slow withdrawal of the endoscope. The patient tolerated the procedure well. There were no immediate complications.? EGD Findings:? * Esophagus:? Normal esophageal mucosa was noted. The Z-line was at 37 cm. Cold forceps biopsies were taken from middle and lower esophagus to rule out eosinophilic esophagitis. * Stomach:? Erythema and erosions in the antrum. Retroflexion was performed in the cardia. Cold forceps biopsies were taken from the stomach body and antrum. * Duodenum:? Normal duodenal mucosa. Cold forceps biopsies were taken from the duodenal bulb and 2nd portion of the duodenum to rule out celiac sprue. Colonoscopy Procedure:? The patient was then turned for the colonoscopy. A digital rectal exam was performed which was abnormal for ext hemorrhoids.? A distal attachment cap was affixed to the tip of the scope and the colonoscope was then inserted through the anus and advanced through the colon and advanced to the cecum at 75 cm and terminal ileum.? Appendiceal orifice and ileocecal valve were identified. Mucosa was carefully examined under high definition white light as the instrument was slowly withdrawn in a retrograde panoramic fashion. Retroflexion was performed in ascending colon and rectum. The procedure was not difficult. The quality of the prep was BBPS: 3+3+3 = adequate Withdrawal time 12 minutes Limitations: No limitations Findings: Mucosa: Normal colon and terminal ileum mucosa. Cold forceps biopsies were taken from the right and left side of the colon to rule out microscopic colitis. Protruding lesions: * One sessile polyp of size 4 mm noted in the cecum. Cold snare polypectomy was performed. The polyp was completely removed and retrieved. * Large internal hemorrhoids without stigmata of recent bleeding. Excavated lesions: * Mild diverticulosis of sigmoid colon. Impression: 1. Normal esophagus (biopsy) 2. Gastritis (biopsy) 3. Normal duodenum (biopsy) 4. Normal colon and terminal ileum mucosa (biopsy) 5. Total 1 polyp removed 6. Diverticulosis 7. Internal and external hemorrhoids Recommendations:?? * Follow-up path results * Avoid NSAIDs * Cont PPI * H Pylori treatment if biopsies + * Repeat colonoscopy for CRC screening in 7-10 years.
[2025-02-04 08:41] VITALS: BP 142/81; PULSE 61; RESP 16; TEMP 36.6; O2SAT 98
== END 2025-02-04 09:11 | disposition home or self-care (01) ==
PROVIDERS: PCP Family Medicine; Visit Provider Internal Medicine
PROC: (CPT 45385; principal; 2025-02-04 08:10)
DX: R19.4 Change in bowel habit (principal); D12.0 Benign neoplasm of cecum; K57.30 Diverticulosis of large intestine without perforation or abscess without bleeding; K64.8 Other hemorrhoids; K64.4 Residual hemorrhoidal skin tags; R10.12 Left upper quadrant pain; R63.0 Anorexia; R63.4 Abnormal weight loss; Z68.1 Body mass index [BMI] 19.9 or less, adult; K21.9 Gastro-esophageal reflux disease without esophagitis; K29.70 Gastritis, unspecified, without bleeding; R79.89 Other specified abnormal findings of blood chemistry; K76.0 Fatty (change of) liver, not elsewhere classified; R53.83 Other fatigue; E05.00 Thyrotoxicosis with diffuse goiter without thyrotoxic crisis or storm; Z88.0 Allergy status to penicillin; F10.21 Alcohol dependence, in remission; F11.21 Opioid dependence, in remission; Z87.891 Personal history of nicotine dependence; Z79.899 Other long term (current) drug therapy
CPT/HCPCS: 45385; 45380; 43239; 88305; 88313; 88342; J2003; J2704

== ENCOUNTER → 2025-02-04 06:52 | Outpatient (BNV) | payer OTHER, SELFPAY | PROVIDERS: PCP Family Medicine; Visit Provider Internal Medicine | DX: K21.9 Gastro-esophageal reflux disease without esophagitis (principal); K29.70 Gastritis, unspecified, without bleeding; R63.4 Abnormal weight loss; R19.4 Change in bowel habit; D12.0 Benign neoplasm of cecum; K57.30 Diverticulosis of large intestine without perforation or abscess without bleeding; K64.8 Other hemorrhoids | CPT/HCPCS: 43239; 45380; 45385 ==

== ENCOUNTER 2025-02-24 08:47 | Outpatient (AMB) | payer OTHER, SELFPAY ==
--- NOTE | 2025-02-24 08:53 | MHC.OFFVIS ---
Vital Signs 02/24/25 08:54 Height 5 ft 1 in Weight 105 lb BMI 19.8 BP 112/72 Blood Pressure Location Lt brachial Position Sitting Pulse 99 Oxygen Flow Rate 95 Intake Visit Reasons: s/p EGD, [place] Intake Note: Patient follow up for acid reflux, lab, Colonoscopy, CT scan/x-ray results. Patient cc: LUQ pain, acid reflux and is a lot of burning and not be able to burping that cause her pain and BM are better, she started the probiotic x 10 date, fatigue and always tired in the afternoon. Manager Leasing Required: No Accompanied by: Self / Same As Patient Allergies Penicillins (PENICILLINS) Allergy (Intermediate, Verified 02/24/25 08:53) DIFF BREATHING prochlorperazine (From Compazine) Adverse Reaction (Intermediate, Verified 02/24/25 08:53) Muscle cramps Medication List - Last Reconciled 02/24/25 by Dana Swenson, DAIANA acetaminophen 1,000 mg PO DAILY PRN jtvblccoux-baenbgljerkyf-vwra 50-300-40 mg (Fioricet) 1 cap PO Q8H PRN cyclobenzaprine 10 mg PO DAILY PRN eszopiclone 3 mg PO BEDTIME fluticasone propionate 50 mcg/actuation 2 sprays intranasal DAILY PRN levothyroxine (Levoxyl) 100 mcg PO SUTUWETHFRSA omeprazole 40 mg PO DAILY ondansetron 4 mg PO Q6-8H PRN HPI HPI s/p EGD, [place]: Details: Patient is a 59-year-old female with PMH GERD, graves disease, alcohol dependence in remission, opioid dependence in remission and former smoker. F/u after EGD and colonoscopy on 02-04-25; review test results and ongoing GI sx (reflux, constipation, LUQ abd pain, weight maintenance) Pt continues to experience postprandial burning retrosternal sx, lasting 2-3 hrs, generally after any food, not related to specific triggers. Reports associated LUQ abdominal soreness and bloating, especially after meals; describes inability to belch at times, giving sensation of pressure or urge to vomit. Stool consistency has improved since restarting nightly probiotic (7-8d), with daily BMs, but still firm and occasional straining required. Previously noted erratic BM pattern and intermittently incomplete emptying now improved. Passing flatus without difficulty. Reports increased dry mouth, continues to focus on hydration but notes challenges due to busy lifestyle. No new dysphagia, bleeding, or melena. Energy somewhat limited, reducing physical activity. Reports inability to gain weight despite efforts and previous stable thyroid. Denies recent hospitalizations or acute GI flares since last visit. No new or concerning acute events since prior consultations. [facility] Medical History (Updated 02/24/25 @ 10:39 by Dana Swenson CNP) Change in weight Change in stool Opioid abuse LUQ abdominal pain Former smoker, stopped smoking many years ago Schatzki's ring of distal esophagus IBS (irritable bowel syndrome) Alcohol use disorder Insomnia Graves disease Surgical History Hx of colonoscopy History of esophagogastroduodenoscopy (EGD) Social History Household Members: Spouse Housing: House Do you presently have visiting nurse or other home services: No Alcohol intake: never Comment: PT REFUSED Patient Tobacco Use Status: Former Tobacco user Tobacco use type: Cigarette Years Smoked: 15 e-Cigarette/Vaping Use: Never Used Advance Directives Date on File: 06/11/23 service: No Review of Systems Const Reports as per HPI ENT Reports as per HPI Card Reports as per HPI Resp Reports as per HPI GI Reports as per HPI Reports as per HPI Physical Exam Vital Signs: Last Vital Signs Pulse 99 02/24/25 08:54 BP 112/72 02/24/25 08:54 Oxygen Flow Rate 95 02/24/25 08:54 BMI result Body Mass Index 19.8 Const General: healthy appearing, no acute distress and well developed Nutritional Appearance: average body habitus Orientation/consciousness: patient oriented x3 HEENT Head: Yes normal to inspection, Yes normocephalic and Yes atraumatic Face and sinus: Yes normal facial exam Eyes General: appearance normal, both eyes and all related structures Neck Neck: Yes normal visual inspection Resp Effort & Inspection: normal respiratory effort, able to speak in complete sentences, no tracheal deviation and symmetric chest movement Cardio Jugular venous distension: no JVD GI Inspection: Yes normal to inspection and No distended Palpation (GI): Soft to palpation, not firm, nontender and No hepatosplenomegaly present Auscultation: normoactive bowel sounds Neuro General: patient oriented x3 Gait exam (Neuro): Normal gait present Psych Appearance: grossly normal Mental Status: mental status grossly normal Speech and movement: Normal speech and movement present Affect: normal affect Attitude: cooperative Thought process: Normal thought process present Thought content: Normal thought content present Insight: Good insight present (Psych) Judgement: Good judgement present (Psych) Results Reviewed Results Reviewed: Date of Service: 12/15/24 Procedure(s): CT abdomen pelvis w IV con Accession Number(s): [id number] cc: Dion Ocampo MD; Rosalio Johnson MD~ Report Number: [id number]: Total DLP = 262.00 mGy-cm CLINICAL HISTORY: LLQ pain? Divericulitis CT abdomen and pelvis with contrast Comparison: 10/09/2024 Findings: Lung bases are clear. No acute bony abnormalities. Mild nonspecific stranding left peritoneal fat. Underlying small bowel wall thickening noted. Findings may represent an acute enteritis pattern. No significant bowel distention noted. Liver and spleen within normal limits. Pancreas and adrenal glands unremarkable. Gallbladder is within normal limits. No significant focal renal abnormalities. No renal stones or hydronephrosis. Abdominal aorta is normal in caliber. No free fluid or adenopathy in the pelvis. No diverticulitis. Appendix unremarkable. Uterus normal size. No adnexal abnormality. Impression: Probable acute enteritis pattern left abdomen Date of Service: 10/09/24 Procedure(s): CT abdomen pelvis w IV con Accession Number(s): [id number] cc: Dion Ocampo MD; Dana Swenson CNP~ Report Number: [id number]: Total DLP = 201.00 mGy-cm CLINICAL HISTORY: R10.12 - Left upper quadrant pain CT abdomen and pelvis with contrast Comparison: None Findings: The visualized portions of the lungs are normal in appearance. The liver is normal in size without suspicious focal hepatic lesions. No intrahepatic or extrahepatic ductal dilatation is seen. The hepatic and portal veins are patent. No calcified gallstones in the gallbladder. Pancreas, spleen and adrenals are normal in appearance. No suspicious focal lesion of the kidneys. No hydronephrosis or calculi. The abdominal aorta demonstrates no evidence of aneurysmal dilatation or dissection. There are food debris within the stomach. Contrast filling defects in the stomach. Heterogeneous contrast enhancement of the gastric antrum. Moderate amount of fecal material within the colon. Bowel wall thickening of the descending colon. No evidence of bowel obstruction. No evidence of acute appendicitis. The pelvic organs are within normal limits. No intraperitoneal free air or fluid is visualized. No pathologic lymphadenopathy is seen. There are no osseous or soft tissue abnormalities. IMPRESSION: Contrast filling defects in the stomach likely represent food debris. Heterogeneous contrast enhancement of the gastric antrum. Correlation with EGD findings as indicated. Bowel wall thickening of the descending colon could be due to nondistention. Colitis can not be excluded. Correlation with colonoscopy findings as indicated. Assessment & Plan Assessment & Plan (1) Acid reflux: Comment: 02/04/25 EGD Normal esophagus and duodenum; Gastritis Code(s): K21.9 - Gastro-esophageal reflux disease without esophagitis Category: Medical Qualifiers: Esophagitis presence: without esophagitis Qualified Code(s): K21.9 - Gastro-esophageal reflux disease without esophagitis Plan: Persistent sx, minimally responsive to maximal PPI; chronic gastritis on EGD; looking for improved efficacy Additional testing: - Barium swallow (03-18-25) to evaluate for structural pathology (e.g., hiatal hernia, ring, motility disorder) Medications: - Switch PPI: Pantoprazole 40mg PO QAM x1 daily, 30 min before food (start now; d/c omeprazole); rationale?alternative PPI, may improve sx - Continue probiotic nightly - Educate re: adherence to dosing instructions for maximal efficacy Lifestyle Recommendations: - Reinforce small meals; avoid over/late eating or lying recumbent postprandially; continue identifying/avoiding triggers; maintain high-fiber, anti-inflammatory diet; hydration prioritized - Provided dietary counseling?fiber balance, meal timing, hydration Referrals / Coordination of Care: - None at this time pending barium swallow results Follow-Up Plan: - Return 6 weeks, or sooner if worsening; reassess response to pantoprazole and review swallow result (2) Constipation: Code(s): K59.00 - Constipation, unspecified Qualifiers: Constipation type: unspecified constipation type Qualified Code(s): K59.00 - Constipation, unspecified Plan: Improved BM regularity/frequency since probiotic use; BMs firm, occasional straining; moderate fecal load noted on 10/12/24 CT; continues to prefer lifestyle focus versus pharmacologic Additional testing: - None indicated unless sx worsen Medications: - [place] Miralax or stool softener PRN for days without BM or straining; avoid routine stimulant laxatives (Dulcolax to be used rarely) - Continue daily probiotic if effective Lifestyle Recommendations: - Maintain high fiber/protein balance; increase water intake (goal: >2L/d if tolerated); physical activity as energy permits - Resume/maintain dietary food/sx journal for pattern recognition Referrals / Coordination of Care: - None, unless new/worsening sx or weight loss persists Follow-Up Plan: - Reevaluate in 6 weeks to monitor bowel habits, weight trends (3) Change in weight: Comment: 02/04/25 colonoscopy complete with good prep- 4mm Tubular adenoma (cecum),diverticulosis, hemorrhoids. Recommendations for repeat in 7-10 years. Code(s): R68.89 - Other general symptoms and signs Category: Medical Plan: Inability to gain weight despite focused nutrition, with no cause found on lab/radiology/GI eval; including negative CT, CXR and serology/immunology( GI focused). 01/2025 EGD/colo unremarkable. Known thyroid d/o, established with Endo. Barium SS pending. Additional testing: - Barium as above - Monitor post-bowel regimen optimization Medications: -Needs Hep B immunity, will review vaccine recommendation at future visit. Lifestyle Recommendations: Continue high-calorie, high-protein/adequate fiber diet; ensure dietary journal documentation continues; review calorie/protein targets with clinical gas well pumper if further loss Referrals / Coordination of Care: Consider nutrition referral if future worsening Follow-Up Plan: Monitor wt q visit; earlier if further decrease Plan Follow-up in 6 weeks or sooner as needed Time: I spent a total of 30 minutes on the date of encounter which includes: Preparing to see the patient (reviewed previous documentation, test results and medical history) Performing a medically appropriate exam and/or evaluation Ordering medications, tests, and procedures Documenting clinical information in the health record Medications: New pantoprazole Take 1 tablet daily. Best taken on an empty stomach, 30 minutes before food 40 mg PO QAM 90 tabs 1RF Discontinued omeprazole Discontinued Reason: Duplicate 40 mg PO DAILY 90 caps 1RF Coding Level of Care Code Established Pt Est Pt Level 3 (87972) Patient Type Established Diagnoses Gastroesophageal reflux disease without esophagitis K21.9 Esophagitis presence: without esophagitis Constipation, unspecified constipation type K59.00 Constipation type: unspecified constipation type Change in weight R68.89
[2025-02-24 08:54] VITALS: BP 112/72; PULSE 99; BMI 19.8
--- OUTSIDE RECORDS SUMMARY | 2025-02-24 09:22 | XMS_ITS | Encounter Summary ---
Author Organization [facility] Address [address] [place] [phone] Phone Care Team Providers Care Accountant Manager Name Role Phone Larry Borjas MD Primary Care Provide r Dion Ocampo MD Primary Care Provider + Encounter Details Date Type Department Care Team (Late st Contact Info) Description 10/28/2019 Procedure Pass [facility], Ct Scan - [address] [address] Social History Tobacco Use Types Packs/Day Years [...] 8:20 AM EST Office Visit [facility] [address] [place] [phone] Nuha Boss MD [address] [place] [phone] 03/31/2025 11:15 AM EST Office Visit [facility] [address] [place] [address] Unknown, Unknown, Vilma Aguilera PA-C [address] [address] [email or web address] documented as of this encounter Visit Diagnoses Not on filedocumented in this encounter Care Teams Accountant Manager Relationship Specialty Start Date End Date Larry Borjas MD PCP - General Internal Medicine 08/31/18 03/12/24 Dion Ocampo MD [address] [place] [phone] PCP - General Family Medicine 03/13/24 documented as of this encounter Additional Source Comments The information contained in this document represents components of the legal health record. It is not the complete legal health record.[facility]
--- OUTSIDE RECORDS SUMMARY | 2025-02-24 09:22 | XMS_ITS | Clinical Summary ---
Author Organization [facility] Address [address] [place] [phone] Phone Care Team Providers Care Plastic Molding Operator Name Role Phone Dion Ocampo MD Primary [...] 03/13/2024 Hypothyroidism following radioiodine therapy 2 03/13/2024 Family History Medical History Relation Comments Cancer [...] 8:20 AM EST Office Visit [facility] [address] [place] [phone] Nuha Boss MD [address] [place] [phone] 03/31/2025 11:15 AM EST Office Visit [facility] [address] [place] [phone] Unknown, Unknown, Vilma Aguilera, PABrisaC [address] [place] [phone] Health Maintenance Due Date Last Done Comments [...] * TSH (10/24/2024 8:05 AM EDT) Blood us Nuha Boss MD LAB BLOOD ORDERABLES F inal Result [address] [address] from Last 3 Months or Most Recently Relevant to Health Maintenance Insurance O O O O O O HMO HMO Care Teams Plastic Molding Operator Relationship Specialty Start Date End Date Dion Ocampo MD [address] [place] [address] PCP - General Family Medicine 03/13/24 Additional Source Comments The information contained in this document represents components of the legal health record. It is not the complete legal health record.[facility]
--- OUTSIDE RECORDS SUMMARY | 2025-02-24 09:22 | XMS_ITS | Encounter Summary ---
Author Organization [facility] Address [address] [place] [phone] Phone Care Team Providers Care Laboratory Mechanical Technician Name Role Phone Larry Borjas MD Primary Care Provide r Dion Ocampo MD Primary Care Provider + Encounter Details Date Type Department Care Team (Late st Contact Info) Description 10/28/2019 Procedure Pass [facility], Ct Scan - [address] [id number] Social History Tobacco Use Types Packs/Day Years [...] 8:20 AM EST Office Visit [facility] [address] [place] [phone] Nuha Boss MD [address] [place] [phone] 03/31/2025 11:15 AM EST Office Visit [facility] [address] [place] [address] Unknown, Unknown, Vilma Aguilera PA-C [address] [address] [email or web address] documented as of this encounter Visit Diagnoses Not on filedocumented in this encounter Care Teams Laboratory Mechanical Technician Relationship Specialty Start Date End Date Larry Borjas MD PCP - General Internal Medicine 08/31/18 03/12/24 Dion Ocampo MD [address] [place] [phone] PCP - General Family Medicine 03/13/24 documented as of this encounter Additional Source Comments The information contained in this document represents components of the legal health record. It is not the complete legal health record.[facility]
== END 2025-02-24 09:36 | disposition home or self-care (01) ==
LOC: HO.HGI 08:48
PROVIDERS: PCP Family Medicine; Visit Provider Nurse Practitioner Family
DX: K21.9 Gastro-esophageal reflux disease without esophagitis (principal); K59.00 Constipation, unspecified; R68.89 Other general symptoms and signs
CPT/HCPCS: 99213